=== PATIENT | female | born 1960 | race Caucasian/White ===

== ENCOUNTER → 2016-08-27 | Outpatient (REF) | payer OTHER ==
[2016-08-27 12:07] LABS: INR 2.4
== END ==
LOC: M LABDRAWC 11:07
PROVIDERS: ATTEND Surgery Vascular Surgery
DX: Z79.01 Long term (current) use of anticoagulants (principal)

== ENCOUNTER → 2016-09-03 | Outpatient (REF) | payer OTHER ==
[2016-09-03 12:08] LABS: INR 3.15
== END ==
LOC: M LABDRAWC 11:10
PROVIDERS: ATTEND Surgery Vascular Surgery
DX: Z79.01 Long term (current) use of anticoagulants (principal)

== ENCOUNTER → 2016-09-10 | Outpatient (REF) | payer OTHER ==
[2016-09-10 11:22] LABS: INR 2.11
== END ==
LOC: M LABDRAWC 11:04
PROVIDERS: ATTEND Surgery Vascular Surgery
DX: Z79.01 Long term (current) use of anticoagulants (principal)

== ENCOUNTER → 2016-09-16 | Outpatient (REF) | payer OTHER ==
[2016-09-16 11:31] LABS: INR 3.17
== END ==
LOC: M LABDRAWC 11:04
PROVIDERS: ATTEND Surgery Vascular Surgery
DX: Z79.01 Long term (current) use of anticoagulants (principal)

== ENCOUNTER → 2016-09-24 | Outpatient (REF) | payer OTHER ==
[2016-09-24 11:53] LABS: INR 2.55
== END ==
LOC: M LABDRAWC 11:35
PROVIDERS: ATTEND Surgery Vascular Surgery
DX: Z79.01 Long term (current) use of anticoagulants (principal)

== ENCOUNTER → 2016-09-29 | Outpatient (REF) | payer OTHER ==
[2016-09-29 17:36] LABS: ANION GAP 6 MEQ/L (8-16); BLOOD UREA NITROGEN 17 MG/DL (7-18); CALCIUM LEVEL 8.7 MG/DL (8.5-10.1); CARBON DIOXIDE LEVEL 30 MEQ/L (21-32); CHLORIDE LEVEL 106 MEQ/L (98-107); CREATININE FOR GFR 0.75 MG/DL (0.55-1.02); FREE T4 0.78 NG/DL (0.76-1.46); GLOMERULAR FILTRATION RATE > 60.0 (>51); GLUCOSE, FASTING 86 MG/DL (70-105); POTASSIUM SERUM 4.2 MEQ/L (3.5-5.1); SODIUM LEVEL 142 MEQ/L (136-145)
== END ==
LOC: M SFHCCLAY 11:24
PROVIDERS: ATTEND Family Medicine
DX: G25.0 Essential tremor (principal)

== ENCOUNTER → 2016-10-08 | Outpatient (REF) | payer OTHER ==
[2016-10-08 11:48] LABS: INR 2.32
== END ==
LOC: M LABDRAWC 11:28
PROVIDERS: ATTEND Surgery Vascular Surgery
DX: Z79.01 Long term (current) use of anticoagulants (principal)

== ENCOUNTER → 2016-10-22 | Outpatient (REF) | payer OTHER ==
[2016-10-22 11:33] LABS: INR 1.63
== END ==
LOC: M LABDRAWC 11:09
PROVIDERS: ATTEND Surgery Vascular Surgery
DX: Z79.01 Long term (current) use of anticoagulants (principal)

== ENCOUNTER → 2016-10-29 | Outpatient (REF) | payer OTHER ==
[2016-10-29 13:08] LABS: INR 3.17
== END ==
LOC: M LABDRAWC 11:56
PROVIDERS: ATTEND Surgery Vascular Surgery
DX: Z79.01 Long term (current) use of anticoagulants (principal)

== ENCOUNTER → 2016-11-05 | Outpatient (REF) | payer OTHER ==
[2016-11-05 11:44] LABS: INR 1.74
== END ==
LOC: M LABDRAWC 11:21
PROVIDERS: ATTEND Surgery Vascular Surgery
DX: Z79.01 Long term (current) use of anticoagulants (principal)

== ENCOUNTER → 2016-11-15 | Outpatient (REF) | payer OTHER ==
[2016-11-15 12:57] LABS: INR 2.53
== END ==
LOC: M LABDRAWC 11:49
PROVIDERS: ATTEND Surgery Vascular Surgery
DX: Z79.01 Long term (current) use of anticoagulants (principal)

== ENCOUNTER → 2016-11-23 | Outpatient (REF) | payer OTHER ==
[2016-11-23 12:09] LABS: INR 2.52
== END ==
LOC: M LABDRAWC 11:38
PROVIDERS: ATTEND Surgery Vascular Surgery
DX: Z79.01 Long term (current) use of anticoagulants (principal)

== ENCOUNTER → 2016-11-25 | Outpatient (CLI) | payer OTHER ==
--- NOTE | 2016-11-25 16:15 | REP ---
CT of the chest without IV contrast for follow up of lung nodules: Comparisons are the low-dose lung screening CT dated 08/02/2016 and a remote chest CT of 08/27/2010. On the low-dose lung screening CT dated 08/02/2016 there was a ground-glass nodule in the superior segment of the left lower lobe measuring 9 mm. This is again identified on the study today on image 43 and measures 8 mm. On the study today there are multiple other lung nodules, all unchanged from 08/27/2010 as follows: Image 41, left upper lobe, probable vascular confluence. Image 56, right middle lobe. Image 64, right lower lobe. Image 70, right lower lobe. Image 80, left lower lobe. Image 83, right lower lobe. There is no mediastinal or axillary adenopathy. In the absence of IV contrast the study is insensitive for hilar adenopathy. The thoracic aorta is unremarkable. Cardiac size is normal. The visualized upper abdominal contents are unremarkable. There is no adrenal mass. Impression: Multiple lung nodules as described. There is a ground-glass nodule in the superior segment of the left lower lobe that is stable from 08/02/2016. Continued follow up of this nodule is recommended. All of the other nodules are stable from 08/27/2010 and are likely benign. Signed by Shun Penny MD 11/25/2016 04:06 P
== END ==
LOC: M RAD 14:54
PROVIDERS: ATTEND Internal Medicine Pulmonary Disease
DX: R91.8 Other nonspecific abnormal finding of lung field (principal)

== ENCOUNTER → 2016-12-17 | Outpatient (REF) | payer OTHER ==
[2016-12-17 14:36] LABS: INR 6.39
== END ==
LOC: M LABDRAWC 11:40
PROVIDERS: ATTEND Surgery Vascular Surgery
DX: Z79.01 Long term (current) use of anticoagulants (principal)

== ENCOUNTER → 2016-12-20 | Outpatient (REF) | payer OTHER ==
[2016-12-20 11:59] LABS: INR 1.25
== END ==
LOC: M LABDRWCV 11:08
PROVIDERS: ATTEND Surgery Vascular Surgery
DX: Z79.01 Long term (current) use of anticoagulants (principal)

== ENCOUNTER → 2016-12-27 | Outpatient (REF) | payer OTHER ==
[2016-12-27 12:21] LABS: INR 2.03
== END ==
LOC: M LABDRAWC 11:13
PROVIDERS: ATTEND Surgery Vascular Surgery
DX: Z79.01 Long term (current) use of anticoagulants (principal)

== ENCOUNTER → 2017-01-04 | Outpatient (REF) | payer OTHER ==
[2017-01-04 12:00] LABS: INR 1.52
== END ==
LOC: M LABDRAWC 11:15
PROVIDERS: ATTEND Surgery Vascular Surgery
DX: Z79.01 Long term (current) use of anticoagulants (principal)

== ENCOUNTER → 2017-01-11 | Outpatient (REF) | payer OTHER ==
[2017-01-11 12:10] LABS: INR 2.89
== END ==
LOC: M LABDRAWC 11:07
PROVIDERS: ATTEND Surgery Vascular Surgery
DX: Z51.81 Encounter for therapeutic drug level monitoring (principal); Z79.01 Long term (current) use of anticoagulants

== ENCOUNTER → 2017-01-18 | Outpatient (REF) | payer OTHER ==
[2017-01-18 12:39] LABS: INR 3.43
== END ==
LOC: M LABDRAWC 11:23
PROVIDERS: ATTEND Surgery Vascular Surgery
DX: Z51.81 Encounter for therapeutic drug level monitoring (principal); Z79.01 Long term (current) use of anticoagulants

== ENCOUNTER → 2017-01-20 | Outpatient (REF) | payer OTHER | LOC: M SFHCCLAY 11:26 | PROVIDERS: ATTEND Family Medicine | DX: J44.1 Chronic obstructive pulmonary disease with (acute) exacerbation (principal) ==

== ENCOUNTER → 2017-01-25 | Outpatient (REF) | payer OTHER ==
[2017-01-25 11:58] LABS: INR 2.66
== END ==
LOC: M LABDRAWC 11:16
PROVIDERS: ATTEND Physician Assistant
DX: Z51.81 Encounter for therapeutic drug level monitoring (principal); Z79.01 Long term (current) use of anticoagulants

== ENCOUNTER → 2017-02-01 | Outpatient (REF) | payer OTHER ==
[2017-02-01 12:04] LABS: INR 2.03
== END ==
LOC: M LABDRAWC 11:34
PROVIDERS: ATTEND Physician Assistant
DX: Z51.81 Encounter for therapeutic drug level monitoring (principal); Z79.01 Long term (current) use of anticoagulants

== ENCOUNTER → 2017-02-08 | Outpatient (REF) | payer OTHER ==
[2017-02-08 13:19] LABS: INR 2.6
== END ==
LOC: M LABDRAWC 11:16
PROVIDERS: ATTEND Physician Assistant
DX: Z51.81 Encounter for therapeutic drug level monitoring (principal); Z79.01 Long term (current) use of anticoagulants

== ENCOUNTER → 2017-02-15 | Outpatient (REF) | payer OTHER ==
[2017-02-15 11:47] LABS: INR 1.09
== END ==
LOC: M LABDRAWC 11:26
PROVIDERS: ATTEND Physician Assistant
DX: Z51.81 Encounter for therapeutic drug level monitoring (principal); Z79.01 Long term (current) use of anticoagulants

== ENCOUNTER → 2017-02-23 | Outpatient (REF) | payer OTHER ==
[2017-02-23 11:59] LABS: INR 1.94
== END ==
LOC: M LABDRAWC 11:35
PROVIDERS: ATTEND Physician Assistant
DX: Z51.81 Encounter for therapeutic drug level monitoring (principal); Z79.01 Long term (current) use of anticoagulants

== ENCOUNTER → 2017-03-02 | Outpatient (REF) | payer OTHER ==
[2017-03-02 11:50] LABS: INR 1.89
== END ==
LOC: M LABDRAWC 11:21
PROVIDERS: ATTEND Physician Assistant
DX: Z51.81 Encounter for therapeutic drug level monitoring (principal); Z79.01 Long term (current) use of anticoagulants

== ENCOUNTER → 2017-03-09 | Outpatient (REF) | payer OTHER ==
[2017-03-09 11:45] LABS: INR 1.9
== END ==
LOC: M LABDRAWC 11:10
PROVIDERS: ATTEND Physician Assistant
DX: Z51.81 Encounter for therapeutic drug level monitoring (principal); Z79.01 Long term (current) use of anticoagulants

== ENCOUNTER → 2017-03-16 | Outpatient (REF) | payer OTHER ==
[2017-03-16 11:55] LABS: INR 2.42
== END ==
LOC: M LABDRAWC 11:36
PROVIDERS: ATTEND Physician Assistant
DX: Z51.81 Encounter for therapeutic drug level monitoring (principal); Z79.01 Long term (current) use of anticoagulants

== ENCOUNTER → 2017-03-30 | Outpatient (REF) | payer OTHER ==
[2017-03-30 12:09] LABS: INR 3.16
== END ==
LOC: M LABDRAWC 11:26
PROVIDERS: ATTEND Physician Assistant
DX: Z51.81 Encounter for therapeutic drug level monitoring (principal); Z79.01 Long term (current) use of anticoagulants

== ENCOUNTER → 2017-04-06 | Outpatient (REF) | payer OTHER ==
[2017-04-06 11:50] LABS: INR 2.47
== END ==
LOC: M LAB REF 11:26
PROVIDERS: ATTEND Physician Assistant
DX: Z51.81 Encounter for therapeutic drug level monitoring (principal); Z79.01 Long term (current) use of anticoagulants

== ENCOUNTER → 2017-04-13 | Outpatient (REF) | payer OTHER ==
[2017-04-13 14:48] LABS: INR 2.66
== END ==
LOC: M LAB REF 07:12
PROVIDERS: ATTEND Physician Assistant
DX: Z51.81 Encounter for therapeutic drug level monitoring (principal); Z79.01 Long term (current) use of anticoagulants

== ENCOUNTER → 2017-04-20 | Outpatient (REF) | payer OTHER ==
[2017-04-20 12:13] LABS: INR 2.66
== END ==
LOC: M LAB REF 11:10
PROVIDERS: ATTEND Physician Assistant
DX: Z51.81 Encounter for therapeutic drug level monitoring (principal); Z79.01 Long term (current) use of anticoagulants

== ENCOUNTER → 2017-05-05 | Outpatient (REF) | payer OTHER ==
[2017-05-05 14:34] LABS: INR 2.49
== END ==
LOC: M LABDRAWC 12:16
PROVIDERS: ATTEND Physician Assistant
DX: Z51.81 Encounter for therapeutic drug level monitoring (principal); Z79.01 Long term (current) use of anticoagulants

== ENCOUNTER → 2017-05-25 | Outpatient (REF) | payer OTHER ==
[2017-05-25 12:02] LABS: INR 2.44
== END ==
LOC: M LABDRAWC 11:29
PROVIDERS: ATTEND Physician Assistant
DX: Z79.01 Long term (current) use of anticoagulants (principal)

== ENCOUNTER → 2017-06-08 | Outpatient (REF) | payer OTHER ==
[2017-06-08 12:17] LABS: INR 3.35
== END ==
LOC: M LAB REF 11:19
PROVIDERS: ATTEND Physician Assistant
DX: Z51.81 Encounter for therapeutic drug level monitoring (principal); Z79.01 Long term (current) use of anticoagulants

== ENCOUNTER → 2017-06-15 | Outpatient (REF) | payer OTHER ==
[2017-06-15 12:43] LABS: INR 2.55
== END ==
LOC: M LABDRAWC 11:25
PROVIDERS: ATTEND Physician Assistant
DX: Z51.81 Encounter for therapeutic drug level monitoring (principal); Z79.01 Long term (current) use of anticoagulants; G45.9 Transient cerebral ischemic attack, unspecified

== ENCOUNTER → 2017-07-04 | Outpatient (REF) | payer OTHER | LOC: M SFHCCLAY 09:26 | PROVIDERS: ATTEND Family Medicine | DX: N30.00 Acute cystitis without hematuria (principal) ==

== ENCOUNTER → 2017-07-12 | Outpatient (REF) | payer OTHER ==
[2017-07-12 12:33] LABS: INR 3.68
== END ==
LOC: M LABDRAWC 12:00
PROVIDERS: ATTEND Physician Assistant
DX: Z79.01 Long term (current) use of anticoagulants (principal); G45.9 Transient cerebral ischemic attack, unspecified

== ENCOUNTER → 2017-07-19 | Outpatient (REF) | payer OTHER ==
[2017-07-19 11:44] LABS: INR 1.98
== END ==
LOC: M LABDRAWC 11:20
PROVIDERS: ATTEND Physician Assistant
DX: Z79.01 Long term (current) use of anticoagulants (principal); G45.9 Transient cerebral ischemic attack, unspecified

== ENCOUNTER → 2017-07-26 | Outpatient (REF) | payer OTHER ==
[2017-07-26 11:53] LABS: INR 2.71
== END ==
LOC: M LABDRAWC 11:24
PROVIDERS: ATTEND Physician Assistant
DX: Z51.81 Encounter for therapeutic drug level monitoring (principal); Z79.01 Long term (current) use of anticoagulants; G45.9 Transient cerebral ischemic attack, unspecified

== ENCOUNTER → 2017-08-02 | Outpatient (REF) | payer OTHER ==
[2017-08-02 12:02] LABS: INR 2.57
== END ==
LOC: M LABDRAWC 07:03
PROVIDERS: ATTEND Physician Assistant
DX: Z51.81 Encounter for therapeutic drug level monitoring (principal); Z79.01 Long term (current) use of anticoagulants; G45.9 Transient cerebral ischemic attack, unspecified

== ENCOUNTER → 2017-08-18 | Outpatient (REF) | payer OTHER ==
[2017-08-18 11:50] LABS: INR 2.08
== END ==
LOC: M LABDRAWC 11:16
DX: Z79.01 Long term (current) use of anticoagulants (principal); G45.9 Transient cerebral ischemic attack, unspecified

== ENCOUNTER → 2017-10-05 | Outpatient (REF) | payer OTHER ==
[2017-10-05 11:21] LABS: INR 3.96; PROTHROMBIN TIME 40.7 SECONDS (12.4-14.5)
[2017-10-05 11:43] LABS: ALBUMIN/GLOBULIN RATIO 1.18 (1.00-1.93); ALKALINE PHOSPHATASE 80 U/L (45-117); ALT/SGPT 25 U/L (12-78); ANION GAP 5 MEQ/L (8-16); AST/SGOT 18 U/L (7-37); BILIRUBIN,TOTAL 0.2 MG/DL (0.2-1.0); BLOOD UREA NITROGEN 11 MG/DL (7-18); CALCIUM LEVEL 8.8 MG/DL (8.5-10.1); CARBON DIOXIDE LEVEL 30 MEQ/L (21-32); CHLORIDE LEVEL 103 MEQ/L (98-107); CHOLESTEROL LEVEL 191 MG/DL (<200); CHOLESTEROL RISK RATIO 2.076 (<5); CREATININE FOR GFR 0.61 MG/DL (0.55-1.30); GLOMERULAR FILTRATION RATE > 60.0 (>51); GLUCOSE, FASTING 94 MG/DL (70-100); HDL CHOLESTEROL 92 MG/DL (>40); LDL CHOLESTEROL 78.2 MG/DL (<100); NON-HDL-C 99 MG/DL; POTASSIUM SERUM 4.5 MEQ/L (3.5-5.1); SODIUM LEVEL 138 MEQ/L (136-145); TOTAL PROTEIN 7.4 GM/DL (6.4-8.2); TRIGLYCERIDES LEVEL 104 MG/DL (<150)
== END ==
LOC: M SFHCCLAY 09:31
DX: E78.00 Pure hypercholesterolemia, unspecified (principal); M54.16 Radiculopathy, lumbar region; Z79.01 Long term (current) use of anticoagulants

== ENCOUNTER → 2017-10-13 | Outpatient (REF) | payer OTHER ==
[2017-10-13 11:49] LABS: INR 4.74; PROTHROMBIN TIME 47.1 SECONDS (12.4-14.5)
== END ==
LOC: M SFHCCLAY 07:25
DX: G45.8 Other transient cerebral ischemic attacks and related syndromes (principal); Z79.01 Long term (current) use of anticoagulants

== ENCOUNTER → 2017-11-14 | Outpatient (CLI) | payer OTHER | LOC: M RAD 12:06 | DX: I65.23 Occlusion and stenosis of bilateral carotid arteries (principal) | CPT/HCPCS: 93880 ==

== ENCOUNTER → 2018-05-04 | Outpatient (REF) | payer OTHER | LOC: M LAB REF 17:12 | DX: J44.1 Chronic obstructive pulmonary disease with (acute) exacerbation (principal) | CPT/HCPCS: 87205 ==

== ENCOUNTER → 2018-05-04 | Outpatient (CLI) | payer OTHER | LOC: M SMT 10:39 | DX: R05 Cough (principal) | CPT/HCPCS: 71046 ==

== ENCOUNTER → 2018-06-01 | Outpatient (CLI) | payer OTHER | LOC: M RAD 10:43 | DX: I65.23 Occlusion and stenosis of bilateral carotid arteries (principal) | CPT/HCPCS: 93880 ==

== ENCOUNTER → 2018-06-07 | Outpatient (CLI) | payer OTHER ==
[~2018-06-07] MED LIST: PROHANCE 279.3MG/ML 5ML VIAL (A9576) As Ordered
== END ==
LOC: M RAD 11:03
DX: I65.23 Occlusion and stenosis of bilateral carotid arteries (principal); H53.8 Other visual disturbances
CPT/HCPCS: A9576

== ENCOUNTER → 2018-12-05 | Outpatient (CLI) | payer OTHER ==
--- NOTE | 2018-12-05 12:18 | REP ---
Bilateral carotid duplex ultrasound: Comparison is 06/01/2018. Peak flow velocity analysis: Peak flow velocity analysis: RIGHT LEFT ICA Peak flow velocity cm/sec 114.2 occluded ICA Diastolic flow velocity cm/sec 45.0 occluded ICA/CCA Ratio 1.3 occluded ECA Peak flow velocity cm/sec 107.4 18.8 CCA Peak flow velocity cm/sec 90.9 occluded. Right carotid system: Peak flow velocities are normal. There is moderate atheromatous plaque in the bulb extending into the ICA and ECA. The findings are compatible with less than 50% stenosis. No significant stenosis. Left carotid system: On the comparison study, the common carotid artery, ICA and ECA were totally occluded. There has been interval revascularization of the ECA and there is now vascular flow in the ECA. The flow velocity is normal. There is no evidence of stenosis. The the patient has a left common carotid artery - ICA endovascular stent. However, the common carotid artery and ICA, including the stent, are totally occluded. Vertebral arteries: There is antegrade flow in the vertebral arteries bilaterally. Electronically Signed by Shun Penny MD 12/05/2018 12:10 P
== END ==
LOC: M RAD 10:12
PROVIDERS: ATTEND Surgery Vascular Surgery
DX: I65.23 Occlusion and stenosis of bilateral carotid arteries (principal)

== ENCOUNTER → 2018-12-08 | Outpatient (CLI) | payer OTHER ==
--- NOTE | 2018-12-08 10:56 | REP ---
Low-dose lung screening CT: The study is performed without IV contrast. The images are presented at lung windowing only. Comparison is 11/28/2017. There are the following lung nodules: Image 44, left upper lobe parenchymal scar, unchanged. Image 48, left lower lobe, ground-glass density, 8 mm, unchanged. Image 58, right middle lobe along the minor fissure, 6 mm nodule, unchanged. Image 69, right lower lobe, 5 mm nodule, unchanged. Image 86, right lower lobe, 6 mm nodule, unchanged. There are no new nodules or masses. There are no infiltrates or pleural effusions. There are bulla throughout the lung perales bilaterally, predominately in the upper lobes. Impression: Multiple lung nodules as described, unchanged from the prior study. These are all category II lung nodules. The probability of malignancy is less than 1%. Depending on risk factors, annual follow-up low-dose lung CT is recommended. Electronically Signed by Shun Penny MD 12/08/2018 10:48 A
== END ==
LOC: M RAD 10:01
PROVIDERS: ATTEND Internal Medicine Pulmonary Disease
DX: Z12.2 Encounter for screening for malignant neoplasm of respiratory organs (principal); Z87.891 Personal history of nicotine dependence; R91.8 Other nonspecific abnormal finding of lung field

== ENCOUNTER → 2019-01-27 | Outpatient (CLI) | payer OTHER ==
[2019-01-27 08:59] LABS: BASO # 0.1 10^3/uL (0.0-0.2); EOS % 0.5 % (0.0-3.0); HEMATOCRIT 46.7 % (36.0-47.0); HEMOGLOBIN 15.9 g/dl (12.0-15.5); LYMPH # 1.7 10^3/uL (1.5-4.5); LYMPH % 22.6 % (24.0-44.0); MEAN CORPUSCULAR HEMOGLOBIN 34.3 pg (27.0-33.0); MEAN CORPUSCULAR VOLUME 100.6 fl (80.0-96.0); MONO # 0.5 10^3/uL (0.0-0.8); NEUTROPHILS # 5.3 10^3/uL (1.8-7.7); NEUTROPHILS % 68.5 % (36.0-66.0); PLATELET COUNT, AUTOMATED 243 10^3/uL (150-450); RED BLOOD COUNT 4.64 10^6/uL (4.00-5.40); WHITE BLOOD COUNT 7.7 10^3/uL (4.0-10.0)
[2019-01-27 09:24] LABS: ERYTHROCYTE SEDIMENTATION RATE 8 mm/hr (0-30)
[2019-01-27 09:26] LABS: ALBUMIN 4.1 GM/DL (3.2-5.2); ALT/SGPT 17 U/L (12-78); BILIRUBIN,TOTAL 0.3 MG/DL (0.2-1.0); BLOOD UREA NITROGEN 10 MG/DL (7-18); CARBON DIOXIDE LEVEL 29 MEQ/L (21-32); CHLORIDE LEVEL 107 MEQ/L (98-107); CREATININE FOR GFR 0.64 MG/DL (0.55-1.30); GLOMERULAR FILTRATION RATE > 60.0 (>45); GLUCOSE, FASTING 93 MG/DL (70-100); POTASSIUM SERUM 3.9 MEQ/L (3.5-5.1); RHEUMATOID FACTOR QUANT < 10.0 IU/ML (<15.0); SODIUM LEVEL 141 MEQ/L (136-145); THYROID STIMULATING HORMONE 0.512 uIU/ML (0.358-3.740); TOTAL PROTEIN 7.3 GM/DL (6.4-8.2)
[2019-01-29 11:16] LABS: VITAMIN B12 LEVEL 497 PG/ML
[2019-01-30 10:35] LABS: DRVV SCREEN 40.4 SEC
[2019-01-31 10:10] LABS: ANTI DOUBLE STRAND-DNA AB 1 IU/mL (0-9); ANTINUCLEAR ANTIBODIES DIRECT Positive (Negative); COPPER PLASMA 128 ug/dL (72-166); LEAD BLOOD ADULT 1 ug/dL (0-4); MERCURY LEVEL None Detected ug/L (0.0-14.9); RNP ANTIBODIES <0.2 AI (0.0-0.9); SJOGREN'S ANTI SS-A <0.2 AI (0.0-0.9); SJOGREN'S ANTI SS-B <0.2 AI (0.0-0.9); SMITH ANTIBODIES <0.2 AI (0.0-0.9); VITAMIN B6,PYRIDOXAL PHOSPHATE 4.6 ug/L (2.0-32.8); VITAMIN E(ALPHA TOCOPHEROL) 6.6 mg/L (9.0-29.0)
== END ==
LOC: M LAB 07:56
PROVIDERS: ATTEND Psychiatry & Neurology Neurology
DX: R25.1 Tremor, unspecified (principal)

== ENCOUNTER 2019-03-25 19:50 | Emergency (ER) | payer OTHER ==
--- NOTE | 2019-03-25 20:17 | REPVR ---
EXAM: CT Head Without Contrast EXAM DATE/TIME: 03/25/2019 8:02 PM CLINICAL HISTORY: 58 years old, female; Weakness, facial; Additional info: Possible stroke TECHNIQUE: Imaging protocol: Computed tomography images of the head without contrast. Radiation optimization: All CT scans at this facility use at least one of these dose optimization techniques: automated exposure control; mA and/or kV adjustment per patient size (includes targeted exams where dose is matched to clinical indication); or iterative reconstruction. Other technique: STROKE PROTOCOL was implemented. COMPARISON: MRI-Brain W/O FOLL BY WITH 06/07/2018 11:32 AM FINDINGS: Brain: There is no evidence of intracranial bleed. Ventricles: Normal. No ventriculomegaly. Bones/joints: No evidence of fracture. Sinuses: Clear paranasal sinuses. Mastoid air cells: Clear mastoid air cells. Soft tissues: Unremarkable. Vasculature: On the MRI examination of 06/07/2018 there was occlusion of the distal left internal carotid artery. There is no evidence of acute stroke. An MRI scan would be more sensitive for this. IMPRESSION: 1. 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 2. There is no evidence of acute bleed. 3. There is no evidence of acute stroke. An MRI scan is more sensitive. ASSESSMENT: ASPECTS (Elsi Stroke Program Early CT Score) is 10. Electronically signed by: Irving Oshea On 03/25/2019 20:16:57 PM
[2019-03-25 20:36] LABS: BASO # 0.1 10^3/uL (0.0-0.2); BASO % 1.3 % (0.0-1.0); EOS # 0.1 10^3/uL (0.0-0.50); EOS % 1.8 % (0.0-3.0); HEMATOCRIT 44.2 % (36.0-47.0); HEMOGLOBIN 15.1 g/dl (12.0-15.5); LYMPH # 2.1 10^3/uL (1.5-4.5); MEAN CORPUSCULAR HEMOGLOBIN 33.8 pg (27.0-33.0); MEAN CORPUSCULAR HGB CONC 34.2 g/dl (32.0-36.5); MEAN CORPUSCULAR VOLUME 98.9 fl (80.0-96.0); MONO # 0.6 10^3/uL (0.0-0.8); MONO % 8.5 % (0.0-5.0); NEUTROPHILS # 3.9 10^3/uL (1.8-7.7); NEUTROPHILS % 57.3 % (36.0-66.0); PLATELET COUNT, AUTOMATED 253 10^3/uL (150-450); RED BLOOD COUNT 4.47 10^6/uL (4.00-5.40); WHITE BLOOD COUNT 6.7 10^3/uL (4.0-10.0)
[2019-03-25 20:47] LABS: INR 1.01
[2019-03-25 20:48] LABS: PARTIAL THROMBOPLASTIN TIME 30.5 SECONDS (25.0-38.4)
[2019-03-25 21:00] LABS: BLOOD UREA NITROGEN 8 MG/DL (7-18); CARBON DIOXIDE LEVEL 30 MEQ/L (21-32); CHLORIDE LEVEL 103 MEQ/L (98-107); CK-MB VALUE MASS < 1.0 NG/ML (<3.6); CPK CREATINE PHOSPHOKINASE 64 U/L (26-192); GLOMERULAR FILTRATION RATE > 60.0 (>45); GLUCOSE, FASTING 89 MG/DL (70-100); MB/CK RELATIVE INDEX 1.56 (< OR =4); SODIUM LEVEL 137 MEQ/L (136-145); TROPONIN I < 0.02 NG/ML (< 0.10)
[2019-03-25] MEDS ORDERED: ALTEPLASE RECOMBINANT IV ONE ×2 (21:00)
[2019-03-25] MEDS ORDERED: ALTEPLASE 100MG INJ (J2997) IV ONE ×2 (21:00)
[2019-03-25 21:15] VITALS: BP 117/71
--- NOTE | 2019-03-26 00:47 | REP ---
Clinical: Acute cerebrovascular accident . Comparison: 05/04/2018 . Findings: The mediastinum and cardiac silhouette are stable and within normal limits for portable technique. The lung perales are clear without acute consolidation, effusion, or pneumothorax. Skeletal structures are intact. Impression: No acute cardiopulmonary process appreciated. Electronically Signed by Maurice Antunez MD 03/26/2019 12:39 A
--- NOTE | 2019-03-26 19:49 | ECGEPIP ---
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
[2019-07-13] MEDS ORDERED: VENTAER INH (11:06)
[2019-07-13] MEDS ORDERED: ATOR40TA75 PO (11:06)
[2019-07-13] MEDS ORDERED: NORC1TAB7 PO (11:06)
[2019-07-13] MEDS ORDERED: ECOT81TA5 PO (11:06)
[2019-07-13] MEDS ORDERED: LOSA100T50 PO (11:06)
[2019-07-13] MEDS ORDERED: PLAV1TAB2 PO (11:06)
[2019-07-13] MEDS ORDERED: TREL1AER IN (11:06)
[2019-07-13] MEDS ORDERED: TIZA4CAP PO (11:06)
[2019-07-13] MEDS ORDERED: XANA1TAB2 PO (11:18)
== END 2019-03-25 21:28 | disposition short-term general hospital (02) ==
LOC: M ED 19:50
DX: I63.9 Cerebral infarction, unspecified (principal); I10 Essential (primary) hypertension; J44.9 Chronic obstructive pulmonary disease, unspecified; F33.9 Major depressive disorder, recurrent, unspecified; E78.9 Disorder of lipoprotein metabolism, unspecified; I25.10 Atherosclerotic heart disease of native coronary artery without angina pectoris; Z88.0 Allergy status to penicillin; Z88.1 Allergy status to other antibiotic agents; Z88.5 Allergy status to narcotic agent; Z88.8 Allergy status to other drugs, medicaments and biological substances
CPT/HCPCS: 70450; 71045; 80048; 82550; 82553; 85025; 85610; 85730; 86850; 86900; 86901; 93005; 93041; 94760; 96374; 99285; J2997

== ENCOUNTER → 2019-04-07 | Outpatient (CLI) | payer OTHER ==
--- NOTE | 2019-04-07 11:09 | REP ---
CHEST PA AND LATERAL: 04/07/2019. Clinical history: Cough. Comparison: Portable chest 03/25/2019. Findings: Lung perales are hyperinflated with flattened diaphragms and increased AP diameter of the chest consistent with COPD. Bullous emphysematous changes mid and upper lung zone. Some minor basilar fibrotic changes are also seen. There is pulmonary artery hypertension consistent with that COPD. Heart size not enlarged and no vascular redistribution or edema. The aorta is calcified at the arch but without aneurysm. Bony thorax unremarkable. Impression: 1. COPD with bullous emphysematous changes and some basilar fibrosis. No acute infiltrate, effusion, cardiomegaly or edema. Stable chest. Electronically Signed by Zhang Edwards MD 04/07/2019 09:48 P
== END ==
LOC: M LRY 10:04
PROVIDERS: ATTEND Student in an Organized Health Care Education/Training Program
DX: R05 Cough (principal)

== ENCOUNTER → 2019-05-10 | Outpatient (REF) | payer OTHER | LOC: M LAB REF 12:44 | PROVIDERS: ATTEND Internal Medicine Pulmonary Disease | DX: R05 Cough (principal) ==

== ENCOUNTER → 2019-05-28 | Outpatient (CLI) | payer OTHER ==
[2019-05-30 11:09] LABS: ANTI DOUBLE STRAND-DNA AB 1 IU/mL (0-9); ANTINUCLEAR ANTIBODIES DIRECT Positive (Negative); RNP ANTIBODIES <0.2 AI (0.0-0.9); SJOGREN'S ANTI SS-A <0.2 AI (0.0-0.9); SJOGREN'S ANTI SS-B <0.2 AI (0.0-0.9); SMITH ANTIBODIES <0.2 AI (0.0-0.9)
== END ==
LOC: M LAB 10:17
PROVIDERS: ATTEND Psychiatry & Neurology Neurology
DX: R79.9 Abnormal finding of blood chemistry, unspecified (principal)

== ENCOUNTER → 2019-05-28 | Outpatient (CLI) | payer OTHER ==
--- NOTE | 2019-05-28 13:55 | REP ---
CT of the chest for follow up of multiple lung nodules: The study is performed without IV contrast. Comparisons are 08/27/2010, 11/25/2016 and 11/28/2017. There is a new 8 mm spiculated nodule in the apex of the right upper lobe on image 14, not present on any of the prior studies. This is a category for a lung nodule with the probability of malignancy five - 15%. 3-month follow-up chest CT is recommended. Additionally, PET / CT might be considered for further evaluation. The following lung nodules are all stable and unchanged from 08/27/2010: Image 42, left upper lobe. Image 55, right upper lobe. Image 65, right lower lobe. Image 70, right lower lobe. Image 82, right lower lobe. Image 82, left lower lobe. Additionally, there is an 8 mm ground-glass density in the superior segment of the left lower lobe on image 45, unchanged from 11/25/2016. There is no mediastinal or axillary lymphadenopathy. The study is insensitive for hilar lymphadenopathy in the absence of IV contrast. The unenhanced thoracic aorta is unremarkable. Cardiac size is normal. The visualized upper abdominal contents are unremarkable. There is no adrenal mass. Impression: There is a new spiculated 8 millimeter right upper lobe lung nodule as discussed above. Follow-up CT in 3 months is recommended. Additionally, PET / CT might be considered. There are multiple lung nodules that are stable compared to 08/27/2010. There is a ground-glass density in the superior segment of the left upper lobe, stable from 11/25/2016. Electronically Signed by Shun Penny MD 05/28/2019 01:46 P
== END ==
LOC: M RAD 10:31
PROVIDERS: ATTEND Internal Medicine Pulmonary Disease
DX: R91.8 Other nonspecific abnormal finding of lung field (principal)

== ENCOUNTER → 2019-06-23 | Outpatient (CLI) | payer OTHER ==
--- NOTE | 2019-06-23 10:28 | REP ---
Clinical: Cough. Technique: PA and lateral. Comparison: 04/07/2019. Findings: Mediastinum and cardiac silhouette normal. Chronic COPD/emphysematous changes. No focal consolidation, effusion, or pneumothorax. Skeletal structures demonstrate osteopenia and degenerative changes. Impression: Chronic stable changes. No acute cardiopulmonary process. Electronically Signed by Maurice Antunez MD 06/23/2019 10:19 A
== END ==
LOC: M LRY 10:02
PROVIDERS: ATTEND Nurse Practitioner Family
DX: R05 Cough (principal)

== ENCOUNTER → 2019-06-23 | Outpatient (REF) | payer OTHER | LOC: M SFHCLERA 09:42 | PROVIDERS: ATTEND Nurse Practitioner Family | DX: R53.81 Other malaise (principal) ==

== ENCOUNTER → 2019-07-12 | Outpatient (CLI) | payer OTHER ==
[~2019-07-12] MED LIST changes: +ATOR40TA75 PO; +ECOT81TA5 PO; +LOSA100T50 PO; +NORC1TAB7 PO; +PLAV1TAB2 PO; -PROHANCE 279.3MG/ML 5ML VIAL (A9576) As Ordered; +TIZA4CAP PO; +TREL1AER IN; +VENTAER INH; +XANA1TAB2 PO
--- NOTE | 2019-07-12 19:15 | REP ---
CT chest without contrast: History: Solitary pulmonary nodule. Comparison CT study May 28, 2019, December 08, 2018, November 27, 2017, and November 25, 2016. CT findings: The recently identified 10 mm spiculated nodule in the right lung apex is again seen unchanged from most recent prior study of May 28, 2019. It is felt to be unchanged in size by my measurement in the interval since May 28, 2019. This was not visible at the time of the CT study from December 08, 2018. This nodule measures 14.7 mm in craniocaudal span on coronal MPR images. Multiple other solid and non solid nodules are seen in the lung perales bilaterally all of the rest of which are unchanged from August 02, 2016 prior study. There is a small amount of retained mucus in the bronchus intermedius on the right today. Emphysematous changes are again noted in the lungs are quite hyperinflated. No pleural or pericardial effusion is seen. No hilar or mediastinal mass or adenopathy is observed. There is extensive vascular calcification again noted. No adrenal lesion is observed. There is an accessory splenule in the left upper quadrant of the abdomen. Impression: COPD. Multiple stable pulmonary nodules. Recently identified spiculated nodule in the right upper lobe measures 10 x 15 mm. There is a new nodule in the left upper lobe and medially 6 mm in diameter with ill-defined margins question inflammatory lesion. There is an additional nodule in the left lung apex which is a new finding from May 28, 2019. This measures 6 mm in diameter. It has an ill-defined margins on coronal and sagittal multiplanar re-formation images and may be inflammatory. Electronically Signed by Rodrigo Garcia MD 07/12/2019 07:42 P
== END ==
LOC: M RAD 16:57
PROVIDERS: ATTEND Internal Medicine Pulmonary Disease
DX: R91.8 Other nonspecific abnormal finding of lung field (principal)

== ENCOUNTER 2019-07-18 05:43 | Day surgery (SDC) | payer OTHER ==
[~2019-07-18] VITALS: Ht 162.6 cm; Wt 49.9 kg
[2019-07-18] MEDS ORDERED: LIDOCAINE 1% MDV 20ML VIAL SQ PRN (06:00)
[2019-07-18] MEDS ORDERED: LR 1,000 ML IV ONE (06:00)
[2019-07-18] MEDS ORDERED: EPINEPHrine 1MG/10ML SYRINGE 1.5IN As Ordered ONE (06:58)
[2019-07-18] MEDS ORDERED: THROMBIN SOLN 20,000 UNITS KIT As Ordered ONE (06:58)
[2019-07-18] MEDS ORDERED: LIDOCAINE 1% SDV INJ 30 ML VIAL As Ordered ONE (06:58)
[2019-07-18] MEDS ORDERED: LIDOCAINE 4% TOPICAL SOLN 50 ML BTL As Ordered ONE (06:58)
[2019-07-18] MEDS ORDERED: LIDOCAINE VISCOUS 2% SOLN 15ML UDC As Ordered ONE (06:59)
[2019-07-18] MEDS ORDERED: SUGAMMADEX SODIUM 500 MG/5 ML VIAL (BRIDION) As Ordered ONE (07:11)
[2019-07-18] MEDS ORDERED: ONDANSETRON 4MG/2ML VIAL (J2405) As Ordered ONE (07:11)
[2019-07-18] MEDS ORDERED: ROCURONIUM BROMIDE 50 MG/5 ML VIAL As Ordered ONE (07:11)
[2019-07-18] MEDS ORDERED: PROPOFOL 200 MG/20 ML VIAL As Ordered ONE (07:11)
[2019-07-18] MEDS ORDERED: LIDOCAINE 2% INJ 100 MG/5 ML SDV (FOR ANES.) As Ordered ONE (07:11)
[2019-07-18] MEDS ORDERED: MIDAZOLAM INJ 2 MG/2 ML VIAL (J2250) As Ordered ONE (07:11)
[2019-07-18] MEDS ORDERED: fentaNYL 100 MCG/2 ML INJECTION (J3010) As Ordered ONE (07:11)
[2019-07-18] MEDS ORDERED: dexameTHASONE 4 MG/ML 1ML VIAL (J1100) As Ordered ONE (07:11)
[2019-07-18] MEDS ORDERED: CETACAINE SPRAY 5GM As Ordered ONE (07:15)
[2019-07-18] MEDS ORDERED: PHENYLephrine HCL 500 MCG/5 ML (100MCG/ML) SYRINGE (J2370) As Ordered ONE (07:56)
[2019-07-18] MEDS ORDERED: NORCO, ANEXSIA 5/325MG TABLET (HYDROcodone/ACETAMINOPHEN) PO PRN (09:15)
[2019-07-18] MEDS ORDERED: fentaNYL 100 MCG/2 ML INJECTION (J3010) IV PRN (09:15)
[2019-07-18] MEDS ORDERED: ONDANSETRON 4MG/2ML VIAL (J2405) IV PRN (09:15)
[2019-07-18] MEDS ORDERED: LR 1,000 ML IV SCH (09:15)
--- NOTE | 2019-07-18 09:20 | REP ---
Clinical: Status post endobronchial ultrasound evaluation Comparison: 06/23/2019 . Findings: The mediastinum and cardiac silhouette are stable and within normal limits for portable technique. The lung perales demonstrate diffuse stable chronic interstitial changes without acute consolidation, effusion, or pneumothorax. Skeletal structures are intact. Impression: No acute cardiopulmonary process appreciated. Electronically Signed by Maurice Antunez MD 07/18/2019 09:11 A
[2019-07-18 10:30] VITALS: BP 170/78
--- NOTE | 2019-07-18 10:35 | REP ---
CHEST SERIES: 10 views. HISTORY: Intraprocedural imaging. Solitary pulmonary nodule. 1 minute 4 seconds of fluoroscopy time is reported. FINDINGS: A sequence of 10 last image hold fluoroscopically obtained spot radiographs of the chest document bronchoscopic cannulation positioning in the right upper lobe. Electronically Signed by Rodrigo Garcia MD 07/18/2019 11:17 A
--- NOTE | 2019-07-20 11:35 | RO ---
DATE OF PROCEDURE: 07/18/2019 PREOPERATIVE DIAGNOSES: Right upper lobe nodule, unknown etiology. POSTOPERATIVE DIAGNOSES: Right upper lobe nodule, unknown etiology. PROCEDURE: Bronchoscopy with Precepta brushings and Electromagnetic Navigation Bronchoscopy (ENB) with a fine needle aspirate and bronchoalveolar lavage (BAL). SURGEON: Cain Conway ASSISTANT INFANT TODDLER TEACHER: ANESTHESIA: General. DESCRIPTION OF PROCEDURE: Procedure explained and consent obtained. Ms. Bush was intubated and sedation and pain management was handled by anesthesia. Rinard procedure was followed. Following this, bronchoscope was introduced into the trachea. The right and left lungs were examined. No endobronchial biopsies. There was appearance of mild bronchiectasis. There was a small amount of thick off-white secretions removed. Following this, two brushings were done in the right mainstem for Precepta GCS. Following this, the ENB probe was placed and registration was done. After registration, navigational bronchoscopy was used to attempt to locate the lesion. The lesion was apical and with the emphysema, it was very difficult to reach. Three different pathways were tried, although the difficulty was turning at a arnulfo that was still within the computer model of the airways. On one attempt, the probe was able to move within 1.1 cm of the lesion, and it appeared reasonable to biopsy at that point. Fluoroscopy was used and a fine needle aspirate was done. However, after that process was done, on fluoroscopy, the catheter seemed to have moved. For that reason, the ENB probe was placed and again multiple attempts were made to regain that position, which were unsuccessful. When it became clear that the attempts were not likely to be successful, and we had the report that the fine needle aspiration (FNA) appeared to have many macrophages, the decision at that time was made to do a BAL of the region and send it not only for cytology but cultures. She was then extubated and postprocedure chest x-ray is pending. FINDINGS: 1. Small amount of thick tenacious off-white secretions in the airways bilaterally. 2. Appearance of mild bronchiectasis. SPECIMEN: 1. Precepta brush done of the right mainstem. 2. Fine needle aspirate of the right upper lobe lesion, sent to cytology. 3. BAL of the right upper lobe nodule, sent to cytology as well as for routine, fungal, and AFB cultures. [facility]
== END 2019-07-18 10:34 | disposition home or self-care (01) ==
LOC: M SDC 05:43
PROVIDERS: ATTEND Internal Medicine Pulmonary Disease
DX: R91.1 Solitary pulmonary nodule (principal); J44.1 Chronic obstructive pulmonary disease with (acute) exacerbation; J43.2 Centrilobular emphysema; R06.00 Dyspnea, unspecified; Z86.73 Personal history of transient ischemic attack (TIA), and cerebral infarction without residual deficits; Z87.891 Personal history of nicotine dependence; Z79.899 Other long term (current) drug therapy
CPT/HCPCS: 31623; 31624; 31627; 31629; 71045; 76000; 87070; 87077; 87102; 87116; 87184; 87205; 87206; 88108; 88173; 88313; J1100; J2250; J2370; J2405; J3010

== ENCOUNTER → 2019-08-07 | Outpatient (CLI) | payer OTHER ==
--- NOTE | 2019-08-07 18:08 | REP ---
PET/CT: History: Diagnosing solitary pulmonary nodule. Comparisons: Chest CT study July 12, 2019 TECHNIQUE: 49 minutes following the intravenous injection of a 8.93 mCi dose of F-18 FDG, three-dimensional PET scintigraphy is acquired from the skull base to the proximal thighs. Triplanar noncontrast CT scanning is acquired through the same anatomic range for attenuation correction, and image registration with scan parameters optimized to minimize radiation exposure to the patient. PET scintigraphy and CT datasets were fused and displayed on a workstation with multiplanar and projection display capability. PET/CT Findings: Head and neck soft tissues are unremarkable. There is some normal variant skeletal muscle uptake. In the abdomen and pelvis, normal hepatic, splenic, gastrointestinal, and genitourinary FDG accumulation is seen. No abnormal abdominal or pelvic hypermetabolic uptake is appreciated. In the chest there is borderline increased uptake in a brand new nodule in the left apex anteromedially. This was not present on CT study from July 12, 2019. It measures 9 mm in greatest diameter. Maximum standard uptake value is 2.22, not quite hypermetabolic. The previously noted nodule in the left upper lobe which was felt to have been new in June 2019 is less prominent and does not show increased uptake. The spiculated nodule in the right upper lobe shows visible but non hypermetabolic uptake. Maximum standard uptake value is 1.27. The ground-glass opacity in the superior segment left lower lobe shows maximum standard uptake value 0.92. The pleural based nodule in the right lower lobe shows maximum standard uptake value 1.17. No abnormal hypermetabolic uptake is seen elsewhere in the chest. No hilar or mediastinal hypermetabolic uptake is seen. Impression: The spiculated nodule in the right apex is not hypermetabolic. Maximum SUV 1.27. There is a brand new nodular density in the left apex with maximum standard uptake value 2.22. Previously noted left apical nodule is regressed. These waxing and waning changes suggest inflammatory etiology. Follow-up is advised. Electronically Signed by Rodrigo Garcia MD 08/07/2019 07:07 P
== END ==
LOC: M PLARAD 09:19
PROVIDERS: ATTEND Internal Medicine Pulmonary Disease
DX: R91.1 Solitary pulmonary nodule (principal)
CPT/HCPCS: 78815; A9552

== ENCOUNTER → 2019-12-10 | Outpatient (CLI) | payer OTHER ==
--- NOTE | 2019-12-11 06:05 | REP ---
Clinical: Occlusion/stenosis. Technique: Bernard scale and color Doppler evaluation using linear high frequency transducer. Comparison: 12/05/2018 Findings: Two-dimensional bernard scale and color images demonstrate occluded left common carotid artery and occluded left stented internal carotid artery along with reversal of flow through the left vertebral artery. Right side demonstrates moderate intimal thickening and scattered partially calcified atheromatous plaquing through the common carotid artery/carotid bulb and proximal internal carotid artery with normal flow direction through the right vertebral artery. RIGHT (cm/s) LEFT (cm/s) ICA peak systolic velocity 95.7 occluded ICA diastolic velocity 29.4 occluded ECA peak systolic velocity 131.7 43.1 CCA peak systolic velocity 94.7 occluded ICA/CCA ratio 1.0 N/A Impression: 1. Occlusion of the left carotid/internal carotid artery with reversal of flow noted through the left vertebral artery. 2. Mild/moderate atherosclerotic changes through the right carotid artery with narrowing in the less than 50% range. 3. Findings are relatively similar to prior examination. Electronically Signed by Maurice Antunez MD 12/11/2019 05:56 A
== END ==
LOC: M RAD 08:36
PROVIDERS: ATTEND Physician Assistant
DX: I65.23 Occlusion and stenosis of bilateral carotid arteries (principal)

== ENCOUNTER → 2019-12-10 | Outpatient (CLI) | payer OTHER ==
--- NOTE | 2019-12-11 07:35 | REP ---
Clinical: Follow up abnormal lung findings. Comparison: 07/12/2019. Findings: Chronic advanced COPD/emphysematous changes with scattered scarring and bronchiectasis again noted. In comparison with prior examinations, multiple nodules are noted which have a waxing/waning course suggesting underlying infectious/inflammatory process. While a few nodules demonstrate spiculated margins and have either resolved or remain stable, a new left anteroapical nodule is now identified which measures 9 mm and a new left upper lobe nodule is now identified which measures approximately 13 mm. No consolidation or effusion. No pneumothorax. Mild adenopathy remains stable. Further evaluation of the mediastinum demonstrates atherosclerotic changes to the thoracic aorta and coronary arteries without aortic aneurysm or cardiomegaly. No pericardial effusion. Limited upper abdomen demonstrates normal bilateral adrenal glands. Skeletal structures without acute osseous abnormality. Impression: Waxing and waning course of scattered bilateral pulmonary nodules suggest an underlying infectious/inflammatory process. Electronically Signed by Maurice Antunez MD 12/11/2019 07:27 A
== END ==
LOC: M RAD 08:41
PROVIDERS: ATTEND Internal Medicine Pulmonary Disease
DX: R91.8 Other nonspecific abnormal finding of lung field (principal)

== ENCOUNTER → 2020-02-27 | Outpatient (CLI) | payer OTHER ==
[~2020-02-27] MED LIST changes: +ALPR2TAB3 PO; +CETI5TAB2 PO; +CLONI1TA PO
--- NOTE | 2020-02-28 04:14 | REP ---
REASON: History of lung carcinoma. Prior exams were reviewed, the latest 12/10/2019. The lack of intravenous contrast decreases the sensitivity of the exam. The mediastinum and pulmonary sayda are unchanged. The imaged upper abdomen and imaged osseous structures are unchanged. Evaluation of the lung perales shows multiple pulmonary nodules, which have remained stable or have gotten smaller. Once again, there is lung field hyperexpansion and emphysematous change, status quo. In the superior segment of the left lower lobe, there is a ground-glass opacity, which is stable. IMPRESSION: No significant change. Once again, waxing and waning scattered nodules are noted, status quo. Electronically Signed by Ismael Dailey DO 02/28/2020 04:33 P
== END ==
LOC: M RAD 13:18
PROVIDERS: ATTEND Internal Medicine Pulmonary Disease
DX: R91.8 Other nonspecific abnormal finding of lung field (principal)

== ENCOUNTER → 2020-03-27 | Outpatient (CLI) | payer OTHER ==
--- NOTE | 2020-05-19 08:42 | REP ---
BILATERAL LOWER EXTREMITY DUPLEX DOPPLER ARTERIAL ULTRASOUND: HISTORY: Bilateral leg pain. FINDINGS: Real time ultrasound evaluation and duplex Doppler interrogation of bilateral lower extremity arterial systems is performed. YOSSI right is 0.68 and left is 0.77. There is a large amount of plaquing seen in the right external iliac and common femoral arteries as well as left common femoral artery. The common iliac arteries are not seen due to overlying bowel gas. Monophasic wave forms are seen throughout the right lower extremity with triphasic and biphasic wave forms throughout the left lower extremity. There is no duplex Doppler sonographic evidence of focal stenosis of bilateral lower extremity systems. VELOCITY CHART RIGHT (cm/s) LEFT (cm/s) Common femoral artery 66.2 102 Profunda 40.1 53.2 Proximal SFA 58.8 97.6 Mid-SFA 59.8 72.7 Distal-SFA 40.8 75.4 Popliteal 32.8 38.5 Proximal JAMES 77.5 30.8 Tibioperoneal trunk 35.6 37.1 Proximal [employer] 22.6 28.6 Distal [employer]IC 20.7 16.5 Distal JAMES 7.5 21.7 MTDD
== END ==
LOC: M RAD 10:06
PROVIDERS: ATTEND Physician Assistant
DX: I70.213 Atherosclerosis of native arteries of extremities with intermittent claudication, bilateral legs (principal)

== ENCOUNTER → 2020-04-14 | Outpatient (CLI) | payer OTHER ==
[2020-04-14 13:00] LABS: HEMATOCRIT 43.6 % (36.0-47.0); HEMOGLOBIN 14.5 g/dl (12.0-15.5); MEAN CORPUSCULAR HGB CONC 33.3 g/dl (32.0-36.5); MEAN CORPUSCULAR VOLUME 102.1 fl (80.0-96.0); PLATELET COUNT, AUTOMATED 264 10^3/uL (150-450); RED BLOOD COUNT 4.27 10^6/uL (4.00-5.40); WHITE BLOOD COUNT 6.2 10^3/uL (4.0-10.0)
[2020-04-14 13:25] LABS: BLOOD UREA NITROGEN 10 MG/DL (7-18); CALCIUM LEVEL 9.5 MG/DL (8.8-10.2); CARBON DIOXIDE LEVEL 32 MEQ/L (21-32); CHLORIDE LEVEL 105 MEQ/L (98-107); CREATININE FOR GFR 0.77 MG/DL (0.55-1.30); GLOMERULAR FILTRATION RATE > 60.0 (>45); GLUCOSE, FASTING 86 MG/DL (70-100); POTASSIUM SERUM 5.3 MEQ/L (3.5-5.1); SODIUM LEVEL 138 MEQ/L (136-145)
== END ==
LOC: M LAB 09:48
PROVIDERS: ATTEND Physician Assistant
DX: I70.213 Atherosclerosis of native arteries of extremities with intermittent claudication, bilateral legs (principal); I65.23 Occlusion and stenosis of bilateral carotid arteries

== ENCOUNTER → 2020-04-16 | Outpatient (CLI) | payer OTHER ==
[~2020-04-16] MED LIST changes: +ISOVUE-300 61% 50ML VIAL As Ordered ONE; +LIDOCAINE 1% MDV 20ML VIAL As Ordered ONE; +MIDAZOLAM INJ 2MG/2ML VIAL (J2250 PER 1MG) As Ordered ONE; +NORCO, ANEXSIA 5/325MG TABLET (HYDROcodone/ACETAMINOPHEN) As Ordered ONE; +NORCO, ANEXSIA 5/325MG TABLET (HYDROcodone/ACETAMINOPHEN) PO ONE; +fentaNYL 100 MCG/2 ML INJECTION (J3010) As Ordered ONE
--- NOTE | 2020-04-16 11:31 | ROOPDOC ---
[facility] Report Of Operation Report of Operation DATE OF PROCEDURE: 04/16/20 PREPROCEDURE DIAGNOSES: Atherosclerosis of the [place] arteries with lifestyle limiting claudication POSTPROCEDURE DIAGNOSES: Same PROCEDURE: 1. Ultrasound-guided access bilateral common femoral arteries 2. Aortoiliofemoral arteriogram with oblique views of both iliac vessels and right lower extremity runoff 3. Predilation common and external iliac arteries was 6 x 100 [place] balloon's 4. Stenting right common iliac artery with 7 x 27 and 7 x 57 express balloon expandable stent, and extending this onto the external iliac artery with a 6 x 57 express balloon expandable stent. 5. Stenting left common iliac artery with 7 x 57 express balloon expandable stent and extending this onto the external iliac artery with a 6 x 57 express balloon expandable stent. 6. Angioplasty left external iliac artery distal to the stent was 6 x 100 [place] balloon 7. Completion arteriograms 8. Mynx closure bilateral common femoral artery SURGEON: Solomon Nova MD ANESTHESIA: Local anesthesia 14 mL lidocaine. Moderate intravenous conscious sedation was supervised by Dr. Nova. The patient was independently monitored by registered nurse assigned to the Department of radiology using automated blood pressure, EKG, and pulse oximetry. The detailed sedation record is permanently stored in the hospital information system. The following is a brief sedation record: Start time 09:51, stop time 10:47, Versed 1.5 mg IV, fentanyl 75 g IV, heparin 3000 units IV. CONTRAST: 50 mL Isovue-300 INDICATION FOR PROCEDURE: This is a very pleasant 59-year-old patient with lifestyle limiting claudication due to atherosclerosis in the [place] arteries. Risks benefits and alternatives to an arteriogram and potential intervention were explained to the patient and she was agreeable to proceed. Informed consent was obtained. INTERPRETATION: 1. The distal aorta is heavily calcified and ectatic but patent. Throughout the bilateral common iliac and external iliac arteries, there is diffuse calcium and stenosis ranging from 30% up to 90% in focal areas. The hypogastric arteries are heavily calcified but patent. The bilateral common femoral arteries are very diminutive in size and appear to have some posterior plaque stenosis, but it is difficult to ascertain how much stenosis due to the small size of the vessels. 2. The right lower extremity common femoral runs off into widely patent profunda and superficial femoral artery, both diminutive in size but patent, with rapid flow through the patent popliteal artery into three-vessel tibial runoff. The best and fastest runoff is through the posterior tibial artery, the peroneal runs off to the ankle, and the dorsal pedis fills late from a patent anterior t ibial artery that has more sluggish flow within the posterior tibial artery. All 3 vessels are very diminutive in size. 3. After pre-dilating the iliac vessels and then placing balloon-expandable stents were placed through the left and right external iliac to common iliac origins, the patient had widely patent inflow through the iliac system with no significant residual stenosis. Distal to the stent on the left external iliac artery there was some mild stenosis and we noted improvement after a quick angioplasty with the 6 x 100 [place] balloon. Following all interventions, there was no extravasation embolization or dissections noted. No significant residual stenosis noted. We did however note that the left common femoral artery was almost clearly obstructed by the 6 [place] sheath, and may have more par stairwell plaque than we initially appreciated. REPORT OF OPERATION: The patient was brought to the angiographic suite in stable condition. Her bilateral groins were prepped and draped in a sterile fashion. A timeout was performed. Sedation was administered without complication. Local anesthesia was administered to the skin and subcutaneous tissue over the left common femoral artery and the artery was entered with a microneedle under ultrasound guidance. A wire was passed through this access under fluoroscopic guidance and the needle was removed and a 4 [place] sheath was placed and flushed with saline. A Glidewire and flushing catheter were advanced in the distal aorta and aortoiliofemoral arteriograms were performed. Please see interpretation above. We also took oblique images of the iliac vessels. We then went up and over the bifurcation with a Glidewire and the catheter. It was difficult to do this due to heavy stenosis in plaque in the right common and external iliac artery. We could not advance the catheter past the external iliac artery. We then performed arteriograms with runoff of the right lower extremity. Please see interpretation above. We exchange the sheath over the wire for 6 [place] sheath and flushed the sheath was saline. We then gained access in the right common femoral artery in the exact same fashion with a 4 [place] sheath. We flushed sheath was saline. We then placed a Glidewire through this access into the aorta under fluoroscopic guidance exchange the sheath for 6 [place] sheath which was flushed with saline. Once we had bilateral iliac access, we first predilated the vessels was 6 x 100 [place] balloon's. Following this, we placed 6 x 57 express stents in the mid external iliac artery to the distal common iliac artery. Completion imaging showed the stents were in good position with no extravasation. We then extended these proximally with 7 x 6 57 express stents and these were deployed in the common iliac arteries bilaterally to the origin on the left and just distal to the origin on the right. After placing the stents with a 1 cm overlap, completion imaging showed a were in good position with no extravasation. We then left the balloon on the left and on the right placed a 7 x 27 express stent at the origin of the vessel with a 1 cm overlap on the existing stent. The stent was deployed while protecting the left side with the 7 x 57 balloon, and completion imaging revealed the stents were all in good position at the origin of the common iliac artery extending to the mid external iliac artery with excellent rapid flow through all of the stents and no residual stenosis noted. We then expanded to 6 x 100 [place] balloon in the left external iliac artery to expand this just distal to the stent. Following this there was widely patent flow but still some residual stenosis noted as the sheath was taking up the majority of the common femoral artery. I suspect the patient has more left posterior wall plaque than we initially appreciated on imaging. Nevertheless, both vessels ran off well through the SFA and profunda. We then deployed Mynx closure devices in first the left than the right common femoral arteries with good hemostasis and pressure was held at each groin for 5 minutes sterile dressings were applied. This concluded the procedure. The patient tolerated the procedure and the sedation well. ESTIMATED BLOOD LOSS: Approximately 5 mL. COMPLICATIONS: None. PLAN: We will see the patient back in a week to check her access sites and see how she is doing. No strenuous exercise or lifting greater than 5 pounds for 72 hours. Okay to ambulate and go up and down stairs. Our plan will be to have the patient continue her Plavix and to take this for uninterrupted for at least 60 days. We appreciate the opportunity to participate in the care of this patient. SOLOMON NOVA MD Apr 16, 2020 11:31
[2020-04-16 14:15] VITALS: BP 193/83
== END ==
LOC: M IRPRO 08:12
PROVIDERS: ATTEND Surgery Vascular Surgery
DX: I70.211 Atherosclerosis of native arteries of extremities with intermittent claudication, right leg (principal); I10 Essential (primary) hypertension; E78.00 Pure hypercholesterolemia, unspecified; I51.9 Heart disease, unspecified; J44.9 Chronic obstructive pulmonary disease, unspecified; I65.23 Occlusion and stenosis of bilateral carotid arteries; F32.9 Major depressive disorder, single episode, unspecified; F41.9 Anxiety disorder, unspecified; Z87.891 Personal history of nicotine dependence; Z88.1 Allergy status to other antibiotic agents; Z88.8 Allergy status to other drugs, medicaments and biological substances; Z79.899 Other long term (current) drug therapy; Z79.01 Long term (current) use of anticoagulants; Z79.82 Long term (current) use of aspirin
CPT/HCPCS: 37221; 75625; 75716; 99152; 99153; C1725; C1760; C1769; C1876; C1887; C1894; J1644; J2250; J3010; Q9967

== ENCOUNTER → 2020-05-27 | Outpatient (CLI) | payer OTHER ==
[~2020-05-27] MED LIST changes: -ISOVUE-300 61% 50ML VIAL As Ordered ONE; -LIDOCAINE 1% MDV 20ML VIAL As Ordered ONE; -MIDAZOLAM INJ 2MG/2ML VIAL (J2250 PER 1MG) As Ordered ONE; -NORCO, ANEXSIA 5/325MG TABLET (HYDROcodone/ACETAMINOPHEN) As Ordered ONE; -NORCO, ANEXSIA 5/325MG TABLET (HYDROcodone/ACETAMINOPHEN) PO ONE; -fentaNYL 100 MCG/2 ML INJECTION (J3010) As Ordered ONE
--- NOTE | 2020-06-02 12:40 | REP ---
CAROTID ULTRASOUND: 05/27/20 HISTORY: Occlusion, stenosis. Real-time ultrasound evaluation and duplex Doppler interrogation of the extra craniocaudal vasculature is performed. Moderate scattered partially calcified plaque is seen throughout the right common carotid artery, carotid bulb and internal carotid artery. There are normal flow velocities with no evidence of hemodynamically significant stenosis of the right internal carotid artery. There is normal direction of flow in the right vertebral artery. There is occlusion of the left common carotid and internal carotid arteries. Left external carotid artery is patent. There is normal direction of flow in the left vertebral artery. RIGHT LEFT Peak systolic velocity ICA 104.7 cm/s Occluded End diastolic velocity ICA 37.2 Occluded Peak systolic velocity CCA 75.2 Occluded Peak systolic velocity ECA 171.5 21.2 ICA/CCA ratio 1.39 - IMPRESSION: 1. Moderate partially calcified plaquing and narrowing right internal carotid artery with luminal narrowing less than 50% and no evidence of hemodynamically significant stenosis. 2. 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 MTDD
--- NOTE | 2020-06-02 12:42 | REP ---
BILATERAL LOWER EXTREMITY DUPLEX DOPPLER ARTERIAL ULTRASOUND: 05/27/20 HISTORY: Status post bilateral common iliac and external iliac stents and angioplasty. Real-time ultrasound evaluation and duplex Doppler interrogation of the bilateral lower extremity arterial systems is performed. Note is made of patent bilateral common iliac and external iliac artery stents. YOSSI right is 0.8 and left 1.1. Diffuse triphasic and biphasic waveforms are seen throughout the bilateral lower extremity arterial structures. Severe plaquing and narrowing is noted in the common femoral arteries bilaterally, with approximately 5:1 stenosis on the right. Since the prior exam and the recent stent placement, there is improve flow in the right lower extremity. Peak systolic velocity of the distal abdominal aorta is 60.6 cm/s. RIGHT Peak Systolic Velocity LEFT Peak Systolic Velocity Common iliac artery 88.3 cm/s 144.6 cm/s External iliac artery 133 132.7 Common Femoral artery 461.1 183.2 Profunda 77 151 Proximal SFA 62.7 112.1 Mid SFA 64.7 100.8 SFA 90.5 90.8 Popliteal 40.3 57.6 Proximal ETA 35.5 56.3 Tibia Peroneal trunk 47.2 38.3 Proximal NEGATIVE CHECKER 41.8 51.1 Distal NEGATIVE CHECKER 35.2 41.8 Distal JAMES 15.8 35.2 MTDD
== END ==
LOC: M RAD 10:12
PROVIDERS: ATTEND Physician Assistant
DX: I70.213 Atherosclerosis of native arteries of extremities with intermittent claudication, bilateral legs (principal); I65.23 Occlusion and stenosis of bilateral carotid arteries

== ENCOUNTER → 2020-07-03 | Outpatient (REF) | payer OTHER ==
[2020-07-03 16:10] LABS: BASO # 0.1 10^3/uL (0.0-0.2); BASO % 1.5 % (0.0-1.0); EOS % 0.7 % (0.0-3.0); HEMATOCRIT 46.5 % (36.0-47.0); HEMOGLOBIN 14.9 g/dl (12.0-15.5); LYMPH # 2.6 10^3/uL (1.5-5.0); LYMPH % 42.4 % (24.0-44.0); MEAN CORPUSCULAR HEMOGLOBIN 32.1 pg (27.0-33.0); MEAN CORPUSCULAR VOLUME 100.2 fl (80.0-96.0); MONO # 0.4 10^3/uL (0.0-0.8); MONO % 6.8 % (0.0-5.0); NEUTROPHILS # 2.9 10^3/uL (1.5-8.5); NEUTROPHILS % 48.3 % (36.0-66.0); PLATELET COUNT, AUTOMATED 261 10^3/uL (150-450); RED BLOOD COUNT 4.64 10^6/uL (4.00-5.40)
[2020-07-03 16:55] LABS: ALT/SGPT 10 U/L (12-78); BILIRUBIN,TOTAL 0.5 MG/DL (0.2-1.0); BLOOD UREA NITROGEN 7 MG/DL (7-18); CALCIUM LEVEL 9.6 MG/DL (8.8-10.2); CARBON DIOXIDE LEVEL 30 MEQ/L (21-32); CHLORIDE LEVEL 100 MEQ/L (98-107); CHOLESTEROL LEVEL 144 MG/DL (<200); CREATININE FOR GFR 0.83 MG/DL (0.55-1.30); FREE T4 0.97 NG/DL (0.76-1.46); GLOMERULAR FILTRATION RATE > 60.0 (>45); GLUCOSE, FASTING 89 MG/DL (70-100); HDL CHOLESTEROL 77 MG/DL (>40); LDL CHOLESTEROL 46 MG/DL (<100); NON-HDL-C 67 MG/DL; POTASSIUM SERUM 5.2 MEQ/L (3.5-5.1); SODIUM LEVEL 134 MEQ/L (136-145); THYROID STIMULATING HORMONE 0.423 uIU/ML (0.358-3.740); TOTAL PROTEIN 7.3 GM/DL (6.4-8.2); TRIGLYCERIDES LEVEL 106 MG/DL (<150)
[2020-07-03 16:58] LABS: TOTAL 25(OH) VITAMIN D 20.8 NG/ML (30.0-100.0)
[2020-07-03 16:59] LABS: PTH INTACT 59.1 PG/ML (18.5-88.0); VITAMIN B12 LEVEL 442 PG/ML (247-911)
== END ==
LOC: M SFHCPLAZ 13:43
PROVIDERS: ATTEND Family Medicine
DX: I10 Essential (primary) hypertension (principal); G89.4 Chronic pain syndrome; E78.2 Mixed hyperlipidemia; F33.9 Major depressive disorder, recurrent, unspecified

== ENCOUNTER 2020-08-23 18:22 | Inpatient (IN) | payer OTHER ==
[~2020-08-23] VITALS: Ht 162.6 cm; Wt 53.6 kg
[2020-08-23] MEDS ORDERED: ALPRAZolam 0.5 MG TAB PO ONE (18:45)
[2020-08-23] MEDS ORDERED: HYDR-3713 PO (18:46)
[2020-08-23] MEDS ORDERED: ALPR0.5T3 PO (18:46)
[2020-08-23 19:04] LABS: HEMATOCRIT 39.5 % (36.0-47.0); HEMOGLOBIN 14.3 g/dl (12.0-15.5); MEAN CORPUSCULAR HEMOGLOBIN 33.6 pg (27.0-33.0); MEAN CORPUSCULAR HGB CONC 36.2 g/dl (32.0-36.5); MEAN CORPUSCULAR VOLUME 92.9 fl (80.0-96.0); PLATELET COUNT, AUTOMATED 265 10^3/uL (150-450); RED BLOOD COUNT 4.25 10^6/uL (4.00-5.40); WHITE BLOOD COUNT 7.2 10^3/uL (4.0-10.0)
--- NOTE | 2020-08-23 19:26 | REP ---
INDICATION: anxiety COMPARISON: 07/18/2019 TECHNIQUE: Portable AP view of the chest FINDINGS: The mediastinum and cardiac silhouette are stable and within normal limits for portable technique. The lung perales demonstrate chronic changes and emphysematous disease without acute consolidation, effusion, or pneumothorax. Skeletal structures are intact. IMPRESSION: No acute cardiopulmonary process appreciated. <Electronically signed by Maurice Antunez > 08/23/20 [id number]
[2020-08-23] MEDS ORDERED: ONDANSETRON 4 MG ORAL DISINTEGRATING TAB PO ONE (19:45)
[2020-08-23 19:46] LABS: BLOOD UREA NITROGEN 12 MG/DL (7-18); CALCIUM LEVEL 8.4 MG/DL (8.8-10.2); CARBON DIOXIDE LEVEL 29 MEQ/L (21-32); CHLORIDE LEVEL 75 MEQ/L (98-107); CK-MB VALUE MASS 2.6 NG/ML (<3.6); CPK CREATINE PHOSPHOKINASE 121 U/L (26-192); CREATININE FOR GFR 0.64 MG/DL (0.55-1.30); GLOMERULAR FILTRATION RATE > 60.0 (>45); GLUCOSE, FASTING 96 MG/DL (70-100); MB/CK RELATIVE INDEX 2.15 (< OR =4); POTASSIUM SERUM 2.6 MEQ/L (3.5-5.1); SODIUM LEVEL 116 MEQ/L (136-145); TROPONIN I < 0.02 NG/ML (< 0.10)
[2020-08-23] MEDS ORDERED: NS 1,000 ML IV SCH (19:48)
[2020-08-23] MEDS ORDERED: ASPIRIN 81 MG CHEW TABLET PO ONE (20:00)
[2020-08-23] MEDS ORDERED: KCL 10MEQ/100ML SWI (KRUN) 10 MEQ in IV 1 EA IV ONE (20:00)
[2020-08-23] MEDS ORDERED: POTASSIUM CHLORIDE 10 MEQ SR TABLET PO ONE (20:00)
[2020-08-23 20:07] LABS: LIPASE 81 U/L (73-393)
[2020-08-23] MEDS ORDERED: POTA1TAB14 PO (20:25)
[2020-08-23] MEDS ORDERED: SENN-80 PO (20:25)
[2020-08-23] MEDS ORDERED: HYDR25TAB PO (20:25)
[2020-08-23] MEDS ORDERED: ATOR80TA59 PO (20:25)
[2020-08-23 20:50] LABS: ETHYL ALCOHOL (ETHANOL) < 0.003 % (0.000-0.010)
[2020-08-23 21:26] LABS: RSV AMPLIFICATION NEGATIVE (NEGATIVE)
[2020-08-23 21:46] LABS: OSMOLALITY SERUM 237 MOSM/KG (280-301)
[2020-08-23] MEDS ORDERED: NORCO, ANEXSIA 5/325MG TABLET (HYDROcodone/ACETAMINOPHEN) PO ONE (22:00)
[2020-08-23 22:03] LABS: INR 0.92; PROTHROMBIN TIME 12.5 SECONDS (12.5-14.3)
[2020-08-23 22:06] LABS: FREE T4 1.39 NG/DL (0.76-1.46)
[2020-08-23 23:23] LABS: BLOOD UREA NITROGEN 10 MG/DL (7-18); CALCIUM LEVEL 8.5 MG/DL (8.8-10.2); CARBON DIOXIDE LEVEL 30 MEQ/L (21-32); CHLORIDE LEVEL 80 MEQ/L (98-107); CREATININE FOR GFR 0.63 MG/DL (0.55-1.30); GLOMERULAR FILTRATION RATE > 60.0 (>45); GLUCOSE, FASTING 99 MG/DL (70-100); POTASSIUM SERUM 3.7 MEQ/L (3.5-5.1); SODIUM LEVEL 117 MEQ/L (136-145)
[2020-08-23 23:46] LABS: AMPHETAMINES LEVEL URINE NEGATIVE (NEGATIVE); BARBITURATES URINE NEGATIVE (NEGATIVE); BENZODIAZEPINES URINE POSITIVE (NEGATIVE); CANNABINOIDS URINE NEGATIVE (NEGATIVE); COCAINE METABOLITE URINE NEGATIVE (NEGATIVE); METHADONE URINE NEGATIVE (NEGATIVE); OPIATES URINE POSITIVE (NEGATIVE); PHENCYCLIDINE URINE NEGATIVE (NEGATIVE); SODIUM,RANDOM URINE 42 MEQ/L
--- NOTE | 2020-08-23 23:51 | HPEPDOC ---
[facility] Medical History & Physical Date of Admission Aug 24, 2020 Date of Service: Aug 24, 2020 History and Physical CHIEF COMPLAINT: Shakes HISTORY OF PRESENT ILLNESS: 60 yo F hx of emphysema, HTN, stroke (apr 2019) with no residual deficits, hx of back fracture in with resultant chronic pain presents due to complaints of worsening body tremors since this AM. As per patient she has been on hydrocodone 7.5 mg for pain for almost a year, taking 1- 2 tabs per day. I n Jun, her doctor lowered her dose to 0.5 mg/day in Jun. Since then she has been having whole body shakes, which have acutely worsened today. Denies any confusion, headaches, LOC, pain anywhere. Patient given 1 dose of xanax in ED with improvement in her symptoms. In the ED, she was also incidentally found to have a low sodium of 116 and potassium of 2.6. She is without AMS, seizures, neurological deficits. Potassium supplementation given and NS running at 100 ml/hr. [place] 2 tabs given for back pain as well. Urine tox screen positive for opioids and benzodiazepines. PAST MEDICAL HISTORY: 1. Emphysema 2. HTN 3. Stroke (2018) 4. Hx of back Fracture PAST SURGICAL HISTORY: 1. Unilateral oophorectomy 2. Appendectomy 3. Left carotid stent placement 4. Aortic stent vs Fem bypass? SOCIAL HISTORY: Denies drug use or alcohol use. However patient now smokes down from 1 PPD for 45 years ALLERGIES: Penicillins, tetracyclines, cyclobenzaprine, oxycodone REVIEW OF SYSTEMS: Denies fevers, chills, nausea, vomiting, diarrhea, chest pain, SOB. Endorses chronic back pain HOME MEDICATIONS: Please see below. PHYSICAL EXAMINATION: Constitutional: In no acute distress. Laying comfortably HEENT: JOSLYN. EOMI Respiratory: Clear to auscultation bilaterally. No wheezing, rales, crackles Cardiovascular: Heart sounds 1 + 2 Normal with no added sounds, murmurs or regurgitation Back: Tender to palpation along mid thoracic spine and right lumbar muscles Abdomen: Soft and non-tender. BS + Extremities: No pitting edema Neurological: No gross FND LABORATORY DATA: See below. IMAGING: CXR WNL MICROBIOLOGY: Please see below. ASSESSMENT: 60 yo F hx of emphysema, HTN, stroke (apr 2019) with no residual deficits, hx of back fracture in with resultant chronic pain presents due to complaints of worsening body tremors since this am. As per patient, she has been having these symptoms since her PCP lowered her norco dose in Jun, but have acutely worsened this morning. Patient was found to have asymptomatic hyponatremia and hypokalemia in the ED. Will be admitted for management of electrolytes disturbances. #Asymptomatic Hyponatremia -116 on admission. Repeat 2 hours later 117 -Trending BMP q2h. Monitor I/Os -Workup: -Serum osmolality: 237 (L) -Urine osmolality: 249 (L) -Urine sodium: 42 -TSH: 2.1 (WNL) -Baseline cortisol: pending -AM cortisol: Pending -C/W NS maintenance rate -May continue with regular diet. Fluid restrict 800ml/ day -Correction Goal: 6-8 meQ/day. Next goal: 124 meq by 08/24 at 6pm -Telemetry monitoring #Hypokalemia -2.6 on admission. Repeat 2 hours later 3.7 -C/W home medication potassium 20 meq daily #Tremors -Likely 2/2 opioid withdrawal vs anxiety -C/W alprazolam 0.5 mg TID PRN as per home meds. Will continue with [place] q6h PRN for back pain #HTN -Currently normotensive. Continue with home medication losartan 100 mg daily #Emphysema -C/W home medication albuterol. No anticholinergics given as per rec meds, F/u outpatient #Hx of Stroke -C/W home medications ASA, plavix, statin 40 #Hx of back fracture with chronic pain -C/W home medications norco PRN, tizanidine PRN. Senokot for bowel regimen Diet: Regular Disposition: home DVT PPX: Lovenox [address] Rod Boyer MD Hospitalist Resident Vital Signs Vital Signs Date Time Temp Pulse Resp B/P (MAP) Pulse Ox O2 Delivery O2 Flow Rate FiO2 08/23/20 23:23 20 08/23/20 22:48 68 98 Room Air 08/23/20 22:45 116/65 (82) 08/23/20 18:38 96.7 Laboratory Data Labs 24H Laboratory Tests 2 08/23/20 18:57: Nucleated Red Blood Cells % (auto) 0.0, Anion Gap 12, Glomerular Filtration Rate > 60.0, Osmolality 237L, Calcium Level 8.4L, Total Creatine Kinase 121, Creatine Kinase MB 2.6, Creatine Kinase MB Relative Index 2.15, Troponin I < 0.02, Lipase 81, Thyroid Stimulating Hormone (TSH) 2.110, Free Thyroxine 1.39, Ethyl Alcohol Level < 0.003 08/23/20 20:32: Coronavirus (COVID-19)(PCR) NEGATIVE, Influenza Type A (RT-PCR) NEGATIVE, Influenza Type B (RT-PCR) NEGATIVE, Respiratory Syncytial Virus (PCR) NEGATIVE 08/23/20 21:43: Prothrombin Time 12.5, Prothromb Time International Ratio 0.92 08/23/20 22:45: Anion Gap 7L, Glomerular Filtration Rate > 60.0, Calcium Level 8.5L 08/23/20 22:56: Urine Color YELLOW, Urine Appearance CLEAR, Urine pH 7.0, Urine Specific [place] 1.006, Urine Protein NEGATIVE, Urine Glucose (UA) NEGATIVE, Urine Ketones TRACEH, Urine Blood NEGATIVE, Urine Nitrite NEGATIVE, Urine Bilirubin NEGATIVE, Urine Urobilinogen 0.2, Urine Leukocyte Esterase NEGATIVE, Urine WBC (Auto) 1, Urine RBC (Auto) 1, Urine Hyaline Casts (Auto) 0, Urine Bacteria (Auto) NEGATIVE, Urine Squamous Epithelial Cells 0, Urine Mucus (Auto) SMALL, Urine Sperm (Auto) , Urine Random Osmolality 249L, Urine Random Sodium 42, Urine Opiates Screen POSITIVEH, Urine Methadone Screen NEGATIVE, Urine Barbiturates Screen NEGATIVE, Urine Phencyclidine Screen NEGATIVE, Urine Amphetamines Screen NEGATIVE, Urine Benzodiazepines Screen POSITIVEH, Urine Cocaine Metabolite Screen NEGATIVE, Urine Cannabinoids Screen NEGATIVE CBC/BMP Laboratory Tests 08/23/20 18:57 08/23/20 22:45 Home Medications Scheduled Aspirin (Ecotrin) 81 Mg Tablet.dr, 81 MG PO DAILY Atorvastatin Calcium (Atorvastatin Calcium) 80 Mg Tablet, 40 MG PO QPM Clopidogrel Bisulfate (Plavix) 75 Mg Tablet, 75 MG PO DAILY Losartan Potassium (Losartan Potassium) 100 Mg Tablet, 100 MG PO DAILY Potassium Chloride (Potassium Chloride) 20 Meq Tablet.er, 20 MEQ PO DAILY Sennosides (Senna) 8.6 Mg Tablet, 17.2 MG PO DAILY Scheduled PRN Albuterol Sulfate (Ventolin Hfa) 18 Gm Hfa.aer.ad, 2 PUFF INH Q4-6HP PRN for wheezing Alprazolam (Alprazolam) 0.5 Mg Tablet, 0.5 MG PO TID PRN for ANXIETY Hydrocodone/Acetaminophen (Hydrocodone-Acetamin 5-325 mg) 1 Each Tablet, 1 TAB PO Q6H PRN for PAIN may take 2 tabs prn Tizanidine HCl (Tizanidine HCl) 4 Mg Capsule, 4 MG PO Q8HP PRN for MUSCLE SPASMS Allergies Coded Allergies: Penicillins (Verified Allergy, Unknown, 07/18/19) Tetracyclines (Verified Allergy, Unknown, 07/18/19) cyclobenzaprine (Verified Allergy, Unknown, 07/18/19) oxycodone (Verified Allergy, Unknown, 07/18/19) A-FIB/CHADSVASC A-FIB History Current/History of A-Fib/PAF?: No GME ATTESTATION GME ATTESTATION My faculty preceptor for this patient encounter was physically present during the encounter and was fully available. All aspects of the patient interview, examination, medical decision making process, and medical care plan development were reviewed and approved by the faculty preceptor. The faculty preceptor is aware and concurs with the plan as stated in the body of this note and will attest to such by his/her cosignature. ATTENDING NOTE I, Angeles Thomas, have independently examined this patient and performed my own physical exam, as well as reviewed the documentation and edited where necessary. I have discussed in detail with the resident / student the findings and plan of treatment as documented by the resident / student and edited their note. I agree with their findings and treatment plan and have edited their documentation. I will continue to follow the patient during this hospital stay. PATRICIA BOYER M.D.,PGY-2 Aug 23, 2020 23:51 LUIS THOMAS MD Aug 24, 2020 06:12
[2020-08-24] MEDS ORDERED: SODIUM CHLORIDE 3% 100 ML IV SCH (00:15)
[2020-08-24 00:28] VITALS: BP 128/73
[2020-08-24] MEDS ORDERED: tiZANidine 4 MG TAB PO PRN (01:00)
[2020-08-24] MEDS ORDERED: ALBUTEROL 90 MCG/ACT 8GM HFA INHALER INH PRN (01:00)
[2020-08-24 01:52] LABS: BLOOD UREA NITROGEN 11 MG/DL (7-18); CALCIUM LEVEL 8.2 MG/DL (8.8-10.2); CARBON DIOXIDE LEVEL 32 MEQ/L (21-32); CHLORIDE LEVEL 79 MEQ/L (98-107); CREATININE FOR GFR 0.69 MG/DL (0.55-1.30); GLOMERULAR FILTRATION RATE > 60.0 (>45); GLUCOSE, FASTING 95 MG/DL (70-100); POTASSIUM SERUM 3.5 MEQ/L (3.5-5.1); SODIUM LEVEL 117 MEQ/L (136-145)
[2020-08-24] MEDS: ATORVASTATIN 20 MG TAB PO SCH ×2 (02:15→17:44)
[2020-08-24 03:26] LABS: BLOOD UREA NITROGEN 13 MG/DL (7-18); CALCIUM LEVEL 7.6 MG/DL (8.8-10.2); CARBON DIOXIDE LEVEL 30 MEQ/L (21-32); CHLORIDE LEVEL 83 MEQ/L (98-107); CREATININE FOR GFR 0.75 MG/DL (0.55-1.30); GLOMERULAR FILTRATION RATE > 60.0 (>45); GLUCOSE, FASTING 108 MG/DL (70-100); POTASSIUM SERUM 3.4 MEQ/L (3.5-5.1); SODIUM LEVEL 120 MEQ/L (136-145)
[2020-08-24 04:00] VITALS: BP 120/66
[2020-08-24 05:38] LABS: BLOOD UREA NITROGEN 13 MG/DL (7-18); CALCIUM LEVEL 7.8 MG/DL (8.8-10.2); CARBON DIOXIDE LEVEL 29 MEQ/L (21-32); CHLORIDE LEVEL 87 MEQ/L (98-107); CREATININE FOR GFR 0.77 MG/DL (0.55-1.30); GLOMERULAR FILTRATION RATE > 60.0 (>45); GLUCOSE, FASTING 91 MG/DL (70-100); POTASSIUM SERUM 3.1 MEQ/L (3.5-5.1); SODIUM LEVEL 121 MEQ/L (136-145)
[2020-08-24] MEDS ORDERED: NS 1,000 ML IV SCH (06:45)
[2020-08-24 07:06] LABS: BASO % 0.6 % (0.0-1.0); EOS # 0.1 10^3/uL (0.0-0.5); EOS % 1.5 % (0.0-3.0); HEMATOCRIT 37.7 % (36.0-47.0); HEMOGLOBIN 13.6 g/dl (12.0-15.5); LYMPH # 1.6 10^3/uL (1.5-5.0); LYMPH % 30.5 % (24.0-44.0); MEAN CORPUSCULAR HEMOGLOBIN 33.7 pg (27.0-33.0); MEAN CORPUSCULAR HGB CONC 36.1 g/dl (32.0-36.5); MEAN CORPUSCULAR VOLUME 93.3 fl (80.0-96.0); MONO # 0.6 10^3/uL (0.0-0.8); MONO % 12.2 % (0.0-5.0); NEUTROPHILS # 2.9 10^3/uL (1.5-8.5); PLATELET COUNT, AUTOMATED 256 10^3/uL (150-450); RED BLOOD COUNT 4.04 10^6/uL (4.00-5.40); WHITE BLOOD COUNT 5.2 10^3/uL (4.0-10.0)
[2020-08-24 07:28] LABS: BLOOD UREA NITROGEN 13 MG/DL (7-18); CALCIUM LEVEL 8.3 MG/DL (8.8-10.2); CARBON DIOXIDE LEVEL 27 MEQ/L (21-32); CHLORIDE LEVEL 90 MEQ/L (98-107); CREATININE FOR GFR 0.61 MG/DL (0.55-1.30); GLOMERULAR FILTRATION RATE > 60.0 (>45); GLUCOSE, FASTING 76 MG/DL (70-100); POTASSIUM SERUM 3.6 MEQ/L (3.5-5.1); SODIUM LEVEL 123 MEQ/L (136-145)
[2020-08-24 08:00] VITALS: BP 114/61
[2020-08-24] MEDS ORDERED: POTASSIUM CHLORIDE 10 MEQ SR TABLET PO ONE (09:00)
[2020-08-24] MEDS: LOSARTAN 50MG TABLET PO SCH (09:00)
[2020-08-24] MEDS: ALPRAZolam 0.5 MG TAB PO PRN ×3 (09:26→21:30)
[2020-08-24] MEDS: NORCO, ANEXSIA 5/325MG TABLET (HYDROcodone/ACETAMINOPHEN) PO PRN ×3 (09:27→21:31)
[2020-08-24] MEDS: CLOPIDOGREL 75 MG TAB PO SCH (09:28)
[2020-08-24] MEDS: SENNA 8.6 MG TAB (SENOKOT) PO SCH (09:28)
[2020-08-24] MEDS: ASPIRIN 81 MG ENTERIC TAB PO SCH (09:28)
[2020-08-24] MEDS: ENOXAPARIN 40MG/0.4ML SYRINGE (J1650 PER 10MG) SC SCH (09:29)
[2020-08-24] MEDS: POTASSIUM CHLORIDE 10 MEQ SR TABLET PO SCH (10:52)
[2020-08-24 10:57] LABS: BLOOD UREA NITROGEN 15 MG/DL (7-18); CALCIUM LEVEL 8.4 MG/DL (8.8-10.2); CARBON DIOXIDE LEVEL 30 MEQ/L (21-32); CHLORIDE LEVEL 92 MEQ/L (98-107); GLOMERULAR FILTRATION RATE > 60.0 (>45); GLUCOSE, FASTING 66 MG/DL (70-100); POTASSIUM SERUM 3.9 MEQ/L (3.5-5.1); SODIUM LEVEL 127 MEQ/L (136-145)
--- NOTE | 2020-08-24 11:49 | IPNPDOC ---
Date Seen The patient was seen on 08/24/20. Progress Note SUBJECTIVE: Sodium improving to 127 from 116 on admission. No AMS, cortisol AM and cortisol stimulation test pending. IVFs at 50 cc/hr, Q4H BMP. Denies shortness of breath, n/v/d, fevers, lightheadedness, blurry vision, headache. OBJECTIVE: PHYSICAL EXAMINATION: VS: Please see below GENERAL: In no acute distress. Laying comfortably HEENT: JOSLYN. EOMI Respiratory: Clear to auscultation bilaterally. No wheezing, rales, crackles Cardiovascular: Heart sounds 1 + 2 Normal with no added sounds, murmurs or regurgitation Back: Tender to palpation along mid thoracic spine and right lumbar muscles Abdomen: thin abd, soft and non-tender. BS + Extremities: No pitting edema Neurological: CN 2-12 intact, no focal deficits LABORATORY DATA: See below. IMAGING: CXR WNL MICROBIOLOGY: Please see below. ASSESSMENT: 60 yo F hx of emphysema, HTN, stroke (apr 2019) with no residual deficits, hx of back fracture in with resultant chronic pain presents due to complaints of worsening body tremors since this am. As per patient, she has been having these symptoms since her PCP lowered her norco dose in Jun, but have acutely worsened this morning. Patient was found to have asymptomatic h yponatremia and hypokalemia in the ED. Will be admitted for management of electrolytes disturbances. PLAN: #Asymptomatic Hyponatremia r/o 2/2 to decreased Na intake, dehydration vs. glucocorticoid deficiency -127 this AM, decreased rate of NSS to 50 cc/hr -TSH wnl -Patient states she is on a very strict diet at home and uses no salt, restricts heavily. Will consult nutrition to do full assessment on patient, as she does need some salt in her diet. -F/u cortisol stimulation test, AM cortisol, Q4 H BMP -Close monitoring of I&O's -Telemetry monitoring #Hypokalemia- improved -Monitor daily labs #Tremors possibly 2/2 to anxiety -No s/s of opiate w/d -C/W alprazolam 0.5 mg TID PRN as per home meds. Will continue with [place] q6h PRN for back pain #HTN -BP stable -Currently normotensive. -C/w losartan 100 mg daily #Emphysema -Stable -CXR wnl -C/W home medication albuterol. #Hx of Stroke -No focal deficits -C/W home medications ASA, plavix, statin 40 #Hx of back fracture with chronic pain -Stable -C/W home medications norco PRN, tizanidine PRN. Senokot for bowel regimen #DVT Px: -Lovenox daily DISPOSITION: Hopeful for discharge to home in the next 24 hours if patient continues to correct and remains stable otherwise. VS, I&O, 24H, Fishbone Vital Signs/I&O Vital Signs Date Time Temp Pulse Resp B/P (MAP) Pulse Ox O2 Delivery O2 Flow Rate FiO2 08/24/20 09:27 18 96 Room Air 08/24/20 09:00 114/61 08/24/20 08:00 98.3 76 I&O- Last 24 Hours up to 6 AM 08/24/20 06:00 Intake Total 1555 ml Output Total 0 ml Balance 1555 ml Laboratory Data 24H LABS Laboratory Tests 2 08/23/20 18:57: Nucleated Red Blood Cells % (auto) 0.0, Anion Gap 12, Glomerular Filtration Rate > 60.0, Osmolality 237L, Calcium Level 8.4L, Total Creatine Kinase 121, Creatine Kinase MB 2.6, Creatine Kinase MB Relative Index 2.15, Troponin I < 0.02, Lipase 81, Thyroid Stimulating Hormone (TSH) 2.110, Free Thyroxine 1.39, Ethyl Alcohol Level < 0.003 08/23/20 20:32: Coronavirus (COVID-19)(PCR) NEGATIVE, Influenza Type A (RT-PCR) NEGATIVE, Influenza Type B (RT-PCR) NEGATIVE, Respiratory Syncytial Virus (PCR) NEGATIVE 08/23/20 21:43: Prothrombin Time 12.5, Prothromb Time International Ratio 0.92 08/23/20 22:45: Anion Gap 7L, Glomerular Filtration Rate > 60.0, Calcium Level 8.5L 08/23/20 22:56: Urine Color YELLOW, Urine Appearance CLEAR, Urine pH 7.0, Urine Specific [place] 1.006, Urine Protein NEGATIVE, Urine Glucose (UA) NEGATIVE, Urine Ketones TRACEH, Urine Blood NEGATIVE, Urine Nitrite NEGATIVE, Urine Bilirubin NEGATIVE, Urine Urobilinogen 0.2, Urine Leukocyte Esterase NEGATIVE, Urine WBC (Auto) 1, Urine RBC (Auto) 1, Urine Hyaline Casts (Auto) 0, Urine Bacteria (Auto) NEGATIVE, Urine Squamous Epithelial Cells 0, Urine Mucus (Auto) SMALL, Urine Sperm (Auto) , Urine Random Osmolality 249L, Urine Random Sodium 42, Urine Opiates Screen POSITIVEH, Urine Methadone Screen NEGATIVE, Urine Barbiturates Screen NEGATIVE, Urine Phencyclidine Screen NEGATIVE, Urine Amphetamines Screen NEGATIVE, Urine Benzodiazepines Screen POSITIVEH, Urine Cocaine Metabolite Screen NEGATIVE, Urine Cannabinoids Screen NEGATIVE 08/24/20 00:44: Anion Gap 6L, Glomerular Filtration Rate > 60.0, Calcium Level 8.2L 08/24/20 02:38: Anion Gap 7L, Glomerular Filtration Rate > 60.0, Calcium Level 7.6L 08/24/20 04:40: Anion Gap 5L, Glomerular Filtration Rate > 60.0, Calcium Level 7.8L 08/24/20 06:52: Immature Granulocyte % (Auto) 0.2, Neutrophils (%) (Auto) 55.0, Lymphocytes (%) (Auto) 30.5, Monocytes (%) (Auto) 12.2H, Eosinophils (%) (Auto) 1.5, Basophils (%) (Auto) 0.6, Neutrophils # (Auto) 2.9, Lymphocytes # (Auto) 1.6, Monocytes # (Auto) 0.6, Eosinophils # (Auto) 0.1, Basophils # (Auto) 0.0, Nucleated Red Blood Cells % (auto) 0.0, Anion Gap 6L, Glomerular Filtration Rate > 60.0, Calcium Level 8.3L 08/24/20 10:22: Anion Gap 5L, Glomerular Filtration Rate > 60.0, Calcium Level 8.4L CBC/BMP Laboratory Tests 08/23/20 18:57 08/23/20 22:45 08/24/20 00:44 08/24/20 02:38 08/24/20 04:40 08/24/20 06:52 08/24/20 10:22 Current Medications Current Medications Medications (Trade) Dose Ordered Sig/Sharonda Route PRN Reason Start Time Stop Time Status Last Admin Dose Admin Acetaminophen/ Hydrocodone Bitart ([place], Anexsia 5/325) 1 tab Q6H PRN PO PAIN 08/24/20 01:00 08/24/20 09:27 Albuterol Sulfate (Proventil, Ventolin Hfa) 2 puff Q4HP PRN INH wheezing 08/24/20 01:00 Alprazolam (Xanax) 0.5 mg TID PRN PO ANXIETY 08/24/20 01:00 08/24/20 09:26 Aspirin (Ecotrin) 81 mg DAILY PO 08/24/20 09:00 08/24/20 09:28 Atorvastatin Calcium (Lipitor) 40 mg DAILY@1800 PO 08/23/20 18:00 08/24/20 02:15 Clopidogrel Bisulfate (PLAVix) 75 mg DAILY PO 08/24/20 09:00 08/24/20 09:28 Enoxaparin Sodium (Lovenox) 40 mg DAILY SC 08/24/20 09:00 08/24/20 09:29 Home Med (Med Rec Complete!) ASDIRECTED XX 08/23/20 20:45 08/23/20 20:34 DC Losartan Potassium (Cozaar) 100 mg DAILY PO 08/24/20 09:00 Potassium Chloride (Micro-K Extencaps) 20 meq DAILY PO 08/24/20 09:00 08/24/20 10:52 Senna (Senokot) 1 tab DAILY PO 08/24/20 09:00 08/24/20 09:28 Sodium Chloride 100 ml @ 100 mls/hr Q1H IV 08/24/20 00:15 08/24/20 00:18 DC Sodium Chloride 1,000 ml @ 50 mls/hr Q20H IV 08/24/20 06:45 08/24/20 09:00 DC 08/24/20 06:31 Sodium Chloride 1,000 ml @ 100 mls/hr Q10H IV 08/23/20 19:48 08/24/20 00:28 DC 08/23/20 20:16 Tizanidine HCl (Zanaflex) 4 mg Q8HP PRN PO MUSCLE SPASMS 08/24/20 01:00 Allergies Coded Allergies: Penicillins (Verified Allergy, Unknown, 07/18/19) Tetracyclines (Verified Allergy, Unknown, 07/18/19) cyclobenzaprine (Verified Allergy, Unknown, 07/18/19) oxycodone (Verified Allergy, Unknown, 07/18/19) Michelle Gray MD Aug 24, 2020 11:49
[2020-08-24 12:00] VITALS: BP 136/64
[2020-08-24 15:40] LABS: BLOOD UREA NITROGEN 16 MG/DL (7-18); CALCIUM LEVEL 8.7 MG/DL (8.8-10.2); CARBON DIOXIDE LEVEL 30 MEQ/L (21-32); CHLORIDE LEVEL 98 MEQ/L (98-107); CREATININE FOR GFR 0.82 MG/DL (0.55-1.30); GLOMERULAR FILTRATION RATE > 60.0 (>45); GLUCOSE, FASTING 64 MG/DL (70-100); POTASSIUM SERUM 3.8 MEQ/L (3.5-5.1); SODIUM LEVEL 134 MEQ/L (136-145)
[2020-08-24 15:51] VITALS: BP 120/62
--- NOTE | 2020-08-24 16:34 | ECGEPIP ---
[facility] - ED Test Date: 2020-08-23 Pat Name: JOHNNA KRAFT Department: Room: [place] [address] Gender: Female Bulk Picker: CONNOR : [phone] Requested By: TERRY FERNANDEZ Order Number: [id number] Reading MD: Amarilys Morales Measurements Intervals [place] Rate: 71 P: 63 DE: 158 QRS: 92 QRSD: 97 T: -1 QT: 416 QTc: 452 Interpretive Statements SINUS RHYTHM BORDERLINE RIGHT AXIS DEVIATION MODERATE T-WAVE ABNORMALITY, CONSIDER ISCHEMIA, CLINICAL CORRELATION NEW 03/25/19 Electronically Signed on 08-24-2020 16:34:08 EST by Amarilys Morales
[2020-08-24] MEDS: NS 1,000 ML IV SCH (16:35)
[2020-08-24 19:31] LABS: BLOOD UREA NITROGEN 19 MG/DL (7-18); CALCIUM LEVEL 8.3 MG/DL (8.8-10.2); CARBON DIOXIDE LEVEL 30 MEQ/L (21-32); CHLORIDE LEVEL 102 MEQ/L (98-107); GLOMERULAR FILTRATION RATE > 60.0 (>45); GLUCOSE, FASTING 98 MG/DL (70-100); POTASSIUM SERUM 3.9 MEQ/L (3.5-5.1); SODIUM LEVEL 136 MEQ/L (136-145)
[2020-08-24 22:00] VITALS: BP 127/76
[2020-08-24 23:33] LABS: BLOOD UREA NITROGEN 19 MG/DL (7-18); CALCIUM LEVEL 8.2 MG/DL (8.8-10.2); CARBON DIOXIDE LEVEL 29 MEQ/L (21-32); CHLORIDE LEVEL 107 MEQ/L (98-107); CREATININE FOR GFR 0.78 MG/DL (0.55-1.30); GLOMERULAR FILTRATION RATE > 60.0 (>45); GLUCOSE, FASTING 98 MG/DL (70-100); POTASSIUM SERUM 4.2 MEQ/L (3.5-5.1); SODIUM LEVEL 139 MEQ/L (136-145)
[2020-08-25 03:48] LABS: BLOOD UREA NITROGEN 20 MG/DL (7-18); CALCIUM LEVEL 7.9 MG/DL (8.8-10.2); CARBON DIOXIDE LEVEL 30 MEQ/L (21-32); CHLORIDE LEVEL 110 MEQ/L (98-107); CREATININE FOR GFR 0.72 MG/DL (0.55-1.30); GLOMERULAR FILTRATION RATE > 60.0 (>45); GLUCOSE, FASTING 87 MG/DL (70-100); POTASSIUM SERUM 4.6 MEQ/L (3.5-5.1); SODIUM LEVEL 142 MEQ/L (136-145)
[2020-08-25 06:00] VITALS: BP 124/79
[2020-08-25 07:00] LABS: ALBUMIN 3.2 GM/DL (3.2-5.2); ALT/SGPT 20 U/L (12-78); BILIRUBIN,TOTAL 0.2 MG/DL (0.2-1.0); BLOOD UREA NITROGEN 20 MG/DL (7-18); CALCIUM LEVEL 7.8 MG/DL (8.8-10.2); CARBON DIOXIDE LEVEL 30 MEQ/L (21-32); CHLORIDE LEVEL 109 MEQ/L (98-107); CREATININE FOR GFR 0.64 MG/DL (0.55-1.30); GLOMERULAR FILTRATION RATE > 60.0 (>45); GLUCOSE, FASTING 92 MG/DL (70-100); POTASSIUM SERUM 4.3 MEQ/L (3.5-5.1); SODIUM LEVEL 141 MEQ/L (136-145); TOTAL PROTEIN 5.8 GM/DL (6.4-8.2)
[2020-08-25] MEDS: CLOPIDOGREL 75 MG TAB PO SCH (07:42)
[2020-08-25 07:43] VITALS: BP 126/77
[2020-08-25] MEDS: LOSARTAN 50MG TABLET PO SCH (07:43)
[2020-08-25] MEDS: POTASSIUM CHLORIDE 10 MEQ SR TABLET PO SCH (07:43)
[2020-08-25] MEDS: ALPRAZolam 0.5 MG TAB PO PRN (07:43)
[2020-08-25] MEDS: SENNA 8.6 MG TAB (SENOKOT) PO SCH (07:43)
[2020-08-25 07:44] VITALS: BP 126/77
[2020-08-25] MEDS: NORCO, ANEXSIA 5/325MG TABLET (HYDROcodone/ACETAMINOPHEN) PO PRN (07:44)
[2020-08-25] MEDS: ENOXAPARIN 40MG/0.4ML SYRINGE (J1650 PER 10MG) SC SCH (07:45)
[2020-08-25] MEDS: ASPIRIN 81 MG ENTERIC TAB PO SCH (07:45)
[2020-08-25] MEDS: NS 1,000 ML IV SCH (07:45)
[2020-08-25 10:50] LABS: CORTISOL BASELINE 45.2 UG/DL (4.3-22.4)
--- NOTE | 2020-08-25 17:20 | DS.PDOC ---
Discharge Summary General Date of Admission Aug 23, 2020 at 23:23 Date of Discharge 08/25/20 Attending Physician: Michelle Gray MD Discharge Summary HISTORY OF PRESENT ILLNESS: 60 yo F hx of emphysema, HTN, stroke (apr 2019) with no residual deficits, hx of back fracture in with resultant chronic pain presents due to complaints of worsening body tremors since this AM. As per patient she has been on hydrocodone 7.5 mg for pain for almost a year, taking 1-2 tabs per day. I n Jun, her doctor lowered her dose to 0.5 mg/day in Jun. Since then she has been having whole body shakes, which have acutely worsened today. Denies any confusion, headaches, LOC, pain anywhere. Patient given 1 dose of xanax in ED with improvement in her symptoms. In the ED, she was also incidentally found to have a low sodium of 116 and potassium of 2.6. She is without AMS, seizures, neurological deficits. Potassium supplementation given and NS running at 100 ml/hr. Moran 2 tabs given for back pain as well. Urine tox screen positive for opioids and benzodiazepines. Admitted for treatment of hypokalemia, possible benzodiazepine withdrawl. HOSPITAL COURSE: During her hospital stay, patient was kept on NSS, sodiums improved appropriately. She had no altered mental status, felt much improved by Day 2. Tremors resolved. TSH was wnl, serum and urine studies indicated more testing was necessary to rule out glucocorticoid deficiency. Serum cortisol was normal. By hospital day 2, her sodium was wnl. She denied chest pain, n/v/d, fevers, shortness of breath, tremors. She was advised to please follow up with PCP after discharge. I am recommend outpatient ACTH Stimulation test to further rule out glucocorticoid deficiency as cause of low sodium. She admitted to being very strict with her diet and uses NO salt at all at home. I am recommend being a bit more lenient with salt use vs. very strict. She is advised to discuss this in further detail with her PCP. PAST MEDICAL HISTORY: 1. Emphysema 2. HTN 3. Stroke (2018) 4. Hx of back Fracture PAST SURGICAL HISTORY: 1. Unilateral oophorectomy 2. Appendectomy 3. Left carotid stent placement 4. Aortic stent vs Fem bypass? SOCIAL HISTORY: Denies drug use or alcohol use. However patient now smokes down from 1 PPD for 45 years ALLERGIES: Please see below. DISCHARGE MEDICATIONS: Please see below. PHYSICAL EXAMINATION: VS: Please see below GENERAL: In no acute distress. Laying comfortably HEENT: JOSLYN. EOMI Respiratory: Clear to auscultation bilaterally. No wheezing, rales, crackles Cardiovascular: Heart sounds 1 + 2 Normal with no added sounds, murmurs or regurgitation Abdomen: thin abd, soft and non-tender. BS + Extremities: No pitting edema Neurological: CN 2-12 intact, no focal deficits LABORATORY DATA: See below. IMAGING: CXR WNL MICROBIOLOGY: Please see below. ASSESSMENT: 60 yo F hx of emphysema, HTN, stroke (apr 2019) with no residual deficits, hx of back fracture in with resultant chronic pain presents due to complaints of worsening body tremors since this am. As per patient, she has been having these symptoms since her PCP lowered her norco dose in Jun, but have acutely worsened this morning. Patient was found to have asymptomatic hyponatremia and hypokalemia in the ED. Will be admitted for management of electrolytes disturbances. PLAN: #Asymptomatic Hyponatremia r/o 2/2 to decreased Na intake, dehydration vs. glucocorticoid deficiency -Normal Na this AM, improved with NSS alone -TSH wnl, AM cortisol wnl -Patient states she is on a very strict diet at home and uses no salt, restricts heavily. -Advised that she may be being too strict with salt restriction. She is advised to f/u with her PCP and recommend an o/p cortisol stimulation test #Hypokalemia- improved -Monitor daily labs #Tremors possibly 2/2 to anxiety vs. low sodium levels-resolved -No s/s of opiate w/d -C/W home medications #HTN -BP stable -Currently normotensive. -C/w home med #Emphysema -Stable -CXR wnl -C/W home medication albuterol. #Hx of Stroke -No focal deficits -C/W home medications ASA, plavix, statin 40 #Hx of back fracture with chronic pain -Stable -C/W home medications norco PRN, tizanidine PRN. DISPOSITION: D/c home today in improved condition TIME SPENT ON DISCHARGE: Greater than 30 minutes. Vital Signs/I&Os Vital Signs Date Time Temp Pulse Resp B/P (MAP) Pulse Ox O2 Delivery O2 Flow Rate FiO2 08/25/20 08:40 18 Room Air 08/25/20 07:44 85 126/77 08/25/20 06:00 99.1 95 I&O- Last 24 Hours up to 6 AM 08/25/20 06:00 Intake Total 180 ml Output Total 250 ml Balance -70 ml Laboratory Data Labs 24H Laboratory Tests 2 08/24/20 18:55: Anion Gap 4L, Glomerular Filtration Rate > 60.0, Calcium Level 8.3L 08/24/20 23:00: Anion Gap 3L, Glomerular Filtration Rate > 60.0, Calcium Level 8.2L 08/25/20 03:06: Anion Gap 2L, Glomerular Filtration Rate > 60.0, Calcium Level 7.9L 08/25/20 06:13: Anion Gap 2L, Glomerular Filtration Rate > 60.0, Calcium Level 7.8L, Total Bilirubin 0.2, Aspartate Amino Transf (AST/SGOT) 13, Alanine Aminotransferase (ALT/SGPT) 20, Alkaline Phosphatase 54, Total Protein 5.8L, Albumin 3.2, Albumin/Globulin Ratio 1.2 CBC/BMP Laboratory Tests 08/24/20 18:55 08/24/20 23:00 08/25/20 03:06 08/25/20 06:13 Discharge Medications Scheduled Aspirin (Ecotrin) 81 Mg Tablet.dr, 81 MG PO DAILY, (Reported) Atorvastatin Calcium (Atorvastatin Calcium) 80 Mg Tablet, 40 MG PO QPM, (Reported) Clopidogrel Bisulfate (Plavix) 75 Mg Tablet, 75 MG PO DAILY, (Reported) Losartan Potassium (Losartan Potassium) 100 Mg Tablet, 100 MG PO DAILY, (Reported) Potassium Chloride (Potassium Chloride) 20 Meq Tablet.er, 20 MEQ PO DAILY, (Reported) Sennosides (Senna) 8.6 Mg Tablet, 17.2 MG PO DAILY, (Reported) Scheduled PRN Albuterol Sulfate (Ventolin Hfa) 18 Gm Hfa.aer.ad, 2 PUFF INH Q4-6HP PRN for wheezing, (Reported) Alprazolam (Alprazolam) 0.5 Mg Tablet, 0.5 MG PO TID PRN for ANXIETY, (Reported) Hydrocodone/Acetaminophen (Hydrocodone-Acetamin 5-325 mg) 1 Each Tablet, 1 TAB PO Q6H PRN for PAIN, (Reported) may take 2 tabs prn Tizanidine HCl (Tizanidine HCl) 4 Mg Capsule, 4 MG PO Q8HP PRN for MUSCLE SPASMS, (Reported) Allergies Coded Allergies: Penicillins (Verified Allergy, Unknown, 07/18/19) Tetracyclines (Verified Allergy, Unknown, 07/18/19) cyclobenzaprine (Verified Allergy, Unknown, 07/18/19) oxycodone (Verified Allergy, Unknown, 07/18/19) Michelle Gray MD Aug 25, 2020 17:20
== END 2020-08-25 10:02 | disposition home or self-care (01) | DRG 425 ==
LOC: M ED 18:22 → M ED INP 23:23 → M PCU 08-24 00:26 → M MSPAV 08-24 15:42
PROVIDERS: ADMIT Family Medicine; ATTEND Internal Medicine
DX: E87.1 Hypo-osmolality and hyponatremia (principal); I10 Essential (primary) hypertension; E87.6 Hypokalemia; J43.9 Emphysema, unspecified; F41.9 Anxiety disorder, unspecified; Z86.73 Personal history of transient ischemic attack (TIA), and cerebral infarction without residual deficits

== ENCOUNTER → 2020-09-22 | Outpatient (CLI) | payer OTHER ==
[~2020-09-22] MED LIST changes: +ALPR0.5T3 PO; +ATOR80TA59 PO; +HYDR-3713 PO; +HYDR25TAB PO; +POTA1TAB14 PO; +SENN-80 PO
--- NOTE | 2020-09-22 11:05 | REP ---
INDICATION: OTHER NON SPECIFIC ABNORMAL FINDING OF LUNG FIELD COMPARISON: 02/27/2020 TECHNIQUE: Axial noncontrast images from the thoracic inlet to the upper abdomen with coronal and sagittal reformations. This CT examination was performed using the following dose reduction techniques: Automated exposure control, adjustment of mA and/or kv according to the patient's size, and use of iterative reconstruction technique. FINDINGS: Advanced emphysematous changes with chronic interstitial changes and scattered scarring again noted and stable. Scattered noncalcified nodules including upper lobe nodules with spiculated margins again identified and essentially unchanged. A single lesion in the left apex on prior examination appears decreased in size while the remaining lesions appear stable. No new consolidation, suspicious nodule or mass. No effusion. No pneumothorax. Tracheobronchial tree is patent. No significant axillary, hilar, or mediastinal adenopathy. Stable atherosclerotic changes to the thoracic aorta and coronary arteries again noted without aortic aneurysm or cardiomegaly. No pericardial effusion. IMPRESSION: 1. Chronic stable emphysematous changes with scattered scarring. 2. Scattered noncalcified nodules noted bilaterally remain stable or decreased in size. 3. No new acute mediastinal or pleuroparenchymal process appreciated. <Electronically signed by Maurice Antunez > 09/22/20 1103
== END ==
LOC: M RAD 10:05
PROVIDERS: ATTEND Internal Medicine Pulmonary Disease
DX: R91.8 Other nonspecific abnormal finding of lung field (principal)

== ENCOUNTER → 2020-10-31 | Outpatient (CLI) | payer OTHER ==
[~2020-10-31] MED LIST changes: +HYDR-3490 PO; -HYDR25TAB PO
--- NOTE | 2020-10-31 11:00 | REP ---
INDICATION: LOW BACK PAIN. COMPARISON: None. TECHNIQUE: Sagittal and axial T1 and T2-weighted scans are acquired in the usual fashion with and without fat saturation. Sequences include spin echo, turbo spin-echo, and STIR imaging sequences. FINDINGS: There is a moderate to marked levoconvex upper lumbar scoliotic curve. Varney at L2. Lumbar vertebral body heights are preserved. Alignment is otherwise normal. No extra-spinal abnormality is observed. Tip of the conus medullaris is normal in position and appearance at T12. Axial and sagittal images at L1-L2 demonstrate degenerative disc narrowing, diffuse posterior disc bulging indenting the ventral margin of the thecal sac. No spinal stenosis is seen. No neural foraminal narrowing is observed. At L2-L3 there is degenerative disc narrowing and posterior disc bulging effacing the ventral subarachnoid space as well. There is facet hypertrophy on the right. No disc protrusion is seen. No spinal stenosis seen. At L3-L4, there is diffuse disc bulging as well subtly indenting the ventral margin of the thecal sac. There is ligamentum flavum and facet hypertrophy at L3-4 bilaterally. No spinal stenosis is seen. No disc protrusion is observed. No definite neural foraminal narrowing. At L4-5, there is a broad-based left central focal disc protrusion indenting the thecal sac. There is ligamentum flavum and facet hypertrophy bilaterally at L4-5, left more so than right. There is left-sided neural foraminal narrowing due to facet hypertrophy and discogenic spurring. At L5-S1, there is moderate facet hypertrophy bilaterally, right greater than left. No disc protrusion, foraminal narrowing, or spinal stenosis seen. IMPRESSION: Scoliosis and degenerative spondylosis changes. At L4-5, there is a broad-based left central focal disc protrusion. Facet hypertrophy is noted. There is neural foraminal narrowing on the left at L4-5. <Electronically signed by Fabian Garcia > 10/31/20 [id number]
== END ==
LOC: M RAD 08:50
PROVIDERS: ATTEND Nurse Practitioner Family
DX: R93.7 Abnormal findings on diagnostic imaging of other parts of musculoskeletal system (principal); M54.5 Low back pain

== ENCOUNTER → 2020-12-04 | Outpatient (CLI) | payer OTHER ==
--- NOTE | 2020-12-04 16:45 | REP ---
INDICATION: OCCLUSION/STENOSIS RYAN CAROTID ART ATHSCHL CLAUDIC. The patient reports bilateral iliac and aortic stents. COMPARISON: Comparison sonography May 27, 2020.. TECHNIQUE: Bilateral lower extremity arterial Doppler ultrasound. FINDINGS: The ankle brachial index on the right is low at 0.6, previously 0.8. Ankle brachial index could not be measured on the left as the patient was unable to tolerate adequate cuff insufflation. The distal aorta and common iliac arteries could not be assessed today due to abdominal gas. There is moderate to is severe plaquing seen bilaterally throughout the lower extremities. In the right lower extremity, there is a severe stenosis evident in the external iliac artery on the right with a 12-1 velocity stenosis ratio. Monophasic waveforms are noted throughout the right lower extremity. No high-grade stenosis or occlusion is seen on the left. Right lower extremity arterial Doppler velocity chart: Right external iliac artery PSV 56/655/182 cm/S WIRELESS CONSULTANT 191 Profundal 47 Proximal SFA 72 Mid SFA 69 Distal SFA 52/80 Popliteal 48 Proximal JAMES 20 Tibial-peroneal trunk 32 Proximal CLINICAL COURIER 35 Distal CLINICAL COURIER 30 Distal JAMES 15 Left lower extremity arterial Doppler velocity chart: Left external iliac artery PSV 202 cm/S WIRELESS CONSULTANT 198 Profundal 82 Proximal SFA 109 Mid SFA 110 Distal SFA 110 Popliteal 79 Proximal JAMES 48 Tibial-peroneal trunk 59 Proximal CLINICAL COURIER 22 Distal CLINICAL COURIER 48 Distal JAMES 56 IMPRESSION: Moderate to severe plaquing. 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 Monophasic waveforms throughout the right lower extremity. <Electronically signed by Fabian Garcia > 12/04/20 1247
--- NOTE | 2020-12-05 07:22 | REP ---
INDICATION: OCCLUSION/STENOSIS RYAN CAROTID ART ATHSCHL CLAUDIC COMPARISON: 05/27/2020 TECHNIQUE: Bernard scale and color Doppler evaluation using linear high frequency transducer Findings: FINDINGS: The right carotid system demonstrates significant mixed atheromatous plaquing through the common carotid artery extending to the bulb and proximal internal and external carotid arteries. The left carotid system demonstrates complete occlusion through the common carotid artery and extension into the stented internal carotid artery. Normal flow direction noted in the bilateral vertebral arteries. ICA peak systolic velocity: Right 73.7 cm/s; Left cm/s ICA diastolic velocity: Right occluded 26.7 cm/s; Left occluded cm/s ECA peak systolic velocity: Right 113.9-359.9 cm/s; Left 92.3 cm/s CCA peak systolic velocity: Right 93.1 cm/s; Left occluded cm/s ICA/CCA ratio: Right 0.79 cm/s; Left -- cm/s IMPRESSION: 1. Extensive significant atheromatous plaquing through the right carotid system with narrowing in the internal carotid artery at the less than 50% range. Increased velocity and stenosis through the right external carotid artery within the greater than 70% range. 2. 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 <Electronically signed by Maurice Antunez > 12/05/20 0718
== END ==
LOC: M RAD 12:48
PROVIDERS: ATTEND Physician Assistant
DX: I65.23 Occlusion and stenosis of bilateral carotid arteries (principal); I70.213 Atherosclerosis of native arteries of extremities with intermittent claudication, bilateral legs

== ENCOUNTER → 2021-02-11 | Outpatient (REF) | payer OTHER ==
[2021-02-11 12:04] LABS: HEMATOCRIT 42.9 % (36.0-47.0); HEMOGLOBIN 14.7 g/dl (12.0-15.5); MEAN CORPUSCULAR HEMOGLOBIN 33.8 pg (27.0-33.0); MEAN CORPUSCULAR HGB CONC 34.3 g/dl (32.0-36.5); MEAN CORPUSCULAR VOLUME 98.6 fl (80.0-96.0); PLATELET COUNT, AUTOMATED 311 10^3/uL (150-450); RED BLOOD COUNT 4.35 10^6/uL (4.00-5.40); WHITE BLOOD COUNT 7.9 10^3/uL (4.0-10.0)
[2021-02-11 12:41] LABS: ALBUMIN 3.8 GM/DL (3.2-5.2); ALT/SGPT 27 U/L (12-78); BILIRUBIN,TOTAL 0.4 MG/DL (0.2-1.0); BLOOD UREA NITROGEN 13 MG/DL (7-18); CALCIUM LEVEL 9.1 MG/DL (8.8-10.2); CARBON DIOXIDE LEVEL 35 MEQ/L (21-32); CHLORIDE LEVEL 96 MEQ/L (98-107); CHOLESTEROL LEVEL 160 MG/DL (<200); CHOLESTEROL RISK RATIO 1.758 (<5); GLOMERULAR FILTRATION RATE > 60.0 (>45); GLUCOSE, FASTING 90 MG/DL (70-100); HDL CHOLESTEROL 91 MG/DL (>40); LDL CHOLESTEROL 52 MG/DL (<100); NON-HDL-C 69 MG/DL; POTASSIUM SERUM 3.7 MEQ/L (3.5-5.1); SODIUM LEVEL 132 MEQ/L (136-145); TOTAL PROTEIN 6.7 GM/DL (6.4-8.2); TRIGLYCERIDES LEVEL 87 MG/DL (<150)
[2021-02-11 12:45] LABS: TOTAL 25(OH) VITAMIN D 19.3 NG/ML (30.0-100.0)
== END ==
LOC: M SFHCCLAY 07:00
PROVIDERS: ATTEND Nurse Practitioner Family
DX: G89.4 Chronic pain syndrome (principal); E78.2 Mixed hyperlipidemia; E55.9 Vitamin D deficiency, unspecified

== ENCOUNTER → 2021-05-08 | Outpatient (REF) | payer OTHER | LOC: M SFHCCLAY 07:05 | PROVIDERS: ATTEND Family Medicine | DX: E55.9 Vitamin D deficiency, unspecified (principal) ==

== ENCOUNTER → 2021-05-11 | Outpatient (REF) | payer OTHER | LOC: M SFHCCLAY 11:07 | PROVIDERS: ATTEND Family Medicine | DX: Z79.891 Long term (current) use of opiate analgesic (principal) ==

== ENCOUNTER → 2021-05-19 | Outpatient (REF) | payer OTHER | LOC: M WUC 09:18 | PROVIDERS: ATTEND Physician Assistant | DX: R30.0 Dysuria (principal); J06.9 Acute upper respiratory infection, unspecified; Z20.828 Contact with and (suspected) exposure to other viral communicable diseases ==

== ENCOUNTER → 2021-06-17 | Outpatient (REF) | payer OTHER | LOC: M SFHCWAGY 18:25 | PROVIDERS: ATTEND Advanced Practice Midwife | DX: Z12.4 Encounter for screening for malignant neoplasm of cervix (principal) ==

== ENCOUNTER → 2021-06-17 | Outpatient (CLI) | payer OTHER ==
--- NOTE | 2021-06-17 15:27 | REP ---
INDICATION: RYAN SCR MAMMO Z12.31. COMPARISON: This is the patient's baseline mammogram. TECHNIQUE: Digital screening (2D) mammography was performed bilaterally in the CC and MLO projections. Additionally, breast tomosynthesis (3D mammography) was performed bilaterally in the CC and MLO projections. FINDINGS: By history, the patient has no complaints of a palpable breast abnormality or other significant breast complaints. The Volpara volumetric breast density pattern is b, there are scattered areas of fibroglandular density.. In the anterior 3rd of the right breast, above and lateral to the nipple, in the upper outer quadrant, at approximately the 11 o'clock position, there is an isodense focal asymmetry. The left breast has an unremarkable appearance. IMPRESSION: BIRADS/ACR : 0: Incomplete, need additional imaging evaluation. This patient's Tyrer-Cuzick lifetime breast cancer risk assessment score is 4.4%. This mammogram was interpreted with the aid of an FDA-approved computer-aided detection system. The patient states she had a clinical breast exam in May 2021. The patient letter being requested is M0. RECOMMENDATION: 3D focal compression of the right breast in the CC and MLO orientations, and right breast ultrasound. <Electronically signed by Robin Lovelace > 06/17/21 [id number]
== END ==
LOC: M WHC 13:51
PROVIDERS: ATTEND Advanced Practice Midwife
DX: R92.2 Inconclusive mammogram (principal)

== ENCOUNTER → 2021-06-21 | Outpatient (REF) | payer OTHER | LOC: M WUC 18:13 | PROVIDERS: ATTEND Physician Assistant | DX: R11.2 Nausea with vomiting, unspecified (principal) ==

== ENCOUNTER → 2021-07-29 | Outpatient (CLI) | payer OTHER ==
--- NOTE | 2021-07-29 13:17 | REP ---
INDICATION: RIGHT BREAST ADD VIEWS. COMPARISON: Screening mammogram, 06/17/2021. TECHNIQUE: 2D and 3D spot compression images of the right breast were obtained in the CC and MLO orientations. FINDINGS: The isodense focal asymmetry, seen in the right breast on the recent screening mammogram, is shown to be normal breast tissue at additional view mammography. IMPRESSION: BIRADS/ACR : Category 1: Negative. The patient letter being requested is M1. RECOMMENDATION: Repeat screening mammography recommended 1 year (for women over 40). <Electronically signed by Robin Lovelace > 07/29/21 [id number]
== END ==
LOC: M WHC 12:38
PROVIDERS: ATTEND Advanced Practice Midwife
DX: Z12.31 Encounter for screening mammogram for malignant neoplasm of breast (principal)
CPT/HCPCS: 77065; G0279

== ENCOUNTER 2021-08-19 14:36 | Emergency (ER) | payer OTHER ==
[~2021-08-19] VITALS: Ht 162.6 cm; Wt 50.0 kg
[2021-08-19 14:36] VITALS: BP 176/79
[2021-08-19] MEDS ORDERED: FLUT1BLS8 (14:44)
--- NOTE | 2021-08-19 20:56 | REPVR ---
PROCEDURE INFORMATION: Exam: CT Head Without Contrast Exam date and time: 08/19/2021 8:18 PM Age: 61 years old Clinical indication: Pain; Headache TECHNIQUE: Imaging protocol: Computed tomography of the head without contrast. Radiation optimization: All CT scans at this facility use at least one of these dose optimization techniques: automated exposure control; mA and/or kV adjustment per patient size (includes targeted exams where dose is matched to clinical indication); or iterative reconstruction. COMPARISON: CT Head without contrast 03/25/2019 8:01 PM FINDINGS: Brain: Normal. No hemorrhage. Unremarkable white matter. No mass effect. Cerebral ventricles: No ventriculomegaly. Paranasal sinuses: Visualized sinuses are unremarkable. No fluid levels. Mastoid air cells: Visualized mastoid air cells are well aerated. Bones/joints: Unremarkable. No acute fracture. Soft tissues: Unremarkable. IMPRESSION: No acute intracranial abnormality. Electronically signed by: Darell Uribe On 08/19/2021 20:55:54 PM
== END 2021-08-19 20:53 | disposition left against medical advice (07) ==
LOC: M ED 14:36
DX: R51.9 Headache, unspecified (principal); Z95.5 Presence of coronary angioplasty implant and graft; Z87.828 Personal history of other (healed) physical injury and trauma; Z79.899 Other long term (current) drug therapy; Z79.82 Long term (current) use of aspirin; Z79.01 Long term (current) use of anticoagulants; Z88.0 Allergy status to penicillin; Z88.8 Allergy status to other drugs, medicaments and biological substances

== ENCOUNTER → 2021-10-13 | Outpatient (REF) | payer OTHER ==
[~2021-10-13] MED LIST changes: +FLUT1BLS8; +LOSA100T45 PO; -LOSA100T50 PO
== END ==
LOC: M LAB REF 15:29
PROVIDERS: ATTEND Physician Assistant
DX: R30.0 Dysuria (principal)

== ENCOUNTER 2021-11-10 08:11 | Emergency (ER) | payer OTHER ==
[~2021-11-10] VITALS: Ht 162.6 cm; Wt 47.7 kg
[2021-11-10] MEDS ORDERED: VITA200016 (08:21)
[2021-11-10] MEDS ORDERED: NS 1,430 ML in IV 1 EA IV ONE (09:10)
[2021-11-10] MEDS ORDERED: ONDANSETRON 4MG/2ML VIAL IV ONE (09:30)
[2021-11-10 10:00] LABS: BASO # 0.1 10^3/uL (0.0-0.2); BASO % 0.9 % (0.0-1.0); EOS % 0.3 % (0.0-3.0); HEMATOCRIT 38.9 % (36.0-47.0); HEMOGLOBIN 13.8 g/dl (12.0-15.5); LYMPH # 1.2 10^3/uL (1.5-5.0); LYMPH % 17.7 % (24.0-44.0); MEAN CORPUSCULAR HEMOGLOBIN 33.8 pg (27.0-33.0); MEAN CORPUSCULAR HGB CONC 35.5 g/dl (32.0-36.5); MEAN CORPUSCULAR VOLUME 95.3 fl (80.0-96.0); MONO # 0.4 10^3/uL (0.0-0.8); MONO % 6.4 % (2.0-8.0); NEUTROPHILS # 4.9 10^3/uL (1.5-8.5); NEUTROPHILS % 74.2 % (36.0-66.0); PLATELET COUNT, AUTOMATED 279 10^3/uL (150-450); RED BLOOD COUNT 4.08 10^6/uL (4.00-5.40); WHITE BLOOD COUNT 6.6 10^3/uL (4.0-10.0)
[2021-11-10 10:27] LABS: ALBUMIN 3.9 GM/DL (3.2-5.2); ALT/SGPT 23 U/L (12-78); BILIRUBIN,TOTAL 0.5 MG/DL (0.2-1.0); BLOOD UREA NITROGEN 11 MG/DL (7-18); CALCIUM LEVEL 9.6 MG/DL (8.8-10.2); CARBON DIOXIDE LEVEL 32 MEQ/L (21-32); CHLORIDE LEVEL 96 MEQ/L (98-107); CREATININE FOR GFR 0.83 MG/DL (0.55-1.30); GLOMERULAR FILTRATION RATE > 60.0 (>45); GLUCOSE, FASTING 118 MG/DL (70-100); POTASSIUM SERUM 3.2 MEQ/L (3.5-5.1); SODIUM LEVEL 134 MEQ/L (136-145); TOTAL PROTEIN 6.5 GM/DL (6.4-8.2)
[2021-11-10] MEDS ORDERED: ALPRAZolam 0.5 MG TAB PO ONE (10:40)
[2021-11-10] MEDS ORDERED: NORCO, ANEXSIA 5/325MG TABLET (HYDROcodone/ACETAMINOPHEN) PO ONE (10:40)
[2021-11-10] MEDS ORDERED: POTASSIUM CHLORIDE 10MEQ SR TABLET PO ONE (11:10)
[2021-11-10 12:15] VITALS: BP 121/56
[2021-11-11] MEDS ORDERED: OMEP40CA4 PO (13:39)
[2021-11-11] MEDS ORDERED: ONDA4TAB6 PO (13:39)
[2021-11-11] MEDS ORDERED: SUCR1TA PO (13:39)
== END 2021-11-10 12:25 | disposition left against medical advice (07) ==
LOC: M ED 08:11 → EDBD 08:11 → M ED 12:25
DX: R11.2 Nausea with vomiting, unspecified (principal); Z95.5 Presence of coronary angioplasty implant and graft; Z88.0 Allergy status to penicillin; Z88.1 Allergy status to other antibiotic agents; Z88.5 Allergy status to narcotic agent; Z88.8 Allergy status to other drugs, medicaments and biological substances; Z79.899 Other long term (current) drug therapy; Z79.82 Long term (current) use of aspirin; Z79.01 Long term (current) use of anticoagulants
CPT/HCPCS: 80053; 83605; 85025; 93041; 96361; 96374; 99285; J2405

== ENCOUNTER 2021-11-11 10:30 | Emergency (ER) | payer OTHER ==
[~2021-11-11 10:30] MED LIST changes: +VITA200016
[2021-11-11] MEDS ORDERED: ONDANSETRON 4MG/2ML VIAL IV ONE (10:35)
[2021-11-11] MEDS ORDERED: NS 1,000 ML IV ONE (10:35)
[2021-11-11 11:03] LABS: BASO # 0.1 10^3/uL (0.0-0.2); BASO % 0.9 % (0.0-1.0); EOS % 0.1 % (0.0-3.0); HEMATOCRIT 39.6 % (36.0-47.0); HEMOGLOBIN 13.8 g/dl (12.0-15.5); LYMPH # 1.2 10^3/uL (1.5-5.0); LYMPH % 15.5 % (24.0-44.0); MEAN CORPUSCULAR HEMOGLOBIN 33.5 pg (27.0-33.0); MEAN CORPUSCULAR HGB CONC 34.8 g/dl (32.0-36.5); MEAN CORPUSCULAR VOLUME 96.1 fl (80.0-96.0); MONO # 0.5 10^3/uL (0.0-0.8); MONO % 6.4 % (2.0-8.0); NEUTROPHILS # 5.8 10^3/uL (1.5-8.5); NEUTROPHILS % 76.7 % (36.0-66.0); PLATELET COUNT, AUTOMATED 265 10^3/uL (150-450); RED BLOOD COUNT 4.12 10^6/uL (4.00-5.40); WHITE BLOOD COUNT 7.6 10^3/uL (4.0-10.0)
[2021-11-11] MEDS ORDERED: ISOVUE-370 76% 100ML VIAL As Ordered ONE (11:14)
[2021-11-11 11:32] LABS: ALBUMIN 3.8 GM/DL (3.2-5.2); BILIRUBIN,DIRECT 0.1 MG/DL (0.0-0.2); BILIRUBIN,TOTAL 0.4 MG/DL (0.2-1.0); TOTAL PROTEIN 6.3 GM/DL (6.4-8.2)
[2021-11-11 13:30] VITALS: BP 103/57
[2021-11-11] MEDS ORDERED: OMEP40CA4 PO (13:39)
[2021-11-11] MEDS ORDERED: SUCR1TA PO (13:39)
[2021-11-11] MEDS ORDERED: ONDA4TAB6 PO (13:39)
== END 2021-11-11 13:52 | disposition home or self-care (01) ==
LOC: M ED 10:30
DX: K29.70 Gastritis, unspecified, without bleeding (principal); I10 Essential (primary) hypertension; J44.9 Chronic obstructive pulmonary disease, unspecified; E78.5 Hyperlipidemia, unspecified; Z86.73 Personal history of transient ischemic attack (TIA), and cerebral infarction without residual deficits; Z79.899 Other long term (current) drug therapy; Z79.82 Long term (current) use of aspirin; Z79.01 Long term (current) use of anticoagulants; Z88.0 Allergy status to penicillin; Z88.1 Allergy status to other antibiotic agents; Z88.5 Allergy status to narcotic agent; Z88.8 Allergy status to other drugs, medicaments and biological substances; Z87.891 Personal history of nicotine dependence
CPT/HCPCS: 71045; 74177; 80047; 80076; 83605; 83690; 85025; 93041; 96360; 99284; Q9967

== ENCOUNTER → 2021-11-26 | Outpatient (CLI) | payer OTHER ==
[~2021-11-26] MED LIST changes: +OMEP40CA4 PO; +ONDA4TAB6 PO; +SUCR1TA PO
== END ==
LOC: M RAD 08:12
PROVIDERS: ATTEND Internal Medicine Pulmonary Disease
DX: Z87.891 Personal history of nicotine dependence (principal)

== ENCOUNTER → 2022-04-08 | Outpatient (REF) | payer OTHER | LOC: M LAB REF 16:13 | PROVIDERS: ATTEND Physician Assistant | DX: N39.0 Urinary tract infection, site not specified (principal) ==

== ENCOUNTER → 2022-06-01 | Outpatient (CLI) | payer OTHER | LOC: M RAD 12:17 | PROVIDERS: ATTEND Internal Medicine Pulmonary Disease | DX: R93.89 Abnormal findings on diagnostic imaging of other specified body structures (principal); J43.9 Emphysema, unspecified; R91.1 Solitary pulmonary nodule ==

== ENCOUNTER → 2022-06-15 | Outpatient (REF) | payer OTHER | LOC: M WUC 09:28 | PROVIDERS: ATTEND Student in an Organized Health Care Education/Training Program | DX: R30.0 Dysuria (principal) ==

== ENCOUNTER 2022-06-20 13:19 | Inpatient (IN) | payer OTHER ==
[~2022-06-20] VITALS: Ht 162.6 cm; Wt 42.7 kg
[~2022-06-20 13:19] MED LIST changes: +CLOP75TA99 PO; -FLUT1BLS8; +FLUT1BLS8 INH; -PLAV1TAB2 PO; -VITA200016; +VITA200016 PO
[2022-06-20] MEDS ORDERED: NITR100C2 PO (13:33)
[2022-06-20] MEDS ORDERED: NS 1,000 ML IV ONE (14:00)
[2022-06-20 14:40] LABS: BASO # 0.1 10^3/uL (0.0-0.2); BASO % 0.4 % (0.0-1.0); EOS % 0.3 % (0.0-3.0); HEMATOCRIT 43.1 % (36.0-47.0); HEMOGLOBIN 14.2 g/dl (12.0-15.5); LYMPH # 1.3 10^3/uL (1.5-5.0); MEAN CORPUSCULAR HEMOGLOBIN 33.2 pg (27.0-33.0); MEAN CORPUSCULAR HGB CONC 32.9 g/dl (32.0-36.5); MEAN CORPUSCULAR VOLUME 100.7 fl (80.0-96.0); MONO # 1.4 10^3/uL (0.0-0.8); MONO % 11.5 % (2.0-8.0); NEUTROPHILS % 75.5 % (36.0-66.0); PLATELET COUNT, AUTOMATED 326 10^3/uL (150-450); RED BLOOD COUNT 4.28 10^6/uL (4.00-5.40)
[2022-06-20] MEDS ORDERED: NS IV ONE (14:40)
[2022-06-20] MEDS ORDERED: cefTRIAXone SOD 2 GM in D5W MINI-BAG PLUS 50 ML IV ONE (14:45)
[2022-06-20 14:52] LABS: INR 0.95; PROTHROMBIN TIME 12.9 SECONDS (12.5-14.5)
[2022-06-20 15:08] LABS: CK-MB VALUE MASS 5.3 NG/ML (<3.6); MB/CK RELATIVE INDEX 0.88 (< OR =4)
[2022-06-20] MEDS ORDERED: DIGOXIN INJ 0.5 MG/2 ML AMP (J1160) IV STA ×2 (15:54→16:29)
[2022-06-20 16:39] LABS: MAGNESIUM LEVEL 2.8 MG/DL (1.8-2.4)
[2022-06-20 16:50] LABS: CK-MB VALUE MASS 5.7 NG/ML (<3.6)
[2022-06-20] MEDS ORDERED: HYDR-4514 PO (18:31)
[2022-06-20] MEDS ORDERED: BACTDSTA PO (18:31)
[2022-06-20] MEDS ORDERED: ALPR1TAB3 PO (18:31)
[2022-06-20] MEDS ORDERED: HYDR-3490 PO (18:31)
[2022-06-20] MEDS ORDERED: IPRA6SP NARES (18:31)
[2022-06-20] MEDS ORDERED: OMEP40CA4 PO (18:45)
[2022-06-20] MEDS ORDERED: POTA-150 PO (18:45)
[2022-06-20] MEDS ORDERED: HOME MED LIST COMPLETE! XX SCH (18:45)
[2022-06-20] MEDS ORDERED: SENNA 8.6 MG TAB (SENOKOT) PO PRN (18:55)
[2022-06-20] MEDS ORDERED: HYDROMORPHONE HCL 0.5 MG/ 0.5 ML SYRINGE (J1170 PER 1) IV PRN (18:55)
[2022-06-20] MEDS ORDERED: IPRATROPIUM 0.02% SOLN 0.5MG 2.5ML NEB NEB PRN (18:55)
[2022-06-20 19:49] LABS: FREE T4 1.24 NG/DL (0.76-1.46); THYROID STIMULATING HORMONE 0.573 uIU/ML (0.358-3.740)
[2022-06-20 20:05] VITALS: BP 125/69
[2022-06-20] MEDS: IPRATROPIUM 0.02% SOLN 0.5MG 2.5ML NEB NEB SCH (20:39)
[2022-06-20] MEDS: APIXABAN 2.5 MG TAB (ELIQUIS) PO SCH (20:44)
[2022-06-20] MEDS: METOPROLOL TART 50 MG TAB PO SCH (20:44)
[2022-06-20] MEDS: LR 1,000 ML IV SCH (20:45)
[2022-06-20] MEDS ORDERED: METOPROLOL TART 25 MG TABLET PO SCH (21:00)
[2022-06-20] MEDS ORDERED: ALPRAZolam 0.25 MG TAB PO ONE (22:00)
[2022-06-21] VITALS (8 sets, daily range): BP systolic 140–208; BP diastolic 64–92
[2022-06-21] MEDS: IPRATROPIUM 0.02% SOLN 0.5MG 2.5ML NEB NEB SCH ×4 (03:12→20:56)
[2022-06-21] MEDS ORDERED: amLODIPine 5 MG TAB PO ONE ×2 (04:25→11:55)
[2022-06-21 05:33] LABS: HEMATOCRIT 40.4 % (36.0-47.0); HEMOGLOBIN 13.5 g/dl (12.0-15.5); MEAN CORPUSCULAR HEMOGLOBIN 33.9 pg (27.0-33.0); MEAN CORPUSCULAR HGB CONC 33.4 g/dl (32.0-36.5); MEAN CORPUSCULAR VOLUME 101.5 fl (80.0-96.0); PLATELET COUNT, AUTOMATED 306 10^3/uL (150-450); RED BLOOD COUNT 3.98 10^6/uL (4.00-5.40)
[2022-06-21 06:03] LABS: CALCIUM LEVEL 9.2 MG/DL (8.8-10.2); CREATININE FOR GFR 1.06 MG/DL (0.55-1.30); GLOMERULAR FILTRATION RATE 55.6 (>45); MAGNESIUM LEVEL 2.1 MG/DL (1.8-2.4); POTASSIUM SERUM 3.8 MEQ/L (3.5-5.1)
[2022-06-21 09:05] LABS: CK-MB VALUE MASS 2.7 NG/ML (<3.6); MB/CK RELATIVE INDEX 0.95 (< OR =4)
[2022-06-21] MEDS: APIXABAN 2.5 MG TAB (ELIQUIS) PO SCH (09:36)
[2022-06-21] MEDS: METOPROLOL TART 50 MG TAB PO SCH ×2 (09:36→21:04)
[2022-06-21] MEDS: cefTRIAXone SOD 2 GM in D5W MINI-BAG PLUS 50 ML IV SCH (09:36)
[2022-06-21] MEDS: PANTOPRAZOLE 40MG TAB (PROTONIX) PO SCH (09:36)
[2022-06-21] MEDS: LR 1,000 ML IV SCH (12:32)
[2022-06-21] MEDS: FLUTICASONE HFA 110 MCG 12 GM INHALER (FLOVENT) INH SCH (20:56)
[2022-06-21] MEDS ORDERED: ANEXSIA, NORCO 7.5MG/325MG TABLET(HYDROCODONE/APAP) PO SCH (21:00)
[2022-06-21] MEDS: APIXABAN 5 MG TAB (ELIQUIS) PO SCH (21:02)
[2022-06-21 21:09] LABS: ALBUMIN 2.4 GM/DL (3.2-5.2); BILIRUBIN,DIRECT 0.2 MG/DL (0.0-0.2); BILIRUBIN,TOTAL 0.3 MG/DL (0.2-1.0); TOTAL PROTEIN 6.8 GM/DL (6.4-8.2)
[2022-06-22] MEDS: LR 1,000 ML IV SCH (00:13)
[2022-06-22] MEDS: IPRATROPIUM 0.02% SOLN 0.5MG 2.5ML NEB NEB SCH ×2 (02:02→07:28)
[2022-06-22 03:52] VITALS: BP 174/80
[2022-06-22 04:00] VITALS: BP 170/82
[2022-06-22 05:17] LABS: HEMATOCRIT 39.3 % (36.0-47.0); HEMOGLOBIN 12.9 g/dl (12.0-15.5); MEAN CORPUSCULAR HEMOGLOBIN 33.1 pg (27.0-33.0); MEAN CORPUSCULAR HGB CONC 32.8 g/dl (32.0-36.5); MEAN CORPUSCULAR VOLUME 100.8 fl (80.0-96.0); PLATELET COUNT, AUTOMATED 355 10^3/uL (150-450); WHITE BLOOD COUNT 11.3 10^3/uL (4.0-10.0)
[2022-06-22 05:46] LABS: ATYPICAL LYMPH 4 % (0-5); EOSINOPHILS 1 % (0-3); LYMPHOCYTES 16 % (16-44); MONOCYTES 3 % (0-5); NEUTROPHILS 76 % (28-66)
[2022-06-22 05:47] LABS: PLATELET ESTIMATE NORMAL (NORMAL)
[2022-06-22 05:58] LABS: ALBUMIN 2.1 GM/DL (3.2-5.2); ALT/SGPT 103 U/L (12-78); BILIRUBIN,TOTAL 0.5 MG/DL (0.2-1.0); BLOOD UREA NITROGEN 23 MG/DL (7-18); CALCIUM LEVEL 8.7 MG/DL (8.8-10.2); CARBON DIOXIDE LEVEL 29 MEQ/L (21-32); CHLORIDE LEVEL 108 MEQ/L (98-107); CREATININE FOR GFR 0.72 MG/DL (0.55-1.30); GLOMERULAR FILTRATION RATE > 60.0 (>45); GLUCOSE, FASTING 102 MG/DL (70-100); POTASSIUM SERUM 3.8 MEQ/L (3.5-5.1); SODIUM LEVEL 142 MEQ/L (136-145); TOTAL PROTEIN 6.1 GM/DL (6.4-8.2)
[2022-06-22] MEDS ORDERED: ELIQ5TAB PO (07:12)
[2022-06-22] MEDS: FLUTICASONE HFA 110 MCG 12 GM INHALER (FLOVENT) INH SCH (07:28)
[2022-06-22 08:13] VITALS: BP 150/82
[2022-06-22] MEDS: METOPROLOL TART 50 MG TAB PO SCH (08:13)
[2022-06-22] MEDS: APIXABAN 5 MG TAB (ELIQUIS) PO SCH (08:15)
[2022-06-22] MEDS: PANTOPRAZOLE 40MG TAB (PROTONIX) PO SCH (08:15)
[2022-06-22] MEDS: cefTRIAXone SOD 2 GM in D5W MINI-BAG PLUS 50 ML IV SCH (09:00)
[2022-06-22] MEDS ORDERED: NORCO, ANEXSIA 5/325MG TABLET (HYDROcodone/ACETAMINOPHEN) PO SCH (09:00)
[2022-06-22] MEDS ORDERED: CEFD300C41 PO (09:13)
[2022-06-22] MEDS ORDERED: AMLO10TA PO (09:13)
[2022-06-22] MEDS ORDERED: METO75TA PO (09:13)
== END 2022-06-22 11:09 | disposition home health service (06) | DRG 201 ==
LOC: M ED 13:19 → M ED INP 18:00 → M PCU 20:17
PROVIDERS: ADMIT Internal Medicine; ATTEND Internal Medicine
DX: I48.91 Unspecified atrial fibrillation (principal); G93.41 Metabolic encephalopathy; N17.9 Acute kidney failure, unspecified; J44.9 Chronic obstructive pulmonary disease, unspecified; G89.29 Other chronic pain; I10 Essential (primary) hypertension; E55.9 Vitamin D deficiency, unspecified; F41.9 Anxiety disorder, unspecified; R26.81 Unsteadiness on feet; N39.0 Urinary tract infection, site not specified; K59.09 Other constipation; K21.9 Gastro-esophageal reflux disease without esophagitis; I16.0 Hypertensive urgency; T40.2X5A Adverse effect of other opioids, initial encounter; T42.4X5A Adverse effect of benzodiazepines, initial encounter; R29.6 Repeated falls; R53.1 Weakness; Z79.82 Long term (current) use of aspirin; Z87.891 Personal history of nicotine dependence; Z86.73 Personal history of transient ischemic attack (TIA), and cerebral infarction without residual deficits; Z79.891 Long term (current) use of opiate analgesic; Z79.02 Long term (current) use of antithrombotics/antiplatelets; Z79.899 Other long term (current) drug therapy; Z88.0 Allergy status to penicillin; Z88.5 Allergy status to narcotic agent; Z88.8 Allergy status to other drugs, medicaments and biological substances

== ENCOUNTER 2022-06-25 13:48 | Observation (INO) | payer OTHER ==
[~2022-06-25] VITALS: Ht 162.6 cm; Wt 47.7 kg
[~2022-06-25 13:48] MED LIST changes: +ALPR1TAB3 PO; +AMLO10TA PO; +BACTDSTA PO; +CEFD300C41 PO; +ELIQ5TAB PO; +HYDR-4514 PO; +IPRA6SP NARES; +METO75TA PO; +NITR100C2 PO; +POTA-150 PO
[2022-06-25 15:51] LABS: BASO # 0.1 10^3/uL (0.0-0.2); BASO % 0.9 % (0.0-1.0); EOS # 0.1 10^3/uL (0.0-0.5); EOS % 0.8 % (0.0-3.0); HEMATOCRIT 39.1 % (36.0-47.0); HEMOGLOBIN 12.6 g/dl (12.0-15.5); LYMPH # 1.6 10^3/uL (1.5-5.0); LYMPH % 15.3 % (24.0-44.0); MEAN CORPUSCULAR HEMOGLOBIN 33.2 pg (27.0-33.0); MEAN CORPUSCULAR HGB CONC 32.2 g/dl (32.0-36.5); MEAN CORPUSCULAR VOLUME 103.2 fl (80.0-96.0); MONO # 0.7 10^3/uL (0.0-0.8); MONO % 6.3 % (2.0-8.0); NEUTROPHILS % 75.5 % (36.0-66.0); PLATELET COUNT, AUTOMATED 458 10^3/uL (150-450); RED BLOOD COUNT 3.79 10^6/uL (4.00-5.40); WHITE BLOOD COUNT 10.6 10^3/uL (4.0-10.0)
[2022-06-25 16:06] LABS: INR 1.13; PARTIAL THROMBOPLASTIN TIME 30.1 SECONDS (24.8-34.2); PROTHROMBIN TIME 14.8 SECONDS (12.5-14.5)
[2022-06-25 16:49] LABS: BLOOD UREA NITROGEN 14 MG/DL (7-18); CALCIUM LEVEL 8.7 MG/DL (8.8-10.2); CARBON DIOXIDE LEVEL 31 MEQ/L (21-32); CHLORIDE LEVEL 106 MEQ/L (98-107); CK-MB VALUE MASS 1.6 NG/ML (<3.6); CREATININE FOR GFR 0.66 MG/DL (0.55-1.30); GLOMERULAR FILTRATION RATE > 60.0 (>45); GLUCOSE, FASTING 105 MG/DL (70-100); MB/CK RELATIVE INDEX 3.02 (< OR =4); POTASSIUM SERUM 3.5 MEQ/L (3.5-5.1); SODIUM LEVEL 141 MEQ/L (136-145)
[2022-06-25] MEDS ORDERED: ISOVUE-370 76% 100ML VIAL As Ordered ONE (17:50)
[2022-06-25] MEDS ORDERED: HYDR-4514 PO (20:44)
[2022-06-25] MEDS ORDERED: METO50TA7 PO (20:44)
[2022-06-25] MEDS ORDERED: METO1TAB87 PO (20:44)
[2022-06-25] MEDS ORDERED: AMLO1TAB25 PO (20:44)
[2022-06-25] MEDS ORDERED: CEFD300C41 PO (20:44)
[2022-06-25] MEDS ORDERED: ELIQ5TAB PO (20:44)
[2022-06-25] MEDS ORDERED: HOME MED LIST COMPLETE! XX SCH (20:45)
[2022-06-25] MEDS ORDERED: tiZANidine 4 MG TAB PO SCH (21:00)
[2022-06-25] MEDS ORDERED: METOPROLOL TART 25 MG TABLET PO SCH (21:00)
[2022-06-25] MEDS ORDERED: ANEXSIA, NORCO 7.5MG/325MG TABLET(HYDROCODONE/APAP) PO SCH (21:00)
[2022-06-25] MEDS ORDERED: APIXABAN 5 MG TAB (ELIQUIS) PO SCH (21:00)
[2022-06-25] MEDS: ALPRAZolam 0.5 MG TAB PO SCH ×2 (21:00→23:01)
[2022-06-25 21:44] LABS: RSV AMPLIFICATION NEGATIVE (NEGATIVE)
[2022-06-25] MEDS ORDERED: ACETAMINOPHEN TAB 650MG DOSE (2X325MG) PO PRN (22:40)
[2022-06-25] MEDS ORDERED: SENNA 8.6 MG TAB (SENOKOT) PO PRN (22:45)
[2022-06-25] MEDS ORDERED: ALBUTEROL 90 MCG/ACT 8GM HFA INHALER INH PRN (22:45)
[2022-06-25] MEDS ORDERED: ASPIRIN 81 MG CHEW TABLET PO ONE (23:00)
[2022-06-26 08:30] VITALS: BP 140/75
[2022-06-26] MEDS ORDERED: OMEPRAZOLE 20MG CAP PO SCH (09:00)
[2022-06-26] MEDS ORDERED: IPRATROPIUM 0.06% NASAL SPRAY 15 ML (ATROVENT) SCH (09:00)
[2022-06-26] MEDS ORDERED: ANEXSIA, NORCO 7.5MG/325MG TABLET(HYDROCODONE/APAP) PO SCH (09:00)
[2022-06-26] MEDS ORDERED: METOPROLOL TART 50 MG TAB PO SCH (09:00)
[2022-06-26] MEDS ORDERED: ASPI81CH33 PO (09:28)
[2022-06-26] MEDS ORDERED: ATORVASTATIN 20 MG TAB PO SCH (21:00)
== END 2022-06-26 08:50 | disposition left against medical advice (07) ==
LOC: EDBD 13:48 → M ED 13:48 → M ED INP 19:57 → CANRESERV 06-26 08:17 → ENRESERV 06-26 08:17
PROVIDERS: ADMIT Internal Medicine; ATTEND Internal Medicine
DX: G83.89 Other specified paralytic syndromes (principal); R47.81 Slurred speech; R29.702 NIHSS score 2; I48.91 Unspecified atrial fibrillation; I25.10 Atherosclerotic heart disease of native coronary artery without angina pectoris; I73.9 Peripheral vascular disease, unspecified; J44.9 Chronic obstructive pulmonary disease, unspecified; I65.29 Occlusion and stenosis of unspecified carotid artery; I10 Essential (primary) hypertension; E78.5 Hyperlipidemia, unspecified; Z95.828 Presence of other vascular implants and grafts; Z86.73 Personal history of transient ischemic attack (TIA), and cerebral infarction without residual deficits; F41.1 Generalized anxiety disorder; F33.9 Major depressive disorder, recurrent, unspecified; M47.816 Spondylosis without myelopathy or radiculopathy, lumbar region; G89.4 Chronic pain syndrome; Z79.899 Other long term (current) drug therapy; Z79.01 Long term (current) use of anticoagulants; Z79.82 Long term (current) use of aspirin; Z79.2 Long term (current) use of antibiotics; Z79.51 Long term (current) use of inhaled steroids; Z79.891 Long term (current) use of opiate analgesic; Z88.0 Allergy status to penicillin; Z88.1 Allergy status to other antibiotic agents; Z88.5 Allergy status to narcotic agent

== ENCOUNTER 2022-08-02 10:12 | Inpatient (IN) | payer OTHER ==
[2022-08-02] VITALS (30 sets, daily range): BP systolic 73–265; BP diastolic 46–193
[~2022-08-02] VITALS: Ht 165.1 cm; Wt 47.8 kg
[~2022-08-02 10:12] MED LIST changes: +AMLO1TAB25 PO; +ASPI81CH33 PO; +AZITHROMYCIN 250MG TABLET PO SCH; +METO1TAB87 PO; +METO50TA7 PO
[2022-08-02] MEDS ORDERED: ADENOSINE 6MG 2ML INJECTION As Ordered ONE ×2 (10:18→10:46)
[2022-08-02] MEDS ORDERED: ADENOSINE 6MG 2ML INJECTION IV STA (10:24)
[2022-08-02 10:40] LABS: HEMATOCRIT 44.1 % (36.0-47.0); HEMOGLOBIN 14.5 g/dl (12.0-15.5); MEAN CORPUSCULAR HGB CONC 32.9 g/dl (32.0-36.5); MEAN CORPUSCULAR VOLUME 100.2 fl (80.0-96.0); PLATELET COUNT, AUTOMATED 249 10^3/uL (150-450); WHITE BLOOD COUNT 20.7 10^3/uL (4.0-10.0)
[2022-08-02] MEDS ORDERED: MEROPENEM INJ 1 GM in IV 1 EA IV ONE (10:45)
[2022-08-02 11:03] LABS: INR 1.31; PROTHROMBIN TIME 16.5 SECONDS (12.5-14.5)
[2022-08-02 11:04] LABS: BILIRUBIN,DIRECT 0.4 MG/DL (<0.4); PARTIAL THROMBOPLASTIN TIME 31.1 SECONDS (24.8-34.2)
[2022-08-02 11:05] LABS: THYROID STIMULATING HORMONE 0.192 uIU/ML (0.55-4.78)
[2022-08-02 11:09] LABS: ABG BASE EXCESS -1.5 (-2.0-2.0); ABG HCO3 22.1 MEQ/L (22.0-26.0); ABG PARTIAL PRESSURE CO2 34.2 mmHg (35.0-45.0); ABG PARTIAL PRESSURE O2 107.1 mmHg (75.0-100.0); ABG STANDARD HCO3 23.2 MEQ/L (22.0-26.0); ABG TOTAL CO2 23.1 MEQ/L (23.0-31.0); ABG pH (ARTERIAL) 7.428 UNITS (7.350-7.450)
[2022-08-02 11:12] LABS: BILIRUBIN,TOTAL 0.9 MG/DL (0.3-1.2); CALCIUM LEVEL 8.6 MG/DL (8.3-10.6); CREATININE FOR GFR 1.29 MG/DL (0.55-1.30); FREE T4 1.28 NG/DL (0.89-1.76); GLOMERULAR FILTRATION RATE 44.3 (>45); MB/CK RELATIVE INDEX 0.68 (< OR =4); POTASSIUM SERUM 4.3 MMOL/L (3.5-5.1); TOTAL PROTEIN 6.9 G/DL (5.7-8.2)
[2022-08-02] MEDS ORDERED: NS IV ONE (11:25)
[2022-08-02 11:41] LABS: LYMPHOCYTES 9 % (16-44); METAMYELOCYTES 3 % (0-0); MONOCYTES 4 % (0-5); NEUTROPHILS 59 % (28-66)
[2022-08-02 11:42] LABS: PLATELET ESTIMATE NORMAL (NORMAL)
[2022-08-02] MEDS ORDERED: methylPREDNISolone 125MG 2ML VIAL IV ONE (11:45)
[2022-08-02] MEDS ORDERED: IPRATROPIUM 0.5MG/ALBUTEROL 2.5MG INH SOL UD 3ML (DUONEB) NEB ONE (11:45)
[2022-08-02] MEDS ORDERED: ALBUTEROL SULFATE 2.5MG/0.5ML INH NEB SOLN INH ONE (11:45)
[2022-08-02] MEDS ORDERED: ASPI81CH48 PO (12:07)
[2022-08-02] MEDS ORDERED: HYDR-4571 PO (12:07)
[2022-08-02] MEDS ORDERED: PATIENT COMMENT (12:07)
[2022-08-02] MEDS ORDERED: HOME MED LIST COMPLETE! XX SCH (12:10)
[2022-08-02] MEDS ORDERED: hydrALAZINE 20MG/ML 1ML VIAL IV STA ×2 (12:42→15:15)
[2022-08-02] MEDS ORDERED: LACTATED RINGER'S 1000 ML IV ONE (13:00)
[2022-08-02] MEDS ORDERED: METOPROLOL TART 50 MG TAB PO ONE (13:15)
[2022-08-02] MEDS ORDERED: LevoFLOXacin IV 750 MG in IV 1 EA IV SCH (14:00)
[2022-08-02] MEDS: PANTOPRAZOLE 40MG VIAL IV SCH (14:28)
[2022-08-02] MEDS ORDERED: MIDAZOLAM INJ 2MG/2ML VIAL (J2250 PER 1MG) IV STA ×2 (14:30→16:16)
[2022-08-02] MEDS ORDERED: niCARdipine IV 40 MG in IV 1 EA IV SCH (15:20)
[2022-08-02] MEDS: LR 1,000 ML IV SCH (15:30)
[2022-08-02] MEDS ORDERED: LABETALOL 100MG/20ML VIAL IV STA (15:32)
[2022-08-02] MEDS ORDERED: LABETALOL 100MG/20ML VIAL As Ordered ONE (15:36)
[2022-08-02] MEDS ORDERED: niCARdipine 40MG IN 200ML NACL IV BAG As Ordered ONE (15:36)
[2022-08-02] MEDS ORDERED: MIDAZOLAM INJ 2MG/2ML VIAL (J2250 PER 1MG) As Ordered ONE ×2 (16:01→16:26)
[2022-08-02] MEDS ORDERED: SUCCINYLCHOLINE INJ 200MG/10ML VIAL IV STA (16:14)
[2022-08-02] MEDS ORDERED: ETOMIDATE INJ 20MG/10ML VIAL IV STA (16:14)
[2022-08-02] MEDS ORDERED: LR 1,000 ML IV ONE (16:15)
[2022-08-02] MEDS: MIDAZOLAM 100MG/100ML-0.9%NACL 100 MG in IV 1 EA IV SCH (16:33)
[2022-08-02] MEDS: IPRATROPIUM 0.5MG/ALBUTEROL 2.5MG INH SOL UD 3ML (DUONEB) NEB SCH ×2 (16:45→20:18)
[2022-08-02] MEDS: MORPHINE 2 MG/ML 1ML VIAL IV PRN (17:08)
[2022-08-02 17:42] LABS: ABG BASE EXCESS -3.3 (-2.0-2.0); ABG HCO3 20.7 MEQ/L (22.0-26.0); ABG O2 SATURATION 95.8 % (95.0-99.0); ABG PARTIAL PRESSURE O2 81.1 mmHg (75.0-100.0); ABG STANDARD HCO3 21.7 MEQ/L (22.0-26.0); ABG TOTAL CO2 21.7 MEQ/L (23.0-31.0); ABG pH (ARTERIAL) 7.402 UNITS (7.350-7.450)
[2022-08-02] MEDS ORDERED: METOPROLOL TART 50 MG TAB PO SCH (18:00)
[2022-08-02] MEDS: hydrALAZINE 20MG/ML 1ML VIAL IV SCH ×2 (19:00→22:21)
[2022-08-02] MEDS ORDERED: ADVAIR HFA 230/21MCG INHALER INH SCH (20:00)
[2022-08-02] MEDS: APIXABAN 5 MG TAB (ELIQUIS) PO SCH (21:37)
[2022-08-02] MEDS: CHLORHEXIDINE GLUCONATE 0.12 % 15ML UDC (PERIDEX ORAL RINSE) MT SCH (21:37)
[2022-08-02] MEDS ORDERED: MAG SULF 1GM/100ML (MAG RUN) 1 GM in IV 1 EA IV ONE (22:00)
[2022-08-02] MEDS ORDERED: AMIODARONE HCL 150 MG in IV 1 EA IV ONE (23:00)
[2022-08-02] MEDS ORDERED: AMIODARONE HCL 360 MG in IV 1 EA IV SCH (23:10)
[2022-08-03] VITALS (92 sets, daily range): BP systolic 69–138; BP diastolic 51–82
[2022-08-03] MEDS ORDERED: MIDAZOLAM INJ 2MG/2ML VIAL (J2250 PER 1MG) IV ONE ×2 (02:35→06:30)
[2022-08-03] MEDS ORDERED: SODIUM CHLORIDE 0.9% 1000ML IV ONE (02:35)
[2022-08-03] MEDS: hydrALAZINE 20MG/ML 1ML VIAL IV SCH ×2 (02:40→06:29)
[2022-08-03] MEDS: LR 1,000 ML IV SCH (04:43)
[2022-08-03 04:50] LABS: HEMATOCRIT 36.8 % (36.0-47.0); MEAN CORPUSCULAR HEMOGLOBIN 32.8 pg (27.0-33.0); MEAN CORPUSCULAR HGB CONC 32.6 g/dl (32.0-36.5); MEAN CORPUSCULAR VOLUME 100.5 fl (80.0-96.0); PLATELET COUNT, AUTOMATED 218 10^3/uL (150-450); RED BLOOD COUNT 3.66 10^6/uL (4.00-5.40); WHITE BLOOD COUNT 14.3 10^3/uL (4.0-10.0)
[2022-08-03 05:08] LABS: MAGNESIUM LEVEL 2.1 MG/DL (1.8-2.4)
[2022-08-03] MEDS ORDERED: AMIODARONE HCL 360 MG in IV 1 EA IV SCH ×2 (05:10→09:00)
[2022-08-03 05:13] LABS: ALBUMIN 1.9 G/DL (3.2-5.2); ALKALINE PHOSPHATASE 82 U/L (46-116); ALT/SGPT 24 U/L (7.0-40); AST/SGOT 42 U/L (<34); BILIRUBIN,TOTAL 0.8 MG/DL (0.3-1.2); BLOOD UREA NITROGEN 39 MG/DL (9-23); CARBON DIOXIDE LEVEL 23 MMOL/L (20-31); CHLORIDE LEVEL 114 MMOL/L (98-107); CREATININE FOR GFR 0.81 MG/DL (0.55-1.30); GLOMERULAR FILTRATION RATE > 60.0 (>45); GLUCOSE, FASTING 141 MG/DL (74-106); POTASSIUM SERUM 3.3 MMOL/L (3.5-5.1); SODIUM LEVEL 147 MMOL/L (136-145); TOTAL PROTEIN 5.2 G/DL (5.7-8.2)
[2022-08-03 05:38] LABS: ABG BASE EXCESS 1.1 (-2.0-2.0); ABG HCO3 24.9 MEQ/L (22.0-26.0); ABG PARTIAL PRESSURE CO2 36.6 mmHg (35.0-45.0); ABG PARTIAL PRESSURE O2 108.5 mmHg (75.0-100.0); ABG STANDARD HCO3 25.5 MEQ/L (22.0-26.0)
[2022-08-03] MEDS: KCL 10MEQ/100ML SWI (KRUN) 10 MEQ in IV 1 EA IV SCH ×2 (05:52→06:54)
[2022-08-03] MEDS ORDERED: METOPROLOL 5 MG/5 ML VIAL IV STA (06:14)
[2022-08-03] MEDS ORDERED: NS 500 ML IV ONE (06:30)
[2022-08-03] MEDS: METOPROLOL 5 MG/5 ML VIAL IV SCH ×2 (06:45→06:55)
[2022-08-03] MEDS ORDERED: MIDAZOLAM INJ 2MG/2ML VIAL (J2250 PER 1MG) IV STA (07:06)
[2022-08-03] MEDS: MORPHINE 2 MG/ML 1ML VIAL IV PRN (07:09)
[2022-08-03] MEDS ORDERED: FENTANYL DRIP LOCK BOX KEY 1 EACH XX PRN (07:15)
[2022-08-03] MEDS ORDERED: MIDAZOLAM 100MG/100ML-0.9%NACL 100 MG in IV 1 EA IV SCH (07:21)
[2022-08-03] MEDS: fentaNYL CITRATE/NaCl 1,000 MCG in IV 1 EA IV SCH ×2 (07:32→19:04)
[2022-08-03] MEDS: DIGOXIN INJ 0.5 MG/2 ML AMP IV SCH ×3 (07:47→20:19)
[2022-08-03] MEDS ORDERED: TIOTROPIUM INHALER/CAPSULE (SPIRIVA) INH SCH (08:00)
[2022-08-03] MEDS ORDERED: MIDAZOLAM 5MG/ML 1ML VIAL (J2250 PER 1MG) As Ordered ONE (08:42)
[2022-08-03] MEDS: PANTOPRAZOLE 40MG VIAL IV SCH (08:46)
[2022-08-03] MEDS: APIXABAN 5 MG TAB (ELIQUIS) PO SCH ×2 (08:47→20:20)
[2022-08-03] MEDS: CHLORHEXIDINE GLUCONATE 0.12 % 15ML UDC (PERIDEX ORAL RINSE) MT SCH ×2 (08:47→20:20)
[2022-08-03] MEDS: METOPROLOL TART 25 MG TABLET PO SCH ×2 (08:47→13:07)
[2022-08-03] MEDS ORDERED: AMIODARONE HCL 150 MG/100 ML PREMIXED BAG (NEXTERONE) As Ordered ONE (08:49)
[2022-08-03] MEDS ORDERED: AMIODARONE HCL 150 MG in IV 1 EA IV ONE (08:50)
[2022-08-03] MEDS ORDERED: diltiaZEM 125 MG in NS 100 ML IV SCH (09:00)
[2022-08-03] MEDS ORDERED: ENOXAPARIN 30MG/0.3ML SYRINGE (J1650 PER 10MG) SC SCH (09:00)
[2022-08-03] MEDS ORDERED: MEROPENEM INJ 1 GM in IV 1 EA IV SCH (09:00)
[2022-08-03] MEDS: IPRATROPIUM 0.5MG/ALBUTEROL 2.5MG INH SOL UD 3ML (DUONEB) NEB SCH ×4 (09:04→19:34)
[2022-08-03] MEDS ORDERED: LACTATED RINGER'S 1000 ML IV ONE (09:20)
[2022-08-03] MEDS ORDERED: MIDAZOLAM 5MG/ML 1ML VIAL (J2250 PER 1MG) IV ONE (10:05)
[2022-08-03] MEDS: MIDAZOLAM 100MG/100ML-0.9%NACL 100 MG in IV 1 EA IV SCH ×2 (10:12→23:05)
[2022-08-03] MEDS ORDERED: NOREPINEPHRINE 4MG IN D5 250ML 4 MG in IV 1 EA IV SCH ×2 (12:30)
[2022-08-03] MEDS: propofoL 1,000 MG in IV 1 EA IV SCH (12:42)
[2022-08-03] MEDS: NOREPINEPHRINE 4MG IN D5 250ML 4 MG in IV 1 EA IV SCH ×4 (12:44→20:22)
[2022-08-03 13:07] LABS: ALBUMIN 1.9 G/DL (3.2-5.2); ALKALINE PHOSPHATASE 73 U/L (46-116); ALT/SGPT 19 U/L (7.0-40); AST/SGOT 29 U/L (<34); BILIRUBIN,TOTAL 0.5 MG/DL (0.3-1.2); BLOOD UREA NITROGEN 29 MG/DL (9-23); CALCIUM LEVEL 8.4 MG/DL (8.3-10.6); CARBON DIOXIDE LEVEL 25 MMOL/L (20-31); CHLORIDE LEVEL 114 MMOL/L (98-107); CREATININE FOR GFR 0.72 MG/DL (0.55-1.30); GLOMERULAR FILTRATION RATE > 60.0 (>45); GLUCOSE, FASTING 158 MG/DL (74-106); POTASSIUM SERUM 3.3 MMOL/L (3.5-5.1); SODIUM LEVEL 147 MMOL/L (136-145); TOTAL PROTEIN 5.4 G/DL (5.7-8.2)
[2022-08-03] MEDS: KCL 20MEQ IN 100ML SWI (KRUN) 20 MEQ in IV 1 EA IV SCH ×4 (13:57→15:08)
[2022-08-03] MEDS ORDERED: KCL 20MEQ IN 100ML SWI (KRUN) 20 MEQ in IV 1 EA IV ONE ×2 (14:45)
[2022-08-03] MEDS: AMIODARONE HCL 360 MG in IV 1 EA IV SCH (14:51)
[2022-08-03] MEDS: cefTRIAXone SOD 1 GM in D5W MINI-BAG PLUS 50 ML IV SCH (16:29)
[2022-08-04] VITALS (88 sets, daily range): BP systolic 70–121; BP diastolic 50–85
[2022-08-04] MEDS ORDERED: ACETAMINOPHEN 1000MG 100ML IV BAG IV ONE (01:00)
[2022-08-04] MEDS: AMIODARONE HCL 360 MG in IV 1 EA IV SCH (02:43)
[2022-08-04] MEDS: propofoL 1,000 MG in IV 1 EA IV SCH ×2 (04:47→12:03)
[2022-08-04 04:56] LABS: HEMATOCRIT 34.3 % (36.0-47.0); HEMOGLOBIN 11.3 g/dl (12.0-15.5); MEAN CORPUSCULAR HEMOGLOBIN 33.4 pg (27.0-33.0); MEAN CORPUSCULAR HGB CONC 32.9 g/dl (32.0-36.5); MEAN CORPUSCULAR VOLUME 101.5 fl (80.0-96.0); PLATELET COUNT, AUTOMATED 319 10^3/uL (150-450); RED BLOOD COUNT 3.38 10^6/uL (4.00-5.40); WHITE BLOOD COUNT 21.7 10^3/uL (4.0-10.0)
[2022-08-04 05:36] LABS: ALBUMIN 1.6 G/DL (3.2-5.2); ALKALINE PHOSPHATASE 81 U/L (46-116); ALT/SGPT 20 U/L (7.0-40); AST/SGOT 27 U/L (<34); BILIRUBIN,TOTAL 0.3 MG/DL (0.3-1.2); BLOOD UREA NITROGEN 33 MG/DL (9-23); CALCIUM LEVEL 8.3 MG/DL (8.3-10.6); CARBON DIOXIDE LEVEL 25 MMOL/L (20-31); CHLORIDE LEVEL 112 MMOL/L (98-107); CREATININE FOR GFR 0.75 MG/DL (0.55-1.30); GLOMERULAR FILTRATION RATE > 60.0 (>45); GLUCOSE, FASTING 153 MG/DL (74-106); SODIUM LEVEL 145 MMOL/L (136-145); TOTAL PROTEIN 4.8 G/DL (5.7-8.2)
[2022-08-04 06:00] LABS: ABG HCO3 25.1 MEQ/L (22.0-26.0); ABG O2 SATURATION 98.6 % (95.0-99.0); ABG PARTIAL PRESSURE CO2 38.1 mmHg (35.0-45.0); ABG PARTIAL PRESSURE O2 133.7 mmHg (75.0-100.0); ABG STANDARD HCO3 25.4 MEQ/L (22.0-26.0); ABG TOTAL CO2 26.2 MEQ/L (23.0-31.0); ABG pH (ARTERIAL) 7.436 UNITS (7.350-7.450)
[2022-08-04] MEDS: IPRATROPIUM 0.5MG/ALBUTEROL 2.5MG INH SOL UD 3ML (DUONEB) NEB SCH ×4 (08:11→20:17)
[2022-08-04] MEDS: PANTOPRAZOLE 40MG VIAL IV SCH (08:48)
[2022-08-04] MEDS: CHLORHEXIDINE GLUCONATE 0.12 % 15ML UDC (PERIDEX ORAL RINSE) MT SCH ×2 (08:48→20:08)
[2022-08-04] MEDS: APIXABAN 5 MG TAB (ELIQUIS) PO SCH ×2 (08:48→20:08)
[2022-08-04] MEDS: DIGOXIN INJ 0.5 MG/2 ML AMP IV SCH (08:51)
[2022-08-04] MEDS ORDERED: VANCOMYCIN HCL 1,000 MG, VIAL MATE ADAPTER 1 EACH in NS 250 ML IV ONE (09:00)
[2022-08-04 10:56] LABS: PHOSPHORUS LEVEL 2.9 MG/DL (2.4-5.1)
[2022-08-04] MEDS: fentaNYL CITRATE/NaCl 1,000 MCG in IV 1 EA IV SCH ×2 (11:51→12:28)
[2022-08-04] MEDS: VANCOMYCIN HCL 750 MG, VIAL MATE ADAPTER 1 EACH in D5W 250 ML IV SCH (13:51)
[2022-08-04] MEDS: NOREPINEPHRINE 4MG IN D5 250ML 4 MG in IV 1 EA IV SCH ×2 (13:52)
[2022-08-04] MEDS: cefTRIAXone SOD 1 GM in D5W MINI-BAG PLUS 50 ML IV SCH (16:33)
[2022-08-04] MEDS: MIDAZOLAM 100MG/100ML-0.9%NACL 100 MG in IV 1 EA IV SCH ×2 (18:16→21:43)
[2022-08-04] MEDS: AMIODARONE 200 MG TAB (PACERONE) PO SCH (20:08)
[2022-08-04 23:04] LABS: MAGNESIUM LEVEL 1.7 MG/DL (1.8-2.4)
[2022-08-04 23:10] LABS: BLOOD UREA NITROGEN 26 MG/DL (9-23); CALCIUM LEVEL 8.1 MG/DL (8.3-10.6); CARBON DIOXIDE LEVEL 28 MMOL/L (20-31); CHLORIDE LEVEL 111 MMOL/L (98-107); CREATININE FOR GFR 0.59 MG/DL (0.55-1.30); GLOMERULAR FILTRATION RATE > 60.0 (>45); GLUCOSE, FASTING 102 MG/DL (74-106); POTASSIUM SERUM 4.1 MMOL/L (3.5-5.1); SODIUM LEVEL 145 MMOL/L (136-145)
[2022-08-05] VITALS (45 sets, daily range): BP systolic 96–172; BP diastolic 53–82
[2022-08-05] MEDS: propofoL 1,000 MG in IV 1 EA IV SCH ×2 (00:35→12:35)
[2022-08-05] MEDS ORDERED: MAG SULF 1GM/100ML (MAG RUN) 1 GM in IV 1 EA IV ONE (01:00)
[2022-08-05] MEDS: VANCOMYCIN HCL 750 MG, VIAL MATE ADAPTER 1 EACH in D5W 250 ML IV SCH ×2 (02:19→15:47)
[2022-08-05 05:35] LABS: HEMOGLOBIN 10.7 g/dl (12.0-15.5); MEAN CORPUSCULAR HGB CONC 32.4 g/dl (32.0-36.5); MEAN CORPUSCULAR VOLUME 101.9 fl (80.0-96.0); PLATELET COUNT, AUTOMATED 316 10^3/uL (150-450); RED BLOOD COUNT 3.24 10^6/uL (4.00-5.40); WHITE BLOOD COUNT 16.6 10^3/uL (4.0-10.0)
[2022-08-05 05:46] LABS: INR 1.22; PROTHROMBIN TIME 15.7 SECONDS (12.5-14.5)
[2022-08-05 05:55] LABS: ALBUMIN 1.5 G/DL (3.2-5.2); ALKALINE PHOSPHATASE 75 U/L (46-116); ALT/SGPT 25 U/L (7.0-40); AST/SGOT 37 U/L (<34); BILIRUBIN,TOTAL 0.3 MG/DL (0.3-1.2); BLOOD UREA NITROGEN 25 MG/DL (9-23); CALCIUM LEVEL 8.2 MG/DL (8.3-10.6); CARBON DIOXIDE LEVEL 30 MMOL/L (20-31); CHLORIDE LEVEL 110 MMOL/L (98-107); CREATININE FOR GFR 0.55 MG/DL (0.55-1.30); GLOMERULAR FILTRATION RATE > 60.0 (>45); GLUCOSE, FASTING 106 MG/DL (74-106); POTASSIUM SERUM 3.7 MMOL/L (3.5-5.1); SODIUM LEVEL 143 MMOL/L (136-145); TOTAL PROTEIN 4.6 G/DL (5.7-8.2)
[2022-08-05 06:08] LABS: ABG BASE EXCESS 3.7 (-2.0-2.0); ABG HCO3 27.7 MEQ/L (22.0-26.0); ABG O2 SATURATION 97.9 % (95.0-99.0); ABG PARTIAL PRESSURE CO2 39.6 mmHg (35.0-45.0); ABG PARTIAL PRESSURE O2 103.7 mmHg (75.0-100.0); ABG STANDARD HCO3 27.8 MEQ/L (22.0-26.0); ABG TOTAL CO2 28.9 MEQ/L (23.0-31.0); ABG pH (ARTERIAL) 7.463 UNITS (7.350-7.450)
[2022-08-05 06:24] LABS: MAGNESIUM LEVEL 1.8 MG/DL (1.8-2.4)
[2022-08-05] MEDS ORDERED: ASPIRIN 300 MG SUPP PR ONE (07:00)
[2022-08-05] MEDS: fentaNYL CITRATE/NaCl 1,000 MCG in IV 1 EA IV SCH ×2 (07:15→16:27)
[2022-08-05] MEDS: IPRATROPIUM 0.5MG/ALBUTEROL 2.5MG INH SOL UD 3ML (DUONEB) NEB SCH ×2 (07:32→15:26)
[2022-08-05] MEDS: APIXABAN 5 MG TAB (ELIQUIS) PO SCH ×2 (08:52→20:23)
[2022-08-05] MEDS: DIGOXIN INJ 0.5 MG/2 ML AMP IV SCH (08:52)
[2022-08-05] MEDS: AMIODARONE 200 MG TAB (PACERONE) PO SCH ×2 (08:52→20:23)
[2022-08-05] MEDS: PANTOPRAZOLE 40MG VIAL IV SCH (08:52)
[2022-08-05] MEDS: CHLORHEXIDINE GLUCONATE 0.12 % 15ML UDC (PERIDEX ORAL RINSE) MT SCH ×2 (08:53→20:12)
[2022-08-05] MEDS ORDERED: MIDAZOLAM INJ 2MG/2ML VIAL (J2250 PER 1MG) As Ordered ONE (12:07)
[2022-08-05] MEDS ORDERED: MIDAZOLAM INJ 2MG/2ML VIAL (J2250 PER 1MG) IV STA (12:30)
[2022-08-05] MEDS ORDERED: MIDAZOLAM INJ 2MG/2ML VIAL (J2250 PER 1MG) IV PRN (16:45)
[2022-08-05] MEDS: cefTRIAXone SOD 1 GM in D5W MINI-BAG PLUS 50 ML IV SCH (17:54)
[2022-08-06] VITALS (24 sets, daily range): BP systolic 119–185; BP diastolic 58–86
[2022-08-06] MEDS: IPRATROPIUM 0.5MG/ALBUTEROL 2.5MG INH SOL UD 3ML (DUONEB) NEB SCH ×3 (00:14→15:16)
[2022-08-06] MEDS: VANCOMYCIN HCL 750 MG, VIAL MATE ADAPTER 1 EACH in D5W 250 ML IV SCH (01:13)
[2022-08-06] MEDS: MORPHINE 2 MG/ML 1ML VIAL IV PRN ×3 (01:13→23:41)
[2022-08-06 05:14] LABS: HEMATOCRIT 31.9 % (36.0-47.0); HEMOGLOBIN 10.6 g/dl (12.0-15.5); MEAN CORPUSCULAR HEMOGLOBIN 33.4 pg (27.0-33.0); MEAN CORPUSCULAR HGB CONC 33.2 g/dl (32.0-36.5); MEAN CORPUSCULAR VOLUME 100.6 fl (80.0-96.0); PLATELET COUNT, AUTOMATED 368 10^3/uL (150-450); RED BLOOD COUNT 3.17 10^6/uL (4.00-5.40)
[2022-08-06 05:40] LABS: ABG BASE EXCESS 6.2 (-2.0-2.0); ABG HCO3 29.3 MEQ/L (22.0-26.0); ABG O2 SATURATION 96.4 % (95.0-99.0); ABG PARTIAL PRESSURE CO2 36.6 mmHg (35.0-45.0); ABG PARTIAL PRESSURE O2 79.6 mmHg (75.0-100.0); ABG STANDARD HCO3 30.1 MEQ/L (22.0-26.0); ABG TOTAL CO2 30.4 MEQ/L (23.0-31.0); ABG pH (ARTERIAL) 7.521 UNITS (7.350-7.450)
[2022-08-06 05:41] LABS: ALBUMIN 1.8 G/DL (3.2-5.2); ALKALINE PHOSPHATASE 100 U/L (46-116); ALT/SGPT 46 U/L (7.0-40); AST/SGOT 59 U/L (<34); BILIRUBIN,TOTAL 0.4 MG/DL (0.3-1.2); BLOOD UREA NITROGEN 18 MG/DL (9-23); CALCIUM LEVEL 7.9 MG/DL (8.3-10.6); CARBON DIOXIDE LEVEL 30 MMOL/L (20-31); CHLORIDE LEVEL 106 MMOL/L (98-107); CREATININE FOR GFR 0.51 MG/DL (0.55-1.30); GLOMERULAR FILTRATION RATE > 60.0 (>45); GLUCOSE, FASTING 133 MG/DL (74-106); POTASSIUM SERUM 3.5 MMOL/L (3.5-5.1); SODIUM LEVEL 141 MMOL/L (136-145); TOTAL PROTEIN 5.2 G/DL (5.7-8.2)
[2022-08-06] MEDS: APIXABAN 5 MG TAB (ELIQUIS) PO SCH ×2 (08:24→20:33)
[2022-08-06] MEDS: CHLORHEXIDINE GLUCONATE 0.12 % 15ML UDC (PERIDEX ORAL RINSE) MT SCH ×2 (08:24→20:05)
[2022-08-06] MEDS: AMIODARONE 200 MG TAB (PACERONE) PO SCH (08:24)
[2022-08-06] MEDS ORDERED: POTASSIUM CHLORIDE 10MEQ SR TABLET PO ONE (08:25)
[2022-08-06] MEDS: PANTOPRAZOLE 40MG VIAL IV SCH (08:25)
[2022-08-06] MEDS: DIGOXIN INJ 0.5 MG/2 ML AMP IV SCH (08:25)
[2022-08-06] MEDS ORDERED: POTASSIUM CHLORIDE 10% LIQ 20MEQ/15ML UDC PO ONE (09:00)
[2022-08-06] MEDS ORDERED: ACETAMINOPHEN 1000MG 100ML IV BAG IV ONE (13:00)
[2022-08-06] MEDS: VANCOMYCIN HCL 1,000 MG, VIAL MATE ADAPTER 1 EACH in D5W 250 ML IV SCH (14:25)
[2022-08-06] MEDS: cefTRIAXone SOD 1 GM in D5W MINI-BAG PLUS 50 ML IV SCH (17:46)
[2022-08-06] MEDS: METOPROLOL 5 MG/5 ML VIAL IV SCH (20:33)
[2022-08-06] MEDS ORDERED: ENOXAPARIN 60MG/0.6ML SYRINGE (J1650 PER 10MG) SC ONE (21:00)
[2022-08-07] VITALS (22 sets, daily range): BP systolic 143–186; BP diastolic 63–82
[2022-08-07] MEDS: VANCOMYCIN HCL 1,000 MG, VIAL MATE ADAPTER 1 EACH in D5W 250 ML IV SCH (02:02)
[2022-08-07] MEDS: MORPHINE 2 MG/ML 1ML VIAL IV PRN ×2 (02:02→06:04)
[2022-08-07] MEDS: METOPROLOL 5 MG/5 ML VIAL IV SCH (02:02)
[2022-08-07] MEDS: IPRATROPIUM 0.5MG/ALBUTEROL 2.5MG INH SOL UD 3ML (DUONEB) NEB SCH ×4 (02:42→19:17)
[2022-08-07 05:35] LABS: HEMATOCRIT 34.5 % (36.0-47.0); HEMOGLOBIN 11.3 g/dl (12.0-15.5); MEAN CORPUSCULAR HGB CONC 32.8 g/dl (32.0-36.5); MEAN CORPUSCULAR VOLUME 100.9 fl (80.0-96.0); PLATELET COUNT, AUTOMATED 411 10^3/uL (150-450); RED BLOOD COUNT 3.42 10^6/uL (4.00-5.40); WHITE BLOOD COUNT 13.6 10^3/uL (4.0-10.0)
[2022-08-07 06:09] LABS: ALBUMIN 1.6 G/DL (3.2-5.2); ALKALINE PHOSPHATASE 100 U/L (46-116); ALT/SGPT 47 U/L (7.0-40); AST/SGOT 47 U/L (<34); BILIRUBIN,TOTAL 0.7 MG/DL (0.3-1.2); BLOOD UREA NITROGEN 17 MG/DL (9-23); CALCIUM LEVEL 8.1 MG/DL (8.3-10.6); CARBON DIOXIDE LEVEL 29 MMOL/L (20-31); CHLORIDE LEVEL 104 MMOL/L (98-107); CREATININE FOR GFR 0.46 MG/DL (0.55-1.30); GLOMERULAR FILTRATION RATE > 60.0 (>45); GLUCOSE, FASTING 88 MG/DL (74-106); POTASSIUM SERUM 3.9 MMOL/L (3.5-5.1); SODIUM LEVEL 141 MMOL/L (136-145); TOTAL PROTEIN 4.9 G/DL (5.7-8.2)
[2022-08-07] MEDS ORDERED: IPRATROPIUM 0.06% NASAL SPRAY 15 ML (ATROVENT) PRN (08:15)
[2022-08-07] MEDS ORDERED: ASPIRIN 81MG CHEW TABLET PO PRN (08:15)
[2022-08-07] MEDS ORDERED: SENNA 8.6 MG TAB (SENOKOT) PO PRN (08:15)
[2022-08-07] MEDS: AMIODARONE 200 MG TAB (PACERONE) PO SCH ×2 (09:08→20:18)
[2022-08-07] MEDS: OMEPRAZOLE 20MG CAP PO SCH (09:08)
[2022-08-07] MEDS: METOPROLOL TART 25 MG TABLET PO SCH ×2 (09:09→20:18)
[2022-08-07] MEDS: APIXABAN 5 MG TAB (ELIQUIS) PO SCH ×2 (09:23→20:18)
[2022-08-07] MEDS: NORCO, ANEXSIA 5/325MG TABLET (HYDROcodone/ACETAMINOPHEN) PO PRN ×2 (10:33→20:29)
[2022-08-07] MEDS: LINEZOLID 600MG TABLET (ZYVOX) PO SCH ×2 (12:12→20:18)
[2022-08-07] MEDS ORDERED: IPRATROPIUM 0.5MG/ALBUTEROL 2.5MG INH SOL UD 3ML (DUONEB) NEB PRN (13:00)
[2022-08-07] MEDS ORDERED: hydrALAZINE 20MG/ML 1ML VIAL IV PRN (15:15)
[2022-08-07] MEDS: cefTRIAXone SOD 1 GM in D5W MINI-BAG PLUS 50 ML IV SCH (18:05)
[2022-08-07] MEDS: ATORVASTATIN 20 MG TAB PO SCH (20:18)
[2022-08-08] VITALS (24 sets, daily range): BP systolic 112–180; BP diastolic 57–90
[2022-08-08] MEDS: IPRATROPIUM 0.5MG/ALBUTEROL 2.5MG INH SOL UD 3ML (DUONEB) NEB SCH ×4 (02:07→20:20)
[2022-08-08] MEDS: NORCO, ANEXSIA 5/325MG TABLET (HYDROcodone/ACETAMINOPHEN) PO PRN (02:31)
[2022-08-08 06:05] LABS: HEMOGLOBIN 12.1 g/dl (12.0-15.5); MEAN CORPUSCULAR HEMOGLOBIN 32.4 pg (27.0-33.0); MEAN CORPUSCULAR HGB CONC 32.7 g/dl (32.0-36.5); MEAN CORPUSCULAR VOLUME 98.9 fl (80.0-96.0); PLATELET COUNT, AUTOMATED 487 10^3/uL (150-450); RED BLOOD COUNT 3.74 10^6/uL (4.00-5.40); WHITE BLOOD COUNT 11.8 10^3/uL (4.0-10.0)
[2022-08-08 06:37] LABS: ALBUMIN 1.9 G/DL (3.2-5.2); ALKALINE PHOSPHATASE 96 U/L (46-116); ALT/SGPT 34 U/L (7.0-40); AST/SGOT 29 U/L (<34); BILIRUBIN,TOTAL 0.6 MG/DL (0.3-1.2); BLOOD UREA NITROGEN 19 MG/DL (9-23); CALCIUM LEVEL 8.1 MG/DL (8.3-10.6); CARBON DIOXIDE LEVEL 23 MMOL/L (20-31); CHLORIDE LEVEL 104 MMOL/L (98-107); CREATININE FOR GFR 0.47 MG/DL (0.55-1.30); GLOMERULAR FILTRATION RATE > 60.0 (>45); GLUCOSE, FASTING 90 MG/DL (74-106); POTASSIUM SERUM 3.9 MMOL/L (3.5-5.1); SODIUM LEVEL 140 MMOL/L (136-145); TOTAL PROTEIN 4.8 G/DL (5.7-8.2)
[2022-08-08] MEDS: OMEPRAZOLE 20MG CAP PO SCH (08:36)
[2022-08-08] MEDS: AMIODARONE 200 MG TAB (PACERONE) PO SCH (08:37)
[2022-08-08] MEDS: LINEZOLID 600MG TABLET (ZYVOX) PO SCH ×2 (08:37→20:25)
[2022-08-08] MEDS: METOPROLOL TART 50 MG TAB PO SCH ×2 (08:37→20:26)
[2022-08-08] MEDS: APIXABAN 5 MG TAB (ELIQUIS) PO SCH ×2 (08:37→20:25)
[2022-08-08] MEDS ORDERED: amLODIPine 5 MG TAB PO SCH (09:00)
[2022-08-08 09:28] LABS: CHOLESTEROL LEVEL 120 MG/DL (<200); HDL CHOLESTEROL 30.7 MG/DL (>40); LDL CHOLESTEROL 63.7 MG/DL (<100); NON-HDL-C 89 MG/DL; TRIGLYCERIDES LEVEL 128 MG/DL (<150)
[2022-08-08] MEDS ORDERED: amLODIPine 5 MG TAB PO ONE (14:40)
[2022-08-08 15:39] LABS: ABG BASE EXCESS 5.7 (-2.0-2.0); ABG HCO3 27.9 MEQ/L (22.0-26.0); ABG PARTIAL PRESSURE CO2 33.1 mmHg (35.0-45.0); ABG PARTIAL PRESSURE O2 43.9 mmHg (75.0-100.0); ABG STANDARD HCO3 29.2 MEQ/L (22.0-26.0); ABG TOTAL CO2 28.9 MEQ/L (23.0-31.0); ABG pH (ARTERIAL) 7.543 UNITS (7.350-7.450)
[2022-08-08] MEDS ORDERED: FUROSEMIDE 20MG/2ML VIAL As Ordered ONE (15:45)
[2022-08-08] MEDS ORDERED: FUROSEMIDE 20MG/2ML VIAL IV ONE (15:45)
[2022-08-08] MEDS ORDERED: methylPREDNISolone 40MG 1ML VIAL IV ONE (15:55)
[2022-08-08] MEDS ORDERED: ISOVUE-370 76% 100ML VIAL As Ordered ONE (16:11)
[2022-08-08 17:22] LABS: ABG BASE EXCESS 4.4 (-2.0-2.0); ABG HCO3 27.4 MEQ/L (22.0-26.0); ABG O2 SATURATION 95.9 % (95.0-99.0); ABG PARTIAL PRESSURE CO2 35.5 mmHg (35.0-45.0); ABG PARTIAL PRESSURE O2 77.6 mmHg (75.0-100.0); ABG STANDARD HCO3 28.4 MEQ/L (22.0-26.0); ABG TOTAL CO2 28.5 MEQ/L (23.0-31.0); ABG pH (ARTERIAL) 7.505 UNITS (7.350-7.450)
[2022-08-08] MEDS: ATORVASTATIN 20 MG TAB PO SCH (20:25)
[2022-08-08] MEDS: guaiFENesin ER 600 MG TAB PO SCH (20:26)
[2022-08-09] VITALS (21 sets, daily range): BP systolic 115–183; BP diastolic 54–104
[2022-08-09] MEDS: IPRATROPIUM 0.5MG/ALBUTEROL 2.5MG INH SOL UD 3ML (DUONEB) NEB SCH ×4 (02:25→19:24)
[2022-08-09 05:23] LABS: HEMATOCRIT 41.3 % (36.0-47.0); HEMOGLOBIN 13.4 g/dl (12.0-15.5); MEAN CORPUSCULAR HEMOGLOBIN 32.4 pg (27.0-33.0); MEAN CORPUSCULAR HGB CONC 32.4 g/dl (32.0-36.5); MEAN CORPUSCULAR VOLUME 99.8 fl (80.0-96.0); RED BLOOD COUNT 4.14 10^6/uL (4.00-5.40); WHITE BLOOD COUNT 16.3 10^3/uL (4.0-10.0)
[2022-08-09 05:24] LABS: PLATELET COUNT, AUTOMATED 676 10^3/uL (150-450)
[2022-08-09 05:27] LABS: ALBUMIN 2.2 G/DL (3.2-5.2); ALKALINE PHOSPHATASE 110 U/L (46-116); ALT/SGPT 35 U/L (7.0-40); AST/SGOT 25 U/L (<34); BILIRUBIN,TOTAL 0.5 MG/DL (0.3-1.2); BLOOD UREA NITROGEN 23 MG/DL (9-23); CALCIUM LEVEL 8.8 MG/DL (8.3-10.6); CARBON DIOXIDE LEVEL 26 MMOL/L (20-31); CHLORIDE LEVEL 103 MMOL/L (98-107); CREATININE FOR GFR 0.61 MG/DL (0.55-1.30); GLOMERULAR FILTRATION RATE > 60.0 (>45); GLUCOSE, FASTING 124 MG/DL (74-106); POTASSIUM SERUM 4.7 MMOL/L (3.5-5.1); SODIUM LEVEL 141 MMOL/L (136-145); TOTAL PROTEIN 5.9 G/DL (5.7-8.2)
[2022-08-09 05:49] LABS: ABG HCO3 26.6 MEQ/L (22.0-26.0); ABG O2 SATURATION 96.9 % (95.0-99.0); ABG PARTIAL PRESSURE CO2 33.5 mmHg (35.0-45.0); ABG PARTIAL PRESSURE O2 84.2 mmHg (75.0-100.0); ABG STANDARD HCO3 28.1 MEQ/L (22.0-26.0); ABG TOTAL CO2 27.6 MEQ/L (23.0-31.0); ABG pH (ARTERIAL) 7.517 UNITS (7.350-7.450)
[2022-08-09] MEDS: LINEZOLID 600MG TABLET (ZYVOX) PO SCH ×2 (08:18→20:54)
[2022-08-09] MEDS: METOPROLOL TART 50 MG TAB PO SCH ×2 (08:18→20:54)
[2022-08-09] MEDS: APIXABAN 5 MG TAB (ELIQUIS) PO SCH ×2 (08:18→20:54)
[2022-08-09] MEDS ORDERED: AZTREONAM 1 GM in D5W MINI-BAG PLUS 50 ML IV SCH (08:30)
[2022-08-09] MEDS ORDERED: hydrALAZINE 20MG/ML 1ML VIAL IV ONE (09:10)
[2022-08-09] MEDS: guaiFENesin ER 600 MG TAB PO SCH ×2 (09:13→20:54)
[2022-08-09] MEDS: OMEPRAZOLE 20MG CAP PO SCH (09:13)
[2022-08-09] MEDS ORDERED: FUROSEMIDE 20MG/2ML VIAL IV ONE (10:55)
[2022-08-09] MEDS: AZTREONAM 2 GM in D5W MINI-BAG PLUS 100 ML IV SCH ×2 (11:43→20:53)
[2022-08-09] MEDS: ATORVASTATIN 20 MG TAB PO SCH (20:54)
[2022-08-10] VITALS (24 sets, daily range): BP systolic 113–176; BP diastolic 56–81
[2022-08-10] MEDS: IPRATROPIUM 0.5MG/ALBUTEROL 2.5MG INH SOL UD 3ML (DUONEB) NEB SCH ×4 (02:14→19:56)
[2022-08-10] MEDS: AZTREONAM 2 GM in D5W MINI-BAG PLUS 100 ML IV SCH ×3 (03:42→20:21)
[2022-08-10 05:27] LABS: BASO % 0.2 % (0.0-1.0); EOS % 0.1 % (0.0-3.0); HEMATOCRIT 37.6 % (36.0-47.0); HEMOGLOBIN 12.3 g/dl (12.0-15.5); LYMPH # 1.2 10^3/uL (1.5-5.0); LYMPH % 8.3 % (24.0-44.0); MEAN CORPUSCULAR HEMOGLOBIN 32.6 pg (27.0-33.0); MEAN CORPUSCULAR HGB CONC 32.7 g/dl (32.0-36.5); MEAN CORPUSCULAR VOLUME 99.7 fl (80.0-96.0); MONO # 0.8 10^3/uL (0.0-0.8); MONO % 5.4 % (2.0-8.0); NEUTROPHILS # 11.9 10^3/uL (1.5-8.5); NEUTROPHILS % 84.2 % (36.0-66.0); PLATELET COUNT, AUTOMATED 610 10^3/uL (150-450); RED BLOOD COUNT 3.77 10^6/uL (4.00-5.40); WHITE BLOOD COUNT 14.2 10^3/uL (4.0-10.0)
[2022-08-10 06:04] LABS: ABG BASE EXCESS 7.6 (-2.0-2.0); ABG HCO3 30.5 MEQ/L (22.0-26.0); ABG O2 SATURATION 90.5 % (95.0-99.0); ABG PARTIAL PRESSURE CO2 36.8 mmHg (35.0-45.0); ABG PARTIAL PRESSURE O2 57.5 mmHg (75.0-100.0); ABG STANDARD HCO3 31.2 MEQ/L (22.0-26.0); ABG TOTAL CO2 31.6 MEQ/L (23.0-31.0); ABG pH (ARTERIAL) 7.536 UNITS (7.350-7.450)
[2022-08-10 06:07] LABS: ALBUMIN 1.9 G/DL (3.2-5.2); ALKALINE PHOSPHATASE 99 U/L (46-116); ALT/SGPT 72 U/L (7.0-40); AST/SGOT 87 U/L (<34); BILIRUBIN,TOTAL 0.5 MG/DL (0.3-1.2); BLOOD UREA NITROGEN 23 MG/DL (9-23); CALCIUM LEVEL 7.9 MG/DL (8.3-10.6); CARBON DIOXIDE LEVEL 30 MMOL/L (20-31); CHLORIDE LEVEL 102 MMOL/L (98-107); GLOMERULAR FILTRATION RATE > 60.0 (>45); GLUCOSE, FASTING 109 MG/DL (74-106); POTASSIUM SERUM 3.3 MMOL/L (3.5-5.1); SODIUM LEVEL 141 MMOL/L (136-145); TOTAL PROTEIN 5.2 G/DL (5.7-8.2)
[2022-08-10] MEDS: KCL 10MEQ/100ML SWI (KRUN) 10 MEQ in IV 1 EA IV SCH ×2 (06:32→07:52)
[2022-08-10] MEDS: NORCO, ANEXSIA 5/325MG TABLET (HYDROcodone/ACETAMINOPHEN) PO PRN (06:35)
[2022-08-10 06:50] LABS: MAGNESIUM LEVEL 1.7 MG/DL (1.8-2.4)
[2022-08-10] MEDS: OMEPRAZOLE 20MG CAP PO SCH (07:53)
[2022-08-10] MEDS: guaiFENesin ER 600 MG TAB PO SCH ×2 (07:53→20:21)
[2022-08-10] MEDS: METOPROLOL TART 50 MG TAB PO SCH ×2 (07:53→20:21)
[2022-08-10] MEDS: LINEZOLID 600MG TABLET (ZYVOX) PO SCH ×2 (07:54→20:21)
[2022-08-10] MEDS: APIXABAN 5 MG TAB (ELIQUIS) PO SCH ×2 (07:54→20:21)
[2022-08-10] MEDS ORDERED: MAGNESIUM OXIDE 400MG TAB (MAG-OX) PO ONE (07:55)
[2022-08-10] MEDS: ATORVASTATIN 20 MG TAB PO SCH (20:21)
[2022-08-11] VITALS (22 sets, daily range): BP systolic 87–179; BP diastolic 52–83
[2022-08-11] MEDS: IPRATROPIUM 0.5MG/ALBUTEROL 2.5MG INH SOL UD 3ML (DUONEB) NEB SCH ×4 (01:02→19:40)
[2022-08-11] MEDS: AZTREONAM 2 GM in D5W MINI-BAG PLUS 100 ML IV SCH ×3 (04:09→20:07)
[2022-08-11 04:33] LABS: BASO % 0.3 % (0.0-1.0); EOS % 0.1 % (0.0-3.0); HEMATOCRIT 37.5 % (36.0-47.0); HEMOGLOBIN 12.2 g/dl (12.0-15.5); LYMPH # 1.2 10^3/uL (1.5-5.0); LYMPH % 7.8 % (24.0-44.0); MEAN CORPUSCULAR HEMOGLOBIN 32.5 pg (27.0-33.0); MEAN CORPUSCULAR HGB CONC 32.5 g/dl (32.0-36.5); MONO # 0.7 10^3/uL (0.0-0.8); MONO % 4.5 % (2.0-8.0); NEUTROPHILS # 13.1 10^3/uL (1.5-8.5); NEUTROPHILS % 85.9 % (36.0-66.0); PLATELET COUNT, AUTOMATED 583 10^3/uL (150-450); RED BLOOD COUNT 3.75 10^6/uL (4.00-5.40); WHITE BLOOD COUNT 15.2 10^3/uL (4.0-10.0)
[2022-08-11 05:14] LABS: ALBUMIN 2.1 G/DL (3.2-5.2); ALKALINE PHOSPHATASE 105 U/L (46-116); ALT/SGPT 62 U/L (7.0-40); AST/SGOT 41 U/L (<34); BILIRUBIN,TOTAL 0.6 MG/DL (0.3-1.2); BLOOD UREA NITROGEN 22 MG/DL (9-23); CARBON DIOXIDE LEVEL 26 MMOL/L (20-31); CHLORIDE LEVEL 105 MMOL/L (98-107); CREATININE FOR GFR 0.57 MG/DL (0.55-1.30); GLOMERULAR FILTRATION RATE > 60.0 (>45); GLUCOSE, FASTING 96 MG/DL (74-106); POTASSIUM SERUM 3.2 MMOL/L (3.5-5.1); SODIUM LEVEL 140 MMOL/L (136-145); TOTAL PROTEIN 5.5 G/DL (5.7-8.2)
[2022-08-11] MEDS: NORCO, ANEXSIA 5/325MG TABLET (HYDROcodone/ACETAMINOPHEN) PO PRN ×3 (05:53→20:16)
[2022-08-11] MEDS: guaiFENesin ER 600 MG TAB PO SCH ×2 (09:16→20:16)
[2022-08-11] MEDS: APIXABAN 5 MG TAB (ELIQUIS) PO SCH ×2 (09:16→20:08)
[2022-08-11] MEDS: OMEPRAZOLE 20MG CAP PO SCH (09:16)
[2022-08-11] MEDS: LINEZOLID 600MG TABLET (ZYVOX) PO SCH ×2 (09:16→20:17)
[2022-08-11] MEDS: METOPROLOL TART 50 MG TAB PO SCH ×2 (09:17→20:09)
[2022-08-11] MEDS ORDERED: POTASSIUM CHLORIDE 10MEQ SR TABLET PO ONE (10:00)
[2022-08-11] MEDS: ATORVASTATIN 20 MG TAB PO SCH (20:10)
[2022-08-12] VITALS (14 sets, daily range): BP systolic 106–148; BP diastolic 56–72
[2022-08-12] MEDS: IPRATROPIUM 0.5MG/ALBUTEROL 2.5MG INH SOL UD 3ML (DUONEB) NEB SCH ×4 (01:27→20:05)
[2022-08-12] MEDS: AZTREONAM 2 GM in D5W MINI-BAG PLUS 100 ML IV SCH ×3 (04:14→21:51)
[2022-08-12 05:05] LABS: BASO % 0.3 % (0.0-1.0); EOS % 0.3 % (0.0-3.0); HEMATOCRIT 33.4 % (36.0-47.0); HEMOGLOBIN 10.9 g/dl (12.0-15.5); LYMPH # 1.1 10^3/uL (1.5-5.0); LYMPH % 10.5 % (24.0-44.0); MEAN CORPUSCULAR HEMOGLOBIN 32.7 pg (27.0-33.0); MEAN CORPUSCULAR HGB CONC 32.6 g/dl (32.0-36.5); MEAN CORPUSCULAR VOLUME 100.3 fl (80.0-96.0); MONO # 0.4 10^3/uL (0.0-0.8); MONO % 4.1 % (2.0-8.0); NEUTROPHILS # 9.1 10^3/uL (1.5-8.5); PLATELET COUNT, AUTOMATED 480 10^3/uL (150-450); RED BLOOD COUNT 3.33 10^6/uL (4.00-5.40); WHITE BLOOD COUNT 10.8 10^3/uL (4.0-10.0)
[2022-08-12 05:49] LABS: ALBUMIN 2.1 G/DL (3.2-5.2); ALKALINE PHOSPHATASE 89 U/L (46-116); ALT/SGPT 52 U/L (7.0-40); AST/SGOT 39 U/L (<34); BILIRUBIN,TOTAL 0.4 MG/DL (0.3-1.2); BLOOD UREA NITROGEN 19 MG/DL (9-23); CALCIUM LEVEL 7.9 MG/DL (8.3-10.6); CARBON DIOXIDE LEVEL 25 MMOL/L (20-31); CHLORIDE LEVEL 105 MMOL/L (98-107); CREATININE FOR GFR 0.51 MG/DL (0.55-1.30); GLOMERULAR FILTRATION RATE > 60.0 (>45); GLUCOSE, FASTING 98 MG/DL (74-106); POTASSIUM SERUM 3.1 MMOL/L (3.5-5.1); SODIUM LEVEL 138 MMOL/L (136-145)
[2022-08-12] MEDS: TIOTROPIUM INHALER/CAPSULE (SPIRIVA) INH SCH (08:00)
[2022-08-12] MEDS: APIXABAN 5 MG TAB (ELIQUIS) PO SCH ×2 (08:44→21:51)
[2022-08-12] MEDS: OMEPRAZOLE 20MG CAP PO SCH (08:44)
[2022-08-12] MEDS: METOPROLOL TART 50 MG TAB PO SCH ×2 (08:44→21:53)
[2022-08-12] MEDS: guaiFENesin ER 600 MG TAB PO SCH ×2 (08:45→21:50)
[2022-08-12] MEDS: NORCO, ANEXSIA 5/325MG TABLET (HYDROcodone/ACETAMINOPHEN) PO PRN ×2 (08:45→18:19)
[2022-08-12] MEDS ORDERED: ALPRAZolam 0.5 MG TAB PO ONE (08:50)
[2022-08-12] MEDS ORDERED: POTASSIUM CHLORIDE 10MEQ SR TABLET PO ONE (09:15)
[2022-08-12] MEDS: LINEZOLID 600MG TABLET (ZYVOX) PO SCH ×2 (11:24→21:50)
[2022-08-12] MEDS ORDERED: VARIBAR PUDDING 40% w/v 230ML TUBE As Ordered ONE (13:09)
[2022-08-12] MEDS ORDERED: BARIUM SULFATE 700 MG TABLET (E-Z-DISK) As Ordered ONE (13:10)
[2022-08-12] MEDS ORDERED: E-Z-PAQUE 96% w/w SUSP 176GM BTL As Ordered ONE (13:10)
[2022-08-12] MEDS ORDERED: VARIBAR NECTAR 40% w/v 240ML SUSP BTL As Ordered ONE (13:10)
[2022-08-12] MEDS: SYMBICORT 80/4.5MCG INHALER 6GM INH SCH (20:06)
[2022-08-12] MEDS: RAMELTEON 8 MG TAB (ROZEREM) PO PRN (21:50)
[2022-08-12] MEDS: ATORVASTATIN 20 MG TAB PO SCH (21:50)
[2022-08-12] MEDS: METOPROLOL TART 25 MG TABLET PO SCH (21:53)
[2022-08-13] MEDS: IPRATROPIUM 0.5MG/ALBUTEROL 2.5MG INH SOL UD 3ML (DUONEB) NEB SCH ×4 (01:40→19:50)
[2022-08-13] MEDS: AZTREONAM 2 GM in D5W MINI-BAG PLUS 100 ML IV SCH ×2 (04:21→13:07)
[2022-08-13 04:59] VITALS: BP 155/69
[2022-08-13 06:46] LABS: BASO % 0.4 % (0.0-1.0); EOS % 0.4 % (0.0-3.0); HEMATOCRIT 33.5 % (36.0-47.0); HEMOGLOBIN 10.7 g/dl (12.0-15.5); LYMPH # 0.9 10^3/uL (1.5-5.0); LYMPH % 9.9 % (24.0-44.0); MEAN CORPUSCULAR HEMOGLOBIN 32.3 pg (27.0-33.0); MEAN CORPUSCULAR HGB CONC 31.9 g/dl (32.0-36.5); MEAN CORPUSCULAR VOLUME 101.2 fl (80.0-96.0); MONO # 0.5 10^3/uL (0.0-0.8); MONO % 4.8 % (2.0-8.0); NEUTROPHILS % 83.9 % (36.0-66.0); PLATELET COUNT, AUTOMATED 488 10^3/uL (150-450); RED BLOOD COUNT 3.31 10^6/uL (4.00-5.40); WHITE BLOOD COUNT 9.5 10^3/uL (4.0-10.0)
[2022-08-13 07:05] LABS: ALBUMIN 1.9 G/DL (3.2-5.2); ALKALINE PHOSPHATASE 87 U/L (46-116); ALT/SGPT 46 U/L (7.0-40); AST/SGOT 29 U/L (<34); BILIRUBIN,TOTAL 0.4 MG/DL (0.3-1.2); BLOOD UREA NITROGEN 16 MG/DL (9-23); CALCIUM LEVEL 7.6 MG/DL (8.3-10.6); CARBON DIOXIDE LEVEL 22 MMOL/L (20-31); CHLORIDE LEVEL 107 MMOL/L (98-107); CREATININE FOR GFR 0.56 MG/DL (0.55-1.30); GLOMERULAR FILTRATION RATE > 60.0 (>45); GLUCOSE, FASTING 95 MG/DL (74-106); POTASSIUM SERUM 3.7 MMOL/L (3.5-5.1); SODIUM LEVEL 139 MMOL/L (136-145); TOTAL PROTEIN 4.8 G/DL (5.7-8.2)
[2022-08-13] MEDS: SYMBICORT 80/4.5MCG INHALER 6GM INH SCH ×2 (07:52→19:50)
[2022-08-13] MEDS: TIOTROPIUM INHALER/CAPSULE (SPIRIVA) INH SCH (07:52)
[2022-08-13] MEDS: APIXABAN 5 MG TAB (ELIQUIS) PO SCH ×2 (08:32→19:41)
[2022-08-13] MEDS: guaiFENesin ER 600 MG TAB PO SCH ×2 (08:32→19:41)
[2022-08-13] MEDS: NORCO, ANEXSIA 5/325MG TABLET (HYDROcodone/ACETAMINOPHEN) PO PRN ×2 (08:32→19:46)
[2022-08-13] MEDS: METOPROLOL TART 50 MG TAB PO SCH ×2 (08:33→19:42)
[2022-08-13] MEDS: METOPROLOL TART 25 MG TABLET PO SCH ×2 (08:33→19:42)
[2022-08-13] MEDS: OMEPRAZOLE 20MG CAP PO SCH (08:33)
[2022-08-13] MEDS: LINEZOLID 600MG TABLET (ZYVOX) PO SCH ×2 (08:34→19:41)
[2022-08-13] MEDS: amLODIPine 5 MG TAB PO SCH (08:34)
[2022-08-13 14:00] VITALS: BP 143/65
[2022-08-13] MEDS: ATORVASTATIN 20 MG TAB PO SCH (19:41)
[2022-08-13 21:21] VITALS: BP_SYST 141; BP_SYST 142; BP_DIAS 65
[2022-08-13] MEDS: RAMELTEON 8 MG TAB (ROZEREM) PO PRN (21:21)
[2022-08-14] MEDS: IPRATROPIUM 0.5MG/ALBUTEROL 2.5MG INH SOL UD 3ML (DUONEB) NEB SCH ×4 (03:00→19:12)
[2022-08-14] MEDS: NORCO, ANEXSIA 5/325MG TABLET (HYDROcodone/ACETAMINOPHEN) PO PRN ×2 (04:54→12:48)
[2022-08-14 06:00] VITALS: BP 145/75
[2022-08-14 06:45] LABS: BASO % 0.5 % (0.0-1.0); EOS % 0.4 % (0.0-3.0); HEMATOCRIT 33.9 % (36.0-47.0); HEMOGLOBIN 11.1 g/dl (12.0-15.5); LYMPH # 0.8 10^3/uL (1.5-5.0); MEAN CORPUSCULAR HEMOGLOBIN 32.7 pg (27.0-33.0); MEAN CORPUSCULAR HGB CONC 32.7 g/dl (32.0-36.5); MONO # 0.4 10^3/uL (0.0-0.8); NEUTROPHILS % 83.4 % (36.0-66.0); PLATELET COUNT, AUTOMATED 484 10^3/uL (150-450); RED BLOOD COUNT 3.39 10^6/uL (4.00-5.40); WHITE BLOOD COUNT 8.4 10^3/uL (4.0-10.0)
[2022-08-14 07:02] LABS: ALBUMIN 1.9 G/DL (3.2-5.2); ALKALINE PHOSPHATASE 88 U/L (46-116); ALT/SGPT 49 U/L (7.0-40); AST/SGOT 34 U/L (<34); BILIRUBIN,TOTAL 0.4 MG/DL (0.3-1.2); BLOOD UREA NITROGEN 15 MG/DL (9-23); CALCIUM LEVEL 7.8 MG/DL (8.3-10.6); CARBON DIOXIDE LEVEL 25 MMOL/L (20-31); CHLORIDE LEVEL 106 MMOL/L (98-107); CREATININE FOR GFR 0.49 MG/DL (0.55-1.30); GLOMERULAR FILTRATION RATE > 60.0 (>45); GLUCOSE, FASTING 86 MG/DL (74-106); POTASSIUM SERUM 3.5 MMOL/L (3.5-5.1); SODIUM LEVEL 139 MMOL/L (136-145)
[2022-08-14] MEDS: TIOTROPIUM INHALER/CAPSULE (SPIRIVA) INH SCH (07:56)
[2022-08-14] MEDS: SYMBICORT 80/4.5MCG INHALER 6GM INH SCH ×2 (07:57→19:18)
[2022-08-14] MEDS: guaiFENesin ER 600 MG TAB PO SCH ×2 (08:33→19:44)
[2022-08-14] MEDS: APIXABAN 5 MG TAB (ELIQUIS) PO SCH ×2 (08:34→19:44)
[2022-08-14] MEDS: OMEPRAZOLE 20MG CAP PO SCH (08:34)
[2022-08-14] MEDS: METOPROLOL TART 25 MG TABLET PO SCH ×2 (08:36→19:43)
[2022-08-14] MEDS: amLODIPine 5 MG TAB PO SCH (08:37)
[2022-08-14] MEDS: METOPROLOL TART 50 MG TAB PO SCH ×2 (08:37→19:43)
[2022-08-14 14:00] VITALS: BP 137/64
[2022-08-14 19:00] VITALS: BP 153/75
[2022-08-14] MEDS: ATORVASTATIN 20 MG TAB PO SCH (19:44)
[2022-08-14 21:30] VITALS: BP 142/63
[2022-08-15] MEDS: NORCO, ANEXSIA 5/325MG TABLET (HYDROcodone/ACETAMINOPHEN) PO PRN ×3 (01:25→16:07)
[2022-08-15] MEDS: IPRATROPIUM 0.5MG/ALBUTEROL 2.5MG INH SOL UD 3ML (DUONEB) NEB SCH ×4 (02:00→19:57)
[2022-08-15 06:00] VITALS: BP 154/72
[2022-08-15] MEDS: SYMBICORT 80/4.5MCG INHALER 6GM INH SCH ×2 (07:19→19:57)
[2022-08-15] MEDS: TIOTROPIUM INHALER/CAPSULE (SPIRIVA) INH SCH (07:19)
[2022-08-15] MEDS: METOPROLOL TART 25 MG TABLET PO SCH ×2 (09:00→21:49)
[2022-08-15] MEDS: METOPROLOL TART 50 MG TAB PO SCH ×2 (09:00→21:49)
[2022-08-15] MEDS: guaiFENesin ER 600 MG TAB PO SCH ×2 (09:17→21:48)
[2022-08-15] MEDS: OMEPRAZOLE 20MG CAP PO SCH (09:17)
[2022-08-15] MEDS: APIXABAN 5 MG TAB (ELIQUIS) PO SCH ×2 (09:18→21:49)
[2022-08-15] MEDS: amLODIPine 5 MG TAB PO SCH (09:21)
[2022-08-15 14:00] VITALS: BP 145/68
[2022-08-15] MEDS: ATORVASTATIN 20 MG TAB PO SCH (21:48)
[2022-08-16] MEDS: IPRATROPIUM 0.5MG/ALBUTEROL 2.5MG INH SOL UD 3ML (DUONEB) NEB SCH ×4 (02:00→19:16)
[2022-08-16 05:08] VITALS: BP 172/64
[2022-08-16] MEDS: amLODIPine 5 MG TAB PO SCH (05:13)
[2022-08-16] MEDS: SYMBICORT 80/4.5MCG INHALER 6GM INH SCH ×2 (07:32→19:15)
[2022-08-16] MEDS: TIOTROPIUM INHALER/CAPSULE (SPIRIVA) INH SCH (07:32)
[2022-08-16] MEDS: guaiFENesin ER 600 MG TAB PO SCH ×2 (08:07→19:44)
[2022-08-16] MEDS: OMEPRAZOLE 20MG CAP PO SCH (08:07)
[2022-08-16] MEDS: APIXABAN 5 MG TAB (ELIQUIS) PO SCH ×2 (08:07→19:44)
[2022-08-16] MEDS: METOPROLOL TART 50 MG TAB PO SCH ×2 (08:08→19:45)
[2022-08-16] MEDS: METOPROLOL TART 25 MG TABLET PO SCH ×2 (08:08→19:46)
[2022-08-16] MEDS: NORCO, ANEXSIA 5/325MG TABLET (HYDROcodone/ACETAMINOPHEN) PO PRN ×3 (08:44→22:26)
[2022-08-16 14:00] VITALS: BP 166/71
[2022-08-16 16:05] VITALS: BP 135/54
[2022-08-16] MEDS: ATORVASTATIN 20 MG TAB PO SCH (19:44)
[2022-08-16] MEDS: RAMELTEON 8 MG TAB (ROZEREM) PO PRN (19:48)
[2022-08-16 22:00] VITALS: BP 125/45
[2022-08-17] MEDS: IPRATROPIUM 0.5MG/ALBUTEROL 2.5MG INH SOL UD 3ML (DUONEB) NEB SCH ×3 (02:00→13:20)
[2022-08-17] MEDS: NORCO, ANEXSIA 5/325MG TABLET (HYDROcodone/ACETAMINOPHEN) PO PRN (05:46)
[2022-08-17 06:00] VITALS: BP 160/102
[2022-08-17 06:40] VITALS: BP 158/71
[2022-08-17 07:46] VITALS: BP 160/72
[2022-08-17] MEDS: TIOTROPIUM INHALER/CAPSULE (SPIRIVA) INH SCH (07:52)
[2022-08-17] MEDS: SYMBICORT 80/4.5MCG INHALER 6GM INH SCH (07:52)
[2022-08-17] MEDS: METOPROLOL TART 50 MG TAB PO SCH (09:00)
[2022-08-17] MEDS: METOPROLOL TART 25 MG TABLET PO SCH (09:00)
[2022-08-17 09:02] VITALS: BP 164/74
[2022-08-17] MEDS: guaiFENesin ER 600 MG TAB PO SCH (09:02)
[2022-08-17] MEDS: amLODIPine 5 MG TAB PO SCH (09:02)
[2022-08-17] MEDS: OMEPRAZOLE 20MG CAP PO SCH (09:03)
[2022-08-17] MEDS: APIXABAN 5 MG TAB (ELIQUIS) PO SCH (09:03)
[2022-08-17 14:00] VITALS: BP 150/68
== END 2022-08-17 18:16 | disposition home or self-care (01) | DRG 720 ==
LOC: M ED 10:12 → EDBD 10:12 → M ED INP 12:42 → EEVIPCON 12:42 → ENRESERV 13:09 → M ICU 15:02 → M MSPAV 08-12 18:03
PROVIDERS: ADMIT Internal Medicine Pulmonary Disease; ATTEND Internal Medicine
PROC: 0BH17EZ Insertion of Endotracheal Airway into Trachea, Via Natural or Artificial Opening (ICD-10-PCS; principal; 2022-08-02)
PROC: 5A1945Z Respiratory Ventilation, 24-96 Consecutive Hours (ICD-10-PCS; 2022-08-02)
PROC: 0BJ08ZZ Inspection of Tracheobronchial Tree, Via Natural or Artificial Opening Endoscopic (ICD-10-PCS; 2022-08-02)
PROC: 02HV33Z Insertion of Infusion Device into Superior Vena Cava, Percutaneous Approach (ICD-10-PCS; 2022-08-03)
PROC: B246ZZZ Ultrasonography of Right and Left Heart (ICD-10-PCS; 2022-08-03)
DX: A41.9 Sepsis, unspecified organism (principal); J96.01 Acute respiratory failure with hypoxia; I63.59 Cerebral infarction due to unspecified occlusion or stenosis of other cerebral artery; K72.00 Acute and subacute hepatic failure without coma; R65.21 Severe sepsis with septic shock; G93.41 Metabolic encephalopathy; L89.156 Pressure-induced deep tissue damage of sacral region; J69.0 Pneumonitis due to inhalation of food and vomit; E43 Unspecified severe protein-calorie malnutrition; J15.212 Pneumonia due to Methicillin resistant Staphylococcus aureus; J44.1 Chronic obstructive pulmonary disease with (acute) exacerbation; J44.0 Chronic obstructive pulmonary disease with (acute) lower respiratory infection; R64 Cachexia; I24.8 Other forms of acute ischemic heart disease; E87.0 Hyperosmolality and hypernatremia; I48.0 Paroxysmal atrial fibrillation; I47.1 Supraventricular tachycardia; I48.92 Unspecified atrial flutter; E87.5 Hyperkalemia; I65.22 Occlusion and stenosis of left carotid artery; Z66 Do not resuscitate; N39.0 Urinary tract infection, site not specified; B96.20 Unspecified Escherichia coli [E. coli] as the cause of diseases classified elsewhere; R91.8 Other nonspecific abnormal finding of lung field; E78.5 Hyperlipidemia, unspecified; E55.9 Vitamin D deficiency, unspecified; K21.9 Gastro-esophageal reflux disease without esophagitis; R74.01 Elevation of levels of liver transaminase levels; I77.1 Stricture of artery; M54.9 Dorsalgia, unspecified; G83.31 Monoplegia, unspecified affecting right dominant side; I16.0 Hypertensive urgency; D64.9 Anemia, unspecified; G89.29 Other chronic pain; T46.2X5A Adverse effect of other antidysrhythmic drugs, initial encounter; Z68.1 Body mass index [BMI] 19.9 or less, adult; Z79.899 Other long term (current) drug therapy; Z86.73 Personal history of transient ischemic attack (TIA), and cerebral infarction without residual deficits; Z79.01 Long term (current) use of anticoagulants; Z87.891 Personal history of nicotine dependence

== ENCOUNTER → 2022-08-31 | Outpatient (REF) | payer OTHER ==
[~2022-08-31] MED LIST changes: +ASPI81CH48 PO; -AZITHROMYCIN 250MG TABLET PO SCH; +HYDR-4571 PO; +PATIENT COMMENT
[2022-08-31 17:22] LABS: HEMOGLOBIN 15.2 g/dl (12.0-15.5); MEAN CORPUSCULAR HEMOGLOBIN 32.5 pg (27.0-33.0); MEAN CORPUSCULAR HGB CONC 32.3 g/dl (32.0-36.5); MEAN CORPUSCULAR VOLUME 100.6 fl (80.0-96.0); PLATELET COUNT, AUTOMATED 326 10^3/uL (150-450); RED BLOOD COUNT 4.67 10^6/uL (4.00-5.40); WHITE BLOOD COUNT 7.6 10^3/uL (4.0-10.0)
[2022-08-31 17:51] LABS: THYROID STIMULATING HORMONE 1.065 uIU/ML (0.55-4.78); TOTAL 25(OH) VITAMIN D 46.6 NG/ML (20.0-100.0)
[2022-08-31 20:38] LABS: ALBUMIN 3.9 G/DL (3.2-5.2); ALKALINE PHOSPHATASE 112 U/L (46-116); ALT/SGPT 20 U/L (7.0-40); AST/SGOT 19 U/L (<34); BILIRUBIN,TOTAL 0.6 MG/DL (0.3-1.2); BLOOD UREA NITROGEN 20 MG/DL (9-23); CALCIUM LEVEL 10.2 MG/DL (8.3-10.6); CARBON DIOXIDE LEVEL 38 MMOL/L (20-31); CHLORIDE LEVEL 90 MMOL/L (98-107); CHOLESTEROL LEVEL 179 MG/DL (<200); CHOLESTEROL RISK RATIO 1.92 (<5); CREATININE FOR GFR 0.62 MG/DL (0.55-1.30); GLOMERULAR FILTRATION RATE > 60.0 (>45); GLUCOSE, FASTING 92 MG/DL (74-106); HDL CHOLESTEROL 93.1 MG/DL (>40); LDL CHOLESTEROL 59.7 MG/DL (<100); NON-HDL-C 86 MG/DL; POTASSIUM SERUM 3.5 MMOL/L (3.5-5.1); SODIUM LEVEL 137 MMOL/L (136-145); TOTAL PROTEIN 7.8 G/DL (5.7-8.2); TRIGLYCERIDES LEVEL 131 MG/DL (<150)
[2022-08-31 20:59] LABS: HEMOGLOBIN A1c 4.3 % (4.0-6.0)
== END ==
LOC: M SFHCCLAY 14:27
PROVIDERS: ATTEND Nurse Practitioner Family
DX: Z13.1 Encounter for screening for diabetes mellitus (principal); I10 Essential (primary) hypertension; E55.9 Vitamin D deficiency, unspecified; I25.10 Atherosclerotic heart disease of native coronary artery without angina pectoris

== ENCOUNTER 2022-11-12 04:57 | Observation (INO) | payer OTHER ==
[~2022-11-12] VITALS: Ht 162.6 cm; Wt 44.4 kg
[2022-11-12] MEDS ORDERED: PROZ10CA7 PO (05:22)
[2022-11-12] MEDS ORDERED: FLUoxetine 20MG CAP PO SCH (09:00)
[2022-11-12 09:09] LABS: HEMATOCRIT 44.7 % (36.0-47.0); HEMOGLOBIN 16.2 g/dl (12.0-15.5); MEAN CORPUSCULAR HEMOGLOBIN 32.7 pg (27.0-33.0); MEAN CORPUSCULAR HGB CONC 36.2 g/dl (32.0-36.5); MEAN CORPUSCULAR VOLUME 90.1 fl (80.0-96.0); PLATELET COUNT, AUTOMATED 250 10^3/uL (150-450); RED BLOOD COUNT 4.96 10^6/uL (4.00-5.40); WHITE BLOOD COUNT 6.9 10^3/uL (4.0-10.0)
[2022-11-12 09:27] LABS: AMPHETAMINES LEVEL URINE NEGATIVE (NEGATIVE); BARBITURATES URINE NEGATIVE (NEGATIVE); CANNABINOIDS URINE NEGATIVE (NEGATIVE); COCAINE METABOLITE URINE NEGATIVE (NEGATIVE); METHADONE URINE NEGATIVE (NEGATIVE); PHENCYCLIDINE URINE NEGATIVE (NEGATIVE)
[2022-11-12 09:28] LABS: BENZODIAZEPINES URINE POSITIVE (NEGATIVE); OPIATES URINE POSITIVE (NEGATIVE)
[2022-11-12 09:30] LABS: ETHYL ALCOHOL (ETHANOL) < 0.003 % (0.000-0.010)
[2022-11-12 09:31] LABS: ACETAMINOPHEN LEVEL < 2.0 UG/ML (10.0-20.0); SALICYLATE LEVEL < 3.0 MG/DL (<30)
[2022-11-12] MEDS ORDERED: ONDANSETRON 4MG ORAL DISINTEGRATING TAB PO ONE (09:40)
[2022-11-12 09:49] LABS: ALBUMIN 3.8 G/DL (3.2-5.2); ALKALINE PHOSPHATASE 83 U/L (46-116); ALT/SGPT 17 U/L (7.0-40); AST/SGOT 19 U/L (<34); BILIRUBIN,DIRECT 0.4 MG/DL (<0.4); BILIRUBIN,TOTAL 1.2 MG/DL (0.3-1.2); BLOOD UREA NITROGEN 14 MG/DL (9-23); CALCIUM LEVEL 9.6 MG/DL (8.3-10.6); CARBON DIOXIDE LEVEL 36 MMOL/L (20-31); CHLORIDE LEVEL 84 MMOL/L (98-107); CREATININE FOR GFR 0.59 MG/DL (0.55-1.30); GLOMERULAR FILTRATION RATE > 60.0 (>45); GLUCOSE, FASTING 93 MG/DL (74-106); POTASSIUM SERUM 2.4 MMOL/L (3.5-5.1); SODIUM LEVEL 127 MMOL/L (136-145); THYROID STIMULATING HORMONE 0.494 uIU/ML (0.55-4.78); TOTAL PROTEIN 6.9 G/DL (5.7-8.2)
[2022-11-12] MEDS ORDERED: KCL 10MEQ/100ML SWI (KRUN) 10 MEQ in IV 1 EA IV ONE (09:55)
[2022-11-12] MEDS ORDERED: POTASSIUM CHLORIDE 10MEQ SR TABLET PO ONE ×3 (09:55→13:35)
[2022-11-12 11:12] LABS: OSMOLALITY SERUM 265 MOSM/KG (280-301)
[2022-11-12 11:53] LABS: RSV AMPLIFICATION NEGATIVE (NEGATIVE)
[2022-11-12] MEDS ORDERED: NORCO, ANEXSIA 5/325MG TABLET (HYDROcodone/ACETAMINOPHEN) PO ONE (13:05)
[2022-11-12 13:15] LABS: BLOOD UREA NITROGEN 12 MG/DL (9-23); CALCIUM LEVEL 8.6 MG/DL (8.3-10.6); CARBON DIOXIDE LEVEL 36 MMOL/L (20-31); CHLORIDE LEVEL 87 MMOL/L (98-107); CREATININE FOR GFR 0.56 MG/DL (0.55-1.30); GLOMERULAR FILTRATION RATE > 60.0 (>45); GLUCOSE, FASTING 132 MG/DL (74-106); MAGNESIUM LEVEL 1.5 MG/DL (1.8-2.4); PHOSPHORUS LEVEL 3.8 MG/DL (2.4-5.1); POTASSIUM SERUM 2.8 MMOL/L (3.5-5.1); SODIUM LEVEL 128 MMOL/L (136-145)
[2022-11-12] MEDS: MAG SULF 1GM/100ML (MAG RUN) 1 GM in IV 1 EA IV SCH ×2 (14:13→17:49)
[2022-11-12] MEDS ORDERED: METO1TAB32 PO (14:25)
[2022-11-12] MEDS ORDERED: LOSA100T45 PO (14:25)
[2022-11-12] MEDS ORDERED: CHLO125TA PO (14:25)
[2022-11-12] MEDS ORDERED: SERT25TA21 PO (14:25)
[2022-11-12] MEDS ORDERED: HOME MED LIST COMPLETE! XX SCH (14:25)
[2022-11-12] MEDS ORDERED: SENNA 8.6 MG TAB (SENOKOT) PO PRN (15:10)
[2022-11-12] MEDS ORDERED: ALBUTEROL 90 MCG/ACT 8GM HFA INHALER INH PRN (15:10)
[2022-11-12 15:35] LABS: APPEARANCE, URINE CLEAR (CLEAR); BACTERIA, URINE AUTO NEGATIVE (NEGATIVE); BILIRUBIN, URINE AUTO NEGATIVE (NEGATIVE); BLOOD, URINE BLOOD 1+ (NEGATIVE); COLOR, URINE YELLOW (YELLOW); GLUCOSE, URINE (UA) AUTO NEGATIVE (NEGATIVE); KETONE, URINE AUTO NEGATIVE (NEGATIVE); LEUKOCYTE ESTERASE, URINE AUTO NEGATIVE (NEGATIVE); NITRITE, URINE AUTO NEGATIVE (NEGATIVE); PROTEIN, URINE AUTO NEGATIVE (NEGATIVE); RBC, URINE AUTO 0 /HPF (0-3); SPECIFIC GRAVITY URINE AUTO 1.006 (1.002-1.035); SQUAMOUS EPITHELIAL CELL UR AU 0 /HPF (0-6); UROBILINOGEN, URINE AUTO 0.2 mg/dL (0.0-2.0); WBC, URINE AUTO 0 /HPF (0-3)
[2022-11-12 15:47] LABS: CREATININE,RANDOM URINE 29.3 MG/DL
[2022-11-12 17:45] VITALS: BP 151/67
[2022-11-12 19:41] LABS: BLOOD UREA NITROGEN 12 MG/DL (9-23); CALCIUM LEVEL 8.8 MG/DL (8.3-10.6); CARBON DIOXIDE LEVEL 35 MMOL/L (20-31); CHLORIDE LEVEL 91 MMOL/L (98-107); CREATININE FOR GFR 0.59 MG/DL (0.55-1.30); GLOMERULAR FILTRATION RATE > 60.0 (>45); GLUCOSE, FASTING 84 MG/DL (74-106); PHOSPHORUS LEVEL 2.3 MG/DL (2.4-5.1); SODIUM LEVEL 131 MMOL/L (136-145)
[2022-11-12 20:00] VITALS: BP 99/52
[2022-11-12] MEDS: ADVAIR HFA 230/21MCG INHALER INH SCH (20:27)
[2022-11-12] MEDS ORDERED: ATORVASTATIN 20 MG TAB PO SCH (21:00)
[2022-11-12] MEDS: busPIRone 10 MG TAB PO SCH (21:01)
[2022-11-12] MEDS: NORCO, ANEXSIA 5/325MG TABLET (HYDROcodone/ACETAMINOPHEN) PO PRN (21:02)
[2022-11-12] MEDS: POTASSIUM CHLORIDE 10MEQ SR TABLET PO SCH ×2 (21:03→23:25)
[2022-11-12] MEDS: APIXABAN 5 MG TAB (ELIQUIS) PO SCH (21:03)
[2022-11-12 23:20] VITALS: BP 100/52
[2022-11-13 01:42] LABS: BLOOD UREA NITROGEN 15 MG/DL (9-23); CALCIUM LEVEL 8.8 MG/DL (8.3-10.6); CARBON DIOXIDE LEVEL 33 MMOL/L (20-31); CHLORIDE LEVEL 92 MMOL/L (98-107); CREATININE FOR GFR 0.62 MG/DL (0.55-1.30); GLOMERULAR FILTRATION RATE > 60.0 (>45); GLUCOSE, FASTING 96 MG/DL (74-106); MAGNESIUM LEVEL 1.6 MG/DL (1.8-2.4); PHOSPHORUS LEVEL 2.4 MG/DL (2.4-5.1); POTASSIUM SERUM 3.3 MMOL/L (3.5-5.1); SODIUM LEVEL 130 MMOL/L (136-145)
[2022-11-13 06:00] VITALS: BP 148/72
[2022-11-13] MEDS: NORCO, ANEXSIA 5/325MG TABLET (HYDROcodone/ACETAMINOPHEN) PO PRN (06:48)
[2022-11-13 07:26] LABS: BLOOD UREA NITROGEN 12 MG/DL (9-23); CALCIUM LEVEL 9.3 MG/DL (8.3-10.6); CARBON DIOXIDE LEVEL 34 MMOL/L (20-31); CHLORIDE LEVEL 94 MMOL/L (98-107); GLOMERULAR FILTRATION RATE > 60.0 (>45); GLUCOSE, FASTING 89 MG/DL (74-106); MAGNESIUM LEVEL 1.6 MG/DL (1.8-2.4); PHOSPHORUS LEVEL 2.6 MG/DL (2.4-5.1); POTASSIUM SERUM 4.3 MMOL/L (3.5-5.1); SODIUM LEVEL 133 MMOL/L (136-145)
[2022-11-13 08:00] VITALS: BP 166/76
[2022-11-13] MEDS ORDERED: POTASSIUM CHLORIDE 10MEQ SR TABLET PO ONE (08:00)
[2022-11-13] MEDS ORDERED: TIOTROPIUM INHALER/CAPSULE (SPIRIVA) INH SCH (08:00)
[2022-11-13] MEDS ORDERED: MAG SULF 1GM/100ML (MAG RUN) 1 GM in IV 1 EA IV ONE (08:05)
[2022-11-13] MEDS: ADVAIR HFA 230/21MCG INHALER INH SCH (08:05)
[2022-11-13 08:13] VITALS: BP 166/76
[2022-11-13] MEDS: APIXABAN 5 MG TAB (ELIQUIS) PO SCH (08:14)
[2022-11-13] MEDS: busPIRone 10 MG TAB PO SCH (08:15)
[2022-11-13] MEDS ORDERED: CHLORTHALIDONE 12.5MG PER 1/2 TABLET PO SCH (09:00)
[2022-11-13] MEDS ORDERED: OMEPRAZOLE 20MG CAP PO SCH (09:00)
[2022-11-13] MEDS ORDERED: SERTRALINE HCL 25 MG TABLET PO SCH (09:00)
[2022-11-13] MEDS ORDERED: SERTRALINE HCL 50 MG TAB PO SCH (09:00)
[2022-11-13] MEDS ORDERED: METOPROLOL SUCC *XL* 25MG TAB (TopROL *XL*) PO SCH (09:00)
[2022-11-13] MEDS ORDERED: FLUoxetine 20MG CAP PO SCH (09:00)
[2022-11-13] MEDS ORDERED: LOSARTAN 50MG TABLET PO SCH (09:00)
[2022-11-13] MEDS ORDERED: ENOXAPARIN 40MG/0.4ML SYRINGE (J1650 PER 10MG) SC SCH (09:00)
[2022-11-13] MEDS ORDERED: ASPIRIN 81MG CHEW TABLET PO SCH (09:00)
[2022-11-13] MEDS ORDERED: MAGNESIUM OXIDE 400MG TAB (MAG-OX) PO ONE (09:20)
[2022-11-13] MEDS ORDERED: BUSP10TA PO (10:41)
[2022-11-13] MEDS ORDERED: HYDR-643 PO ×2 (10:41→12:40)
[2022-11-13 11:03] LABS: BLOOD UREA NITROGEN 11 MG/DL (9-23); CALCIUM LEVEL 9.2 MG/DL (8.3-10.6); CARBON DIOXIDE LEVEL 34 MMOL/L (20-31); CHLORIDE LEVEL 93 MMOL/L (98-107); CREATININE FOR GFR 0.59 MG/DL (0.55-1.30); GLOMERULAR FILTRATION RATE > 60.0 (>45); GLUCOSE, FASTING 116 MG/DL (74-106); POTASSIUM SERUM 4.5 MMOL/L (3.5-5.1); SODIUM LEVEL 132 MMOL/L (136-145)
[2022-11-14] MEDS ORDERED: HOLTER MONITOR XX ×2 (10:13→10:14)
[2022-11-14] MEDS ORDERED: AMLO1TAB24 PO (10:20)
== END 2022-11-13 12:56 | disposition home or self-care (01) ==
LOC: M ED 04:57 → EDBD 04:57 → M ED INP 04:58 → UNDOADMOB 10:45 → INTOOBSV 10:45 → M ED INP 16:55 → M MSPAV 16:55 → UNDODISOB 11-13 12:56
PROVIDERS: ADMIT Internal Medicine; ATTEND Internal Medicine
DX: F41.9 Anxiety disorder, unspecified (principal); E87.8 Other disorders of electrolyte and fluid balance, not elsewhere classified; I48.91 Unspecified atrial fibrillation; J44.9 Chronic obstructive pulmonary disease, unspecified; I10 Essential (primary) hypertension; E55.9 Vitamin D deficiency, unspecified; M54.9 Dorsalgia, unspecified; G89.29 Other chronic pain; Z86.73 Personal history of transient ischemic attack (TIA), and cerebral infarction without residual deficits; E87.6 Hypokalemia; E87.1 Hypo-osmolality and hyponatremia; Z95.828 Presence of other vascular implants and grafts; Z87.891 Personal history of nicotine dependence; Z88.0 Allergy status to penicillin; Z88.1 Allergy status to other antibiotic agents; Z88.5 Allergy status to narcotic agent; Z88.8 Allergy status to other drugs, medicaments and biological substances; Z79.899 Other long term (current) drug therapy; Z79.82 Long term (current) use of aspirin; Z79.01 Long term (current) use of anticoagulants
CPT/HCPCS: 36415; 80048; 80076; 80143; 80307; 81001; 82077; 82570; 83735; 83930; 83935; 84100; 84300; 84439; 84443; 85027; 87631; 93005; 93041; 94640; 96365; 96366; 96368; 99285; J3475

== ENCOUNTER 2022-11-14 06:47 | Emergency (ER) | payer OTHER ==
[~2022-11-14] VITALS: Ht 162.6 cm; Wt 45.0 kg
[~2022-11-14 06:47] MED LIST changes: +BUSP10TA PO; +CHLO125TA PO; +HYDR-643 PO; +METO1TAB32 PO; +PROZ10CA7 PO; +SERT25TA21 PO
[2022-11-14 08:48] LABS: BASO # 0.1 10^3/uL (0.0-0.2); BASO % 0.9 % (0.0-1.0); EOS # 0.1 10^3/uL (0.0-0.5); EOS % 0.6 % (0.0-3.0); HEMATOCRIT 46.1 % (36.0-47.0); HEMOGLOBIN 16.2 g/dl (12.0-15.5); LYMPH # 1.9 10^3/uL (1.5-5.0); LYMPH % 19.5 % (24.0-44.0); MEAN CORPUSCULAR HEMOGLOBIN 32.3 pg (27.0-33.0); MEAN CORPUSCULAR HGB CONC 35.1 g/dl (32.0-36.5); MONO # 0.7 10^3/uL (0.0-0.8); MONO % 7.5 % (2.0-8.0); NEUTROPHILS # 6.8 10^3/uL (1.5-8.5); NEUTROPHILS % 71.1 % (36.0-66.0); PLATELET COUNT, AUTOMATED 254 10^3/uL (150-450); RED BLOOD COUNT 5.01 10^6/uL (4.00-5.40); WHITE BLOOD COUNT 9.6 10^3/uL (4.0-10.0)
[2022-11-14 09:16] LABS: RSV AMPLIFICATION NEGATIVE (NEGATIVE)
[2022-11-14 09:23] LABS: ALBUMIN 3.7 G/DL (3.2-5.2); ALKALINE PHOSPHATASE 76 U/L (46-116); ALT/SGPT 15 U/L (7.0-40); AST/SGOT 25 U/L (<34); BILIRUBIN,DIRECT 0.2 MG/DL (<0.4); BILIRUBIN,TOTAL 0.9 MG/DL (0.3-1.2); BLOOD UREA NITROGEN 10 MG/DL (9-23); CARBON DIOXIDE LEVEL 29 MMOL/L (20-31); CHLORIDE LEVEL 93 MMOL/L (98-107); CK-MB VALUE MASS 1.3 NG/ML (<3.6); CREATININE FOR GFR 0.52 MG/DL (0.55-1.30); FREE T4 1.46 NG/DL (0.89-1.76); GLOMERULAR FILTRATION RATE > 60.0 (>45); GLUCOSE, FASTING 94 MG/DL (74-106); POTASSIUM SERUM 3.8 MMOL/L (3.5-5.1); SODIUM LEVEL 127 MMOL/L (136-145); THYROID STIMULATING HORMONE 0.885 uIU/ML (0.55-4.78); TOTAL PROTEIN 6.7 G/DL (5.7-8.2)
[2022-11-14 09:28] LABS: CPK CREATINE PHOSPHOKINASE 91 U/L (34-145); MB/CK RELATIVE INDEX 1.42 (< OR =4)
[2022-11-14 09:42] LABS: CK-MB VALUE MASS 1.1 NG/ML (<3.6)
[2022-11-14 09:45] LABS: MB/CK RELATIVE INDEX 1.59 (< OR =4)
[2022-11-14 10:06] VITALS: BP 138/79
[2022-11-14] MEDS ORDERED: HOLTER MONITOR XX ×2 (10:13→10:14)
[2022-11-14] MEDS ORDERED: AMLO1TAB24 PO (10:20)
== END 2022-11-14 10:26 | disposition home or self-care (01) ==
LOC: M ED 06:47
DX: R00.2 Palpitations (principal); E87.1 Hypo-osmolality and hyponatremia; I48.91 Unspecified atrial fibrillation; I10 Essential (primary) hypertension; Z87.891 Personal history of nicotine dependence

== ENCOUNTER → 2022-11-15 | Outpatient (CLI) | payer OTHER ==
[~2022-11-15] MED LIST changes: +AMLO1TAB24 PO; +HOLTER MONITOR XX; +SENN-186 PO; -SENN-80 PO
== END ==
LOC: M LAB 11:45 → M EKG 11:45
PROVIDERS: ATTEND Emergency Medicine
DX: R00.2 Palpitations (principal)

== ENCOUNTER 2022-11-16 11:33 | Emergency (ER) | payer OTHER ==
[~2022-11-16] VITALS: Ht 162.6 cm; Wt 44.5 kg
[~2022-11-16 11:33] MED LIST changes: -SENN-186 PO; +SENN-80 PO
[2022-11-16] MEDS ORDERED: ALPRAZolam 0.25 MG TAB PO ONE (11:50)
[2022-11-16 12:00] LABS: BASO # 0.1 10^3/uL (0.0-0.2); BASO % 0.7 % (0.0-1.0); EOS % 0.2 % (0.0-3.0); HEMATOCRIT 44.6 % (36.0-47.0); HEMOGLOBIN 16.2 g/dl (12.0-15.5); LYMPH # 1.5 10^3/uL (1.5-5.0); LYMPH % 17.6 % (24.0-44.0); MEAN CORPUSCULAR HEMOGLOBIN 32.9 pg (27.0-33.0); MEAN CORPUSCULAR HGB CONC 36.3 g/dl (32.0-36.5); MEAN CORPUSCULAR VOLUME 90.7 fl (80.0-96.0); MONO # 0.7 10^3/uL (0.0-0.8); MONO % 8.3 % (2.0-8.0); NEUTROPHILS % 72.7 % (36.0-66.0); PLATELET COUNT, AUTOMATED 275 10^3/uL (150-450); RED BLOOD COUNT 4.92 10^6/uL (4.00-5.40); WHITE BLOOD COUNT 8.3 10^3/uL (4.0-10.0)
[2022-11-16 12:30] LABS: ETHYL ALCOHOL (ETHANOL) < 0.003 % (0.000-0.010)
[2022-11-16 12:34] LABS: THYROID STIMULATING HORMONE 0.665 uIU/ML (0.55-4.78)
[2022-11-16 12:35] LABS: ALBUMIN 3.9 G/DL (3.2-5.2); ALKALINE PHOSPHATASE 81 U/L (46-116); ALT/SGPT 10 U/L (7.0-40); AST/SGOT 20 U/L (<34); BILIRUBIN,DIRECT 0.3 MG/DL (<0.4); BILIRUBIN,TOTAL 0.8 MG/DL (0.3-1.2); BLOOD UREA NITROGEN 14 MG/DL (9-23); CALCIUM LEVEL 9.3 MG/DL (8.3-10.6); CARBON DIOXIDE LEVEL 31 MMOL/L (20-31); CHLORIDE LEVEL 85 MMOL/L (98-107); CREATININE FOR GFR 0.59 MG/DL (0.55-1.30); GLOMERULAR FILTRATION RATE > 60.0 (>45); GLUCOSE, FASTING 98 MG/DL (74-106); POTASSIUM SERUM 3.2 MMOL/L (3.5-5.1); SODIUM LEVEL 124 MMOL/L (136-145); TOTAL PROTEIN 7.1 G/DL (5.7-8.2)
[2022-11-16] MEDS ORDERED: NS 1,000 ML IV SCH (13:15)
[2022-11-16 13:41] LABS: AMPHETAMINES LEVEL URINE NEGATIVE (NEGATIVE); BARBITURATES URINE NEGATIVE (NEGATIVE); BENZODIAZEPINES URINE NEGATIVE (NEGATIVE); CANNABINOIDS URINE NEGATIVE (NEGATIVE); COCAINE METABOLITE URINE NEGATIVE (NEGATIVE); METHADONE URINE NEGATIVE (NEGATIVE); OPIATES URINE POSITIVE (NEGATIVE); PHENCYCLIDINE URINE NEGATIVE (NEGATIVE)
[2022-11-16] MEDS ORDERED: POTASSIUM CHLORIDE 10MEQ SR TABLET PO ONE (14:00)
[2022-11-16 15:07] LABS: RSV AMPLIFICATION NEGATIVE (NEGATIVE)
[2022-11-16 15:30] VITALS: BP 139/70
[2022-11-16 18:30] LABS: FREE T4 1.66 NG/DL (0.89-1.76)
[2022-11-16 18:38] LABS: OSMOLALITY SERUM 255 MOSM/KG (280-301)
[2022-11-16 19:06] LABS: CREATININE,RANDOM URINE 24.6 MG/DL
== END 2022-11-16 15:48 | disposition left against medical advice (07) ==
LOC: M ED 11:33
DX: E87.1 Hypo-osmolality and hyponatremia (principal); E87.6 Hypokalemia; I10 Essential (primary) hypertension; J44.9 Chronic obstructive pulmonary disease, unspecified; G89.4 Chronic pain syndrome; F41.9 Anxiety disorder, unspecified; Z86.73 Personal history of transient ischemic attack (TIA), and cerebral infarction without residual deficits; Z88.0 Allergy status to penicillin; Z88.1 Allergy status to other antibiotic agents; Z88.5 Allergy status to narcotic agent; Z88.8 Allergy status to other drugs, medicaments and biological substances; Z79.82 Long term (current) use of aspirin; Z79.899 Other long term (current) drug therapy

== ENCOUNTER → 2022-11-17 | Outpatient (REF) | payer OTHER ==
[2022-11-17 18:21] LABS: BLOOD UREA NITROGEN 11 MG/DL (9-23); CALCIUM LEVEL 9.3 MG/DL (8.3-10.6); CARBON DIOXIDE LEVEL 32 MMOL/L (20-31); CHLORIDE LEVEL 91 MMOL/L (98-107); CREATININE FOR GFR 0.66 MG/DL (0.55-1.30); GLOMERULAR FILTRATION RATE > 60.0 (>45); GLUCOSE, FASTING 85 MG/DL (74-106); POTASSIUM SERUM 4.2 MMOL/L (3.5-5.1); SODIUM LEVEL 128 MMOL/L (136-145)
== END ==
LOC: M SFHCCLAY 09:19
PROVIDERS: ATTEND Nurse Practitioner Family
DX: E87.1 Hypo-osmolality and hyponatremia (principal)

== ENCOUNTER → 2022-11-26 | Outpatient (CLI) | payer OTHER ==
[~2022-11-26] MED LIST changes: +SENN-186 PO; -SENN-80 PO
[2022-11-26 12:51] LABS: BLOOD UREA NITROGEN 12 MG/DL (9-23); CALCIUM LEVEL 8.8 MG/DL (8.3-10.6); CARBON DIOXIDE LEVEL 34 MMOL/L (20-31); CHLORIDE LEVEL 99 MMOL/L (98-107); CREATININE FOR GFR 0.71 MG/DL (0.55-1.30); GLOMERULAR FILTRATION RATE > 60.0 (>45); GLUCOSE, FASTING 106 MG/DL (74-106); POTASSIUM SERUM 3.5 MMOL/L (3.5-5.1); SODIUM LEVEL 138 MMOL/L (136-145)
== END ==
LOC: M LAB 11:36
PROVIDERS: ATTEND Nurse Practitioner Family
DX: E87.1 Hypo-osmolality and hyponatremia (principal)

== ENCOUNTER → 2022-11-29 | Outpatient (REF) | payer OTHER | LOC: M LAB REF 16:13 | PROVIDERS: ATTEND Student in an Organized Health Care Education/Training Program | DX: R30.0 Dysuria (principal) ==

== ENCOUNTER → 2023-01-18 | Outpatient (CLI) | payer OTHER ==
[~2023-01-18] MED LIST changes: -LOSA100T45 PO; +LOSA100T46 PO; +POTA-298 PO; -POTA1TAB14 PO
== END ==
LOC: M PLAIMG 09:51
PROVIDERS: ATTEND Internal Medicine Pulmonary Disease
DX: R93.89 Abnormal findings on diagnostic imaging of other specified body structures (principal)

== ENCOUNTER → 2023-01-25 | Outpatient (CLI) | payer OTHER | LOC: M WHC 07:55 | PROVIDERS: ATTEND Registered Nurse Community Health | DX: Z13.820 Encounter for screening for osteoporosis (principal); Z12.31 Encounter for screening mammogram for malignant neoplasm of breast ==

== ENCOUNTER → 2023-01-25 | Outpatient (CLI) | payer OTHER ==
[2023-01-25 11:29] LABS: BASO # 0.1 10^3/uL (0.0-0.2); BASO % 1.7 % (0.0-1.0); EOS # 0.1 10^3/uL (0.0-0.5); EOS % 1.3 % (0.0-3.0); HEMATOCRIT 44.2 % (36.0-47.0); HEMOGLOBIN 14.3 g/dl (12.0-15.5); LYMPH # 2.3 10^3/uL (1.5-5.0); LYMPH % 35.8 % (24.0-44.0); MEAN CORPUSCULAR HEMOGLOBIN 32.5 pg (27.0-33.0); MEAN CORPUSCULAR HGB CONC 32.4 g/dl (32.0-36.5); MEAN CORPUSCULAR VOLUME 100.5 fl (80.0-96.0); MONO # 0.6 10^3/uL (0.0-0.8); MONO % 9.6 % (2.0-8.0); NEUTROPHILS # 3.3 10^3/uL (1.5-8.5); NEUTROPHILS % 51.3 % (36.0-66.0); PLATELET COUNT, AUTOMATED 265 10^3/uL (150-450); WHITE BLOOD COUNT 6.4 10^3/uL (4.0-10.0)
[2023-01-25 11:57] LABS: FREE T4 0.97 NG/DL (0.89-1.76)
[2023-01-25 11:58] LABS: ALBUMIN 3.8 G/DL (3.2-5.2); ALKALINE PHOSPHATASE 87 U/L (46-116); ALT/SGPT 13 U/L (7.0-40); AST/SGOT 12 U/L (<34); BILIRUBIN,TOTAL 0.3 MG/DL (0.3-1.2); BLOOD UREA NITROGEN 14 MG/DL (9-23); CALCIUM LEVEL 9.3 MG/DL (8.3-10.6); CARBON DIOXIDE LEVEL 30 MMOL/L (20-31); CHLORIDE LEVEL 105 MMOL/L (98-107); CHOLESTEROL LEVEL 148 MG/DL (<200); CREATININE FOR GFR 0.71 MG/DL (0.55-1.30); GLOMERULAR FILTRATION RATE > 60.0 (>45); GLUCOSE, FASTING 84 MG/DL (74-106); HDL CHOLESTEROL 67.2 MG/DL (>40); LDL CHOLESTEROL 50.8 MG/DL (<100); NON-HDL-C 80.8 MG/DL; POTASSIUM SERUM 4.4 MMOL/L (3.5-5.1); SODIUM LEVEL 140 MMOL/L (136-145); THYROID STIMULATING HORMONE 1.995 uIU/ML (0.55-4.78); TOTAL PROTEIN 6.6 G/DL (5.7-8.2); TRIGLYCERIDES LEVEL 150 MG/DL (<150)
[2023-01-25 13:16] LABS: HEMOGLOBIN A1c 4.7 % (4.0-6.0)
== END ==
LOC: M PLALAB 07:44
PROVIDERS: ATTEND Internal Medicine Cardiovascular Disease
DX: I10 Essential (primary) hypertension (principal); I25.10 Atherosclerotic heart disease of native coronary artery without angina pectoris; Z13.228 Encounter for screening for other metabolic disorders

== ENCOUNTER → 2023-02-10 | Outpatient (CLI) | payer OTHER | LOC: M WHC 08:36 | PROVIDERS: ATTEND Registered Nurse Community Health | DX: R92.8 Other abnormal and inconclusive findings on diagnostic imaging of breast (principal) ==

== ENCOUNTER → 2023-03-04 | Outpatient (REF) | payer OTHER | LOC: M LAB REF 13:09 | PROVIDERS: ATTEND Internal Medicine Pulmonary Disease | DX: R05.9 Cough, unspecified (principal) ==

== ENCOUNTER → 2023-03-21 | Outpatient (CLI) | payer OTHER | LOC: M RAD 06:39 | PROVIDERS: ATTEND Surgery Vascular Surgery | DX: I73.9 Peripheral vascular disease, unspecified (principal) ==

== ENCOUNTER → 2023-04-01 | Outpatient (REF) | payer OTHER | LOC: M LAB REF 10:12 | PROVIDERS: ATTEND Physician Assistant | DX: J43.2 Centrilobular emphysema (principal) ==

== ENCOUNTER → 2023-04-11 | Outpatient (CLI) | payer MEDICARE, OTHER | LOC: M PLARAD 10:02 | PROVIDERS: ATTEND Internal Medicine Pulmonary Disease | DX: R91.8 Other nonspecific abnormal finding of lung field (principal); J43.9 Emphysema, unspecified | CPT/HCPCS: 78815; A9552 ==

== ENCOUNTER → 2023-05-23 | Outpatient (REF) | payer MEDICARE, OTHER, MEDICAID | LOC: M LAB REF 10:23 | PROVIDERS: ATTEND Internal Medicine Pulmonary Disease | DX: R91.8 Other nonspecific abnormal finding of lung field (principal) ==

== ENCOUNTER → 2023-08-08 | Outpatient (CLI) | payer MEDICARE, MEDICAID ==
[~2023-08-08] MED LIST changes: +CEFD1CAP9 PO; -CEFD300C41 PO
[2023-08-08 09:59] LABS: HEMATOCRIT 46.4 % (36.0-47.0); MEAN CORPUSCULAR HEMOGLOBIN 30.1 pg (27.0-33.0); MEAN CORPUSCULAR HGB CONC 32.3 g/dl (32.0-36.5); PLATELET COUNT, AUTOMATED 243 10^3/uL (150-450); RED BLOOD COUNT 4.99 10^6/uL (4.00-5.40); WHITE BLOOD COUNT 6.5 10^3/uL (4.0-10.0)
[2023-08-08 10:32] LABS: ALBUMIN 3.4 G/DL (3.2-5.2); ALKALINE PHOSPHATASE 91 U/L (46-116); ALT/SGPT 10 U/L (7.0-40); AST/SGOT 9 U/L (<34); BILIRUBIN,TOTAL 0.5 MG/DL (0.3-1.2); BLOOD UREA NITROGEN 13 MG/DL (9-23); CALCIUM LEVEL 8.9 MG/DL (8.3-10.6); CARBON DIOXIDE LEVEL 29 MMOL/L (20-31); CHLORIDE LEVEL 104 MMOL/L (98-107); CHOLESTEROL LEVEL 143 MG/DL (<200); CHOLESTEROL RISK RATIO 2.29 (<5); CREATININE FOR GFR 0.58 MG/DL (0.55-1.30); GLOMERULAR FILTRATION RATE > 60.0 (>45); GLUCOSE, FASTING 90 MG/DL (74-106); HDL CHOLESTEROL 62.4 MG/DL (>40); LDL CHOLESTEROL 62.2 MG/DL (<100); NON-HDL-C 80.6 MG/DL; POTASSIUM SERUM 3.9 MMOL/L (3.5-5.1); SODIUM LEVEL 137 MMOL/L (136-145); TRIGLYCERIDES LEVEL 92 MG/DL (<150)
[2023-08-08 11:42] LABS: TOTAL 25(OH) VITAMIN D 42.5 NG/ML (20.0-100.0)
== END ==
LOC: M LAB 08:28
PROVIDERS: ATTEND Registered Nurse
DX: G89.4 Chronic pain syndrome (principal); I10 Essential (primary) hypertension; Z86.73 Personal history of transient ischemic attack (TIA), and cerebral infarction without residual deficits; M80.079 Age-related osteoporosis with current pathological fracture, unspecified ankle and foot; Z79.899 Other long term (current) drug therapy

== ENCOUNTER → 2023-11-04 | Outpatient (CLI) | payer MEDICARE, MEDICAID | LOC: M LAB 08:07 → M RAD 08:07 | PROVIDERS: ATTEND Registered Nurse | DX: J44.9 Chronic obstructive pulmonary disease, unspecified (principal); R05.9 Cough, unspecified ==

== ENCOUNTER → 2023-12-09 | Outpatient (CLI) | payer MEDICARE, MEDICAID | LOC: M RAD 09:15 | PROVIDERS: ATTEND Internal Medicine Pulmonary Disease | DX: R91.8 Other nonspecific abnormal finding of lung field (principal) ==

== ENCOUNTER → 2023-12-14 | Outpatient (REF) | payer MEDICARE, MEDICAID | LOC: M LAB REF 12:03 | PROVIDERS: ATTEND Internal Medicine Pulmonary Disease | DX: J18.9 Pneumonia, unspecified organism (principal) ==

== ENCOUNTER → 2023-12-29 | Outpatient (REF) | payer MEDICARE, MEDICAID | LOC: M LAB REF 12:04 | PROVIDERS: ATTEND Internal Medicine Pulmonary Disease | DX: R91.8 Other nonspecific abnormal finding of lung field (principal); J18.9 Pneumonia, unspecified organism ==

== ENCOUNTER → 2024-01-25 | Outpatient (CLI) | payer MEDICARE, MEDICAID ==
[~2024-01-25] MED LIST changes: +ONDA-282 PO; -ONDA4TAB6 PO
== END ==
LOC: M LAB 06:56
PROVIDERS: ATTEND Registered Nurse
DX: E87.6 Hypokalemia (principal)

== ENCOUNTER → 2024-03-20 | Outpatient (CLI) | payer MEDICARE, MEDICAID | LOC: M WHC 13:37 | PROVIDERS: ATTEND Registered Nurse | DX: Z12.31 Encounter for screening mammogram for malignant neoplasm of breast (principal) ==

== ENCOUNTER → 2024-04-12 | Outpatient (REF) | payer MEDICARE, MEDICAID | LOC: M LAB REF 16:10 | PROVIDERS: ATTEND Physician Assistant | DX: B34.9 Viral infection, unspecified (principal) ==

== ENCOUNTER → 2024-04-16 | Outpatient (CLI) | payer MEDICARE, MEDICAID | LOC: M PLAIMG 09:39 | PROVIDERS: ATTEND Internal Medicine Pulmonary Disease | DX: R91.8 Other nonspecific abnormal finding of lung field (principal) ==

== ENCOUNTER → 2024-05-30 | Outpatient (REF) | payer MEDICARE, MEDICAID | LOC: M LAB REF 13:13 | PROVIDERS: ATTEND Internal Medicine Pulmonary Disease | DX: J44.1 Chronic obstructive pulmonary disease with (acute) exacerbation (principal) ==

== ENCOUNTER → 2024-07-05 | Outpatient (REF) | payer MEDICARE, MEDICAID | LOC: M LAB REF 17:11 | PROVIDERS: ATTEND Internal Medicine Pulmonary Disease | DX: J44.1 Chronic obstructive pulmonary disease with (acute) exacerbation (principal) ==

== ENCOUNTER → 2024-08-20 | Outpatient (CLI) | payer MEDICARE, MEDICAID | LOC: M PLAIMG 08:51 | PROVIDERS: ATTEND Pain Medicine Pain Medicine | DX: M54.50 Low back pain, unspecified (principal); M54.6 Pain in thoracic spine ==

== ENCOUNTER → 2024-09-20 | Outpatient (CLI) | payer MEDICARE, MEDICAID | LOC: M PLAIMG 09:56 | PROVIDERS: ATTEND Internal Medicine Pulmonary Disease | DX: J44.1 Chronic obstructive pulmonary disease with (acute) exacerbation (principal) ==

== ENCOUNTER → 2024-10-18 | Outpatient (CLI) | payer MEDICARE, MEDICAID | LOC: M RAD 09:20 | PROVIDERS: ATTEND Internal Medicine Pulmonary Disease | DX: R91.8 Other nonspecific abnormal finding of lung field (principal) ==

== ENCOUNTER → 2024-10-22 | Outpatient (REF) | payer MEDICARE, MEDICAID, OTHER | LOC: M LAB REF 17:42 | PROVIDERS: ATTEND Internal Medicine Pulmonary Disease | DX: R91.8 Other nonspecific abnormal finding of lung field (principal) ==

== ENCOUNTER → 2024-11-29 | Outpatient (CLI) | payer MEDICARE, MEDICAID ==
[2024-11-29 15:10] LABS: HEMATOCRIT 45.5 % (36.0-47.0); HEMOGLOBIN 14.9 g/dl (12.0-15.5); MEAN CORPUSCULAR HEMOGLOBIN 32.7 pg (27.0-33.0); MEAN CORPUSCULAR HGB CONC 32.7 g/dl (32.0-36.5); MEAN CORPUSCULAR VOLUME 99.8 fl (80.0-96.0); PLATELET COUNT, AUTOMATED 254 10^3/uL (150-450); RED BLOOD COUNT 4.56 10^6/uL (4.00-5.40); WHITE BLOOD COUNT 7.8 10^3/uL (4.0-10.0)
[2024-11-29 15:44] LABS: ALBUMIN 3.7 G/DL (3.2-5.2); ALKALINE PHOSPHATASE 61 U/L (35-104); ALT/SGPT 20 U/L (7.0-40); AST/SGOT 18 U/L (<34); BILIRUBIN,TOTAL 0.4 MG/DL (0.3-1.2); BLOOD UREA NITROGEN 12 MG/DL (9-23); CALCIUM LEVEL 9.2 MG/DL (8.3-10.6); CARBON DIOXIDE LEVEL 29 MMOL/L (20-31); CHLORIDE LEVEL 104 MMOL/L (98-107); CHOLESTEROL LEVEL 139 MG/DL (<200); CHOLESTEROL RISK RATIO 1.86 (<5); CREATININE FOR GFR 0.61 MG/DL (0.55-1.30); GLOMERULAR FILTRATION RATE > 90.0 (>45); GLUCOSE, FASTING 81 MG/DL (74-106); HDL CHOLESTEROL 74.5 MG/DL (>40); LDL CHOLESTEROL 48.1 MG/DL (<100); NON-HDL-C 64.5 MG/DL; POTASSIUM SERUM 4.2 MMOL/L (3.5-5.1); SODIUM LEVEL 142 MMOL/L (136-145); TOTAL 25(OH) VITAMIN D 33.1 NG/ML (20.0-100.0); TOTAL PROTEIN 6.6 G/DL (5.7-8.2); TRIGLYCERIDES LEVEL 82 MG/DL (<150)
== END ==
LOC: M PLALAB 11:05
PROVIDERS: ATTEND Registered Nurse
DX: I10 Essential (primary) hypertension (principal); Z13.220 Encounter for screening for lipoid disorders; M81.0 Age-related osteoporosis without current pathological fracture

== ENCOUNTER → 2025-03-11 | Outpatient (CLI) | payer MEDICARE, MEDICAID ==
[~2025-03-11] MED LIST changes: +AMLO-751 PO; -AMLO10TA PO
== END ==
LOC: M PLAIMG 07:55
PROVIDERS: ATTEND Internal Medicine Pulmonary Disease
DX: R91.8 Other nonspecific abnormal finding of lung field (principal)

== ENCOUNTER → 2025-04-15 | Outpatient (CLI) | payer MEDICARE, MEDICAID ==
[~2025-04-15] MED LIST changes: +PROZ10CA11 PO; -PROZ10CA7 PO
== END ==
LOC: M PLALAB 10:01
PROVIDERS: ATTEND Physician Assistant
DX: J47.9 Bronchiectasis, uncomplicated (principal)

== ENCOUNTER → 2025-04-17 | Outpatient (REF) | payer MEDICARE, MEDICAID | LOC: M LAB REF 10:11 | PROVIDERS: ATTEND Physician Assistant | DX: J47.9 Bronchiectasis, uncomplicated (principal) ==

== ENCOUNTER → 2025-05-08 | Outpatient (REF) | payer MEDICARE, MEDICAID | LOC: M LAB REF 13:00 | PROVIDERS: ATTEND Internal Medicine Pulmonary Disease | DX: J47.9 Bronchiectasis, uncomplicated (principal) ==

== ENCOUNTER 2025-06-04 04:32 | Emergency (ER) | payer MEDICARE, MEDICAID ==
[~2025-06-04] VITALS: Ht 160 cm; Wt 50.8 kg
[2025-06-04] MEDS: MORPHINE 4 MG/ML 1 ML VIAL IV PRN (05:53)
[2025-06-04] MEDS: ONDANSETRON 4MG 2ML VIAL IV ONE (05:53)
[2025-06-04 05:58] LABS: BASO # 0.1 10^3/uL (0.0-0.2); BASO % 0.8 % (0.0-1.0); EOS # 0.1 10^3/uL (0.0-0.5); EOS % 0.6 % (0.0-3.0); LYMPH # 1.6 10^3/uL (1.5-5.0); LYMPH % 19.5 % (24.0-44.0); MONO # 0.7 10^3/uL (0.0-0.8); MONO % 8.3 % (2.0-8.0); NEUTROPHILS # 5.8 10^3/uL (1.5-8.5); NEUTROPHILS % 70.3 % (36.0-66.0); PLATELET COUNT, AUTOMATED 219 10^3/uL (150-450)
[2025-06-04 06:05] LABS: INR 0.99
[2025-06-04 06:15] LABS: C REACTIVE PROTEIN QUANTITATIV 0.87 MG/DL (<1.0); CALCIUM LEVEL 9.3 MG/DL (8.3-10.6); CARBON DIOXIDE LEVEL 31 MMOL/L (20-31); CHLORIDE LEVEL 103 MMOL/L (98-107); CREATININE FOR GFR 0.65 MG/DL (0.55-1.30); GLOMERULAR FILTRATION RATE > 90.0 (>45); POTASSIUM SERUM 4.7 MMOL/L (3.5-5.1); SODIUM LEVEL 142 MMOL/L (136-145)
[2025-06-04] MEDS: NS (Normal Saline) 0.9% 1,000 ML IV ONE ×2 (07:50→19:14)
[2025-06-04] MEDS: MORPHINE 4 MG/ML 1 ML VIAL IV ONE ×2 (08:05→15:03)
[2025-06-04] MEDS ORDERED: ISOVUE-370 76% 100 ML VIAL As Ordered ONE (08:25)
[2025-06-04] MEDS ORDERED: AMLO1TAB24 PO (12:27)
[2025-06-04] MEDS ORDERED: ALEN70TA82 PO (12:27)
[2025-06-04] MEDS ORDERED: HOME MED LIST COMPLETE! XX SCH (12:30)
[2025-06-04] MEDS ORDERED: HEPARIN SOD 5000 UNITS/ML 1 ML VIAL/SYRINGE IV PRN (16:55)
[2025-06-04] MEDS: HEPARIN DRIP 25,000 UNITS in IV 1 EA IV SCH (17:36)
[2025-06-04] MEDS: HEPARIN SOD 5000 UNITS/ML 1 ML VIAL/SYRINGE IV ONE (17:36)
[2025-06-04] MEDS: ACETAMINOPHEN 325 MG TAB PO ONE (18:11)
[2025-06-04 18:46] VITALS: TEMP 99.4
[2025-06-04 19:00] VITALS: BP 125/57; O2SAT 94
== END 2025-06-04 19:14 | disposition short-term general hospital (02) ==
LOC: M ED 04:32
DX: I65.22 Occlusion and stenosis of left carotid artery (principal); I48.91 Unspecified atrial fibrillation; I10 Essential (primary) hypertension; J44.9 Chronic obstructive pulmonary disease, unspecified; F41.9 Anxiety disorder, unspecified; Z86.73 Personal history of transient ischemic attack (TIA), and cerebral infarction without residual deficits; Z87.891 Personal history of nicotine dependence; Z88.0 Allergy status to penicillin; Z88.1 Allergy status to other antibiotic agents; Z88.5 Allergy status to narcotic agent; Z79.51 Long term (current) use of inhaled steroids; Z79.01 Long term (current) use of anticoagulants; Z79.899 Other long term (current) drug therapy
CPT/HCPCS: 73130; 73206; 80048; 83605; 85025; 85610; 85730; 86140; 87486; 87581; 87633; 87798; 93971; 96374; 96375; 96376; 99285; J2405; Q9967

== ENCOUNTER 2025-06-21 05:35 | Emergency (ER) | payer MEDICARE, MEDICAID ==
[~2025-06-21] VITALS: Ht 162.6 cm; Wt 47.2 kg
[~2025-06-21 05:35] MED LIST changes: +ALEN70TA82 PO
[2025-06-21] MEDS ORDERED: CLOP75TA2 (05:50)
[2025-06-21] MEDS: ONDANSETRON 4MG/2ML VIAL IV ONE (07:58)
[2025-06-21] MEDS: MORPHINE 4 MG/ML 1 ML VIAL IV ONE (08:01)
[2025-06-21] MEDS ORDERED: HEPARIN SOD 5000 UNITS/ML 1 ML VIAL/SYRINGE IV PRN (08:05)
[2025-06-21 08:06] LABS: BASO # 0.1 10^3/uL (0.0-0.2); BASO % 0.3 % (0.0-1.0); EOS # 0.0 10^3/uL (0.0-0.5); EOS % 0.0 % (0.0-3.0); LYMPH # 1.7 10^3/uL (1.5-5.0); LYMPH % 6.1 % (24.0-44.0); MONO # 1.6 10^3/uL (0.0-0.8); MONO % 5.7 % (2.0-8.0); NEUTROPHILS # 23.4 10^3/uL (1.5-8.5); NEUTROPHILS % 85.9 % (36.0-66.0); PLATELET COUNT, AUTOMATED 522 10^3/uL (150-450)
[2025-06-21] MEDS ORDERED: ISOVUE-370 76% 100 ML VIAL As Ordered ONE (08:19)
[2025-06-21 08:28] LABS: INR 1.36
[2025-06-21] MEDS: HEPARIN SOD 5000 UNITS/ML 1 ML VIAL/SYRINGE IV ONE (09:00)
[2025-06-21] MEDS: HEPARIN DRIP 25,000 UNITS in IV 1 EA IV SCH (09:02)
[2025-06-21] MEDS: NS (Normal Saline) 0.9% 1,000 ML IV ONE (09:16)
[2025-06-21] MEDS: MORPHINE 2 MG/ML 1 ML VIAL IV ONE (09:27)
[2025-06-21 09:39] VITALS: BP 154/68; TEMP 97.2; O2SAT 98
== END 2025-06-21 09:39 | disposition short-term general hospital (02) ==
LOC: M ED 05:35
DX: M62.262 Nontraumatic ischemic infarction of muscle, left lower leg (principal); I74.5 Embolism and thrombosis of iliac artery; I73.9 Peripheral vascular disease, unspecified; R00.0 Tachycardia, unspecified; Z87.891 Personal history of nicotine dependence; Z88.0 Allergy status to penicillin; Z88.1 Allergy status to other antibiotic agents; Z88.5 Allergy status to narcotic agent
CPT/HCPCS: 71045; 75635; 80047; 83605; 85025; 85610; 85730; 93005; 96365; 96375; 96376; 99285; J2405; Q9967